=== PATIENT | female | born 1950 | race Caucasian/White ===

== ENCOUNTER → 2016-10-06 | Outpatient (CLI) | payer OTHER ==
[~2016-10-06] MED LIST: ACT/30 PO; CALC500C3 PO; CEPH500C2 PO; CHOL100027 PO; HYDR12.56 PO; INSDGI SC; LEVO1TAB PO; LEVO88TA3 PO; LISI2.5T5 PO; LSN5 PO; METF1000 PO; OXYC7.5T78 PO; SIMV40TA4 PO
--- NOTE | 2016-10-07 07:38 | MAMMOGRAPHY REPORT ---
BILATERAL DIGITAL SCREENING MAMMOGRAM TOMOSYNTHESIS WITH CAD: 10/06/2016 CLINICAL HISTORY: Routine screening. Patient has no complaints. TECHNIQUE: Breast tomosynthesis in addition to standard 2D mammography was performed. Current study was also evaluated with a Computer Aided Detection (CAD) system. COMPARISON: Comparison is made to exams dated: 10/04/2015 mammogram, 01/23/2014 mammogram, 11/29/2012 ammogram [facility], and 02/21/2007. BREAST COMPOSITION: There are scattered areas of fibroglandular density in both breasts. FINDINGS: There are stable intramammary lymph nodes in the upper outer posterior right breast. A st able asymmetry in the superior posterior right breast. No new suspicious mass, architectural distor tion or cluster of microcalcifications is seen. IMPRESSION: ACR BI-RADS CATEGORY 1: NEGATIVE There is no mammographic evidence of malignancy. A 1 year screening mammogram is recommended. The p atient will receive written notification of the results. Approximately 10% of breast cancers are not detected with mammography. A negative mammographic repor t should not delay biopsy if a clinically suggestive mass is present. Berenice Bautista M.D. ay/:10/06/2016 16:20:51 Demolition Hammer Operator: Delicia HOLDEN(Alejandro)(Kyle), [facility] letter sent: Normal 1/2 BI-RADS Code: ACR BI-RADS Category 1: Negative
== END | disposition home or self-care (01) ==
LOC: C.MAMM 09:36
PROVIDERS: ATTEND Internal Medicine
DX: Z12.31 Encounter for screening mammogram for malignant neoplasm of breast (principal)

== ENCOUNTER → 2016-10-10 | Outpatient (CLI) | payer OTHER ==
[2016-10-10 13:37] LABS: ESTIMATED AVERAGE GLUCOSE 160 mg/dl; HA1C FLAG Normal (Normal)
[2016-10-10 13:38] LABS: ALT/SGPT 34 U/L (12-78); BLOOD UREA NITROGEN 17 mg/dl (7-18); CALCIUM 8.6 mg/dl (8.5-10.1); CARBON DIOXIDE 27 mmol/L (21-32); CHLORIDE 100 mmol/L (98-107); CREATININE 0.82 mg/dl (0.60-1.20); GLUCOSE 137 mg/dl (70-99); POTASSIUM 4.5 mmol/L (3.5-5.1); SODIUM 137 mmol/L (136-145)
[2016-10-10 13:49] LABS: ALB/GLOB RATIO 1.1 (0.9-2); ALKALINE PHOSPHATASE 68 U/L (45-117); AST/SGOT 27 U/L (15-37); CHOLESTEROL 121 mg/dl (0-200); CHOLESTEROL/HDL RATIO 2.4; HDL CHOLESTEROL 51 mg/dl; LDL CHOLESTEROL CALCULATED 43 mg/dl; TRIGLYCERIDES 133 mg/dl (0-150); VERY LOW DENSITY LIPOPROT CALC 27 mg/dl
== END ==
LOC: C.LABPVFM 08:26
PROVIDERS: ATTEND Internal Medicine
DX: E11.9 Type 2 diabetes mellitus without complications (principal); E55.9 Vitamin D deficiency, unspecified; E89.0 Postprocedural hypothyroidism

== ENCOUNTER → 2017-04-07 | Day surgery (SDC) | payer OTHER ==
[2017-03-25 09:16] VITALS: Ht 161.3 cm; Wt 62.3 kg
[~2017-04-07] VITALS: Ht 161.3 cm; Wt 62.3 kg
[~2017-04-07] MED LIST changes: +500ML BSS 0.3ML EPI 1:1000PF IRRIG ONE; +ACETAMINOPHEN 325 MG TAB PO PRN; -ACT/30 PO; +AMVISC PLUS 0.8ML SYRINGE INT OCU ONE; +ATROPINE SULFATE 0.1 MG/ML 5ML SYR IV PRN; +BSS FLUSH ONE; -CEPH500C2 PO; +ENDOCOAT 0.85ML SYRINGE INT OCU ONE; +EpHEDrine SULFATE INJ 50 MG/ML AMP IV PRN; +EpINEphrine INJ 1MG/ML AMP 1 MG/ML AMP ONE; -HYDR12.56 PO; +LACTATED RINGER'S 1000ML 500 ML IV SCH; -LEVO1TAB PO; +LIDOCAINE 4% OP SOLN DROP CHARGE ONE; +LIDOCAINE 4% OP SOLN DROP CHARGE OPL SCH; +LIDOCAINE HCL 1% MPF 2 ML VIAL ONE; -LISI2.5T5 PO; +MIDAZOLAM HCL 1 MG/ML 2ML VIAL ONE; +MIX: 4ML BSS 1ML EPI 1:1000 PF TOP ONE; +MOXIFLOXACIN OPH SOLN PER DROP CHARGE ONE; -OXYC7.5T78 PO; +POVIDONE-IODINE OP SOLN 30 ML BTL ONE; +PROPARACAINE 0.5% OP SOLN PER DROP CHARGE OPL SCH; +TOBRAMYCIN/DEXAMETHASONE OPH OINT PER APPLN CHARGE ONE
--- NOTE | 2017-04-07 08:03 | History & Physical Bridge - SC ---
H&P Re-Evaluation Bridge Note: I have examined the patient, reviewed the History & Physical and in the interval since the performance of the History & Physical I have noted the following changes of clinical significance: No changes noted
[2017-04-07] MEDS: PHENYLEPHRINE HCL 2.5% OP SOLN PER DROP CHARGE OPL SCH ×3 (08:13→08:26)
[2017-04-07] MEDS: TROPICAMIDE 1% OP SOLN PER DROP CHARGE OPL SCH ×3 (08:14→08:27)
[2017-04-07] MEDS: MOXIFLOXACIN OPH SOLN PER DROP CHARGE OPL SCH ×3 (08:15→08:29)
[2017-04-07] MEDS: CYCLOPENTOLATE HCL 1% OP SOLN PER DROP CHARGE OPL SCH ×3 (08:15→08:28)
--- NOTE | 2017-04-07 09:16 | [facility] Post Operative Brief Note ---
Immediate Operative Summary Operative Date Apr 07, 2017. Pre-Operative Diagnosis Left Eye Cataract Post-Operative Diagnosis Same Procedure(s) Performed Left Eye Cataract PHacoemuslification With Intraocular Lens Implant Surgeon Dr. Carey Aquatic Director Surgeon(s) none Estimated Blood Loss None Findings left cataract Specimens None Complication(s) None Disposition
--- NOTE | 2017-04-07 09:17 | [facility] Operative Report ---
Operative Report Date of Service Apr 07, 2017. Operative Report Phaco with monofocal IOL DATE OF OPERATION: 04/07/17 PREOPERATIVE DIAGNOSIS: Senile nuclear cataract, left eye POSTOPERATIVE DIAGNOSIS: Senile nuclear cataract, left eye PROCEDURE PERFORMED: Phacoemulsification with intraocular lens implantation, left eye SURGEON: Dr. Mariano Carey ANESTHESIA: Topical with 1% intracameral lidocaine and monitored anesthesia care COMPLICATIONS: None DESCRIPTION OF PROCEDURE: After positively identifying the patient both verbally and by wristband in the preoperative area, the left eye was marked as the operative eye. The patient was then brought back to the operating room by the anesthesia and nursing staff where they were given a drop of Lidocaine and betadine into the operative eye. They were then sterilely prepped and draped in the standard fashion typical for ophthalmic surgery. Steri-strips were placed along the upper eyelids to keep the lashes back, and a lid speculum was placed into the operative eye. At this point, a documented time out was performed with members of the ophthalmology, nursing, and anesthesia staffs all agreeing upon the correct patient, correct location for surgery, correct procedure, and correct type and power of intraocular lens to be implanted. The microscope was then swung into position. First, a paracentesis wound was made using a sideport blade. Then, in sequence, 1% preservative-free lidocaine followed by Endocoat viscoelastic was injected into the anterior chamber. Next , the main incision was made with a keratome blade in triplanar fashion. A sharp cystotome was introduced into the eye and used to create a tear in the anterior capsule, which was directed into a continuous curvilinear capsulorrhexis using Utrata forceps. Hydrodissection was then performed with BSS on a flat-tip cannula. Next, the phacoemulsification handpiece was introduced into the eye and used to remove the nucleus in a [id number] fashion. This was done without complication and then the irrigation-aspiration handpiece was introduced into the eye and used to remove all remaining cortical and epinuclear material. Amvisc was then injected into the anterior chamber as well as into the capsular bag and using the lens injector system, an MX60 18.0 D lens, serial number [id number], and expiration date 09/2019 was injected into the capsular bag and rotated into the correct position. Next, the irrigation- aspiration handpiece was used to remove all remaining Amvisc. BSS was used to hydrate the main wound, and then BSS was injected into the paracentesis site to reach physiologic pressure and then the main wound was checked and found to be watertight. The patient was given drops of Vigamox and Tobradex ointment into the operative eye, and then the surrounding area was cleaned and dried. A clear plastic shield was placed over the eye and the patient was then sat up and taken from the operating room by the anesthesia staff having tolerated the procedure well and suffering no complications. DISPOSITION: The patient was returned to the recovery room in stable condition. I attest to the content of the Intraoperative Record and any orders documented therein. Any exceptions are noted below.
--- NOTE | 2017-04-07 09:18 | Discharge Instructions-SurgCtr ---
Discharge Instructions Date of Service Apr 07, 2017. Visit Reason for Visit: Cataract Left Eye Discharge Discharge Diagnosis / Problem: left cataract Discharge Goals Goal(s): Decrease discomfort, Improve function Activity Recommendations Activity Limitations: as noted below Anesthesia . Post Anesthesia Instructions: If you have had General Anesthesia or IV Sedation: * Do not drive today. * Resume driving when surgeon permits. * Do not make important decisions or sign legal documents today. * Call surgeon for: 1. Temperature elevations greater than 101 degrees F. 2. Uncontrollable pain. 3. Excessive bleeding. 4. Persistent nausea and vomiting. 5. Medication intolerance (nausea, vomiting or rash). * For nausea and vomiting use only clear liquids such as: tea, soda, bouillon until nausea subsides, then gradually increase diet as tolerated. * If you have any concerns or questions, call your surgeon's office. If physician is unavailable and it is an emergency, call 911 or go to the nearest emergency room. . Instructions / Follow-Up Instructions / Follow-Up ACTIVITY RECOMMENDATIONS: * Light activities. * You may walk outside, read, watch television. * You may notice redness on the white part of the eye and some blurry vision - this is normal. MEDICATIONS: Resume previous medications unless instructed otherwise by your surgeon. Start all eye drops at 11:30 am today: * Eye drops (today): Prednisone - one drop in operative eye every 2 hours while awake Ofloxacin - one drop in operative eye every 2 hours while awake Bromfenac - one drop in operative eye daily SPECIAL CARE INSTRUCTIONS: * Tape plastic shield over eye to sleep at night. Call your doctor at with any concerns or problems. FOLLOW UP VISIT: Follow-up with Dr Carey at [facility] as scheduled. Diet Recommendations Home Diet: no limitations Procedures Procedures Performed: Left Eye Cataract PHacoemuslification With Intraocular Lens Implant Pending Studies Studies pending at discharge: no Medical Emergencies . Who to Call and When: Medical Emergencies: If at any time you feel your situation is an emergency, please call 911 immediately. . Non-Emergent Contact Non-Emergency issues call your: Surgeon . . "Provider Documentation" section prepared by Mariano Carey. .
[2017-04-07 09:20] VITALS: TEMP 36.7
--- NOTE | 2017-04-07 09:24 | Anesthesia Progress Nt - [facility] ---
Anesthesia Post Op Note Date & Time Apr 07, 2017 at 09:24 Vital Signs Pain Intensity: 0 Vital Signs Past 12 Hours Date Time Temp Pulse Resp B/P (MAP) Pulse Ox O2 Delivery O2 Flow Rate FiO2 04/07/17 09:20 36.7 68 12 120/76 (91) 100 Room Air 04/07/17 08:25 36.4 82 16 124/73 (90) 97 Room Air Notes Mental Status: alert / awake / arousable, participated in evaluation Pt Amnestic to Procedure: Yes Nausea / Vomiting: adequately controlled Pain: adequately controlled Airway Patency, RR, SpO2: stable & adequate BP & HR: stable & adequate Hydration State: stable & adequate Anesthetic Complications: no major complications apparent
[2017-04-07 09:41] VITALS: BP 107/64; PULSE 74; O2SAT 100
== END | disposition home or self-care (01) ==
LOC: X.SURG 07:42
PROVIDERS: ATTEND Ophthalmology
DX: H25.12 Age-related nuclear cataract, left eye (principal); E11.36 Type 2 diabetes mellitus with diabetic cataract; I10 Essential (primary) hypertension; E78.00 Pure hypercholesterolemia, unspecified; E07.9 Disorder of thyroid, unspecified; Z79.82 Long term (current) use of aspirin; Z79.84 Long term (current) use of oral hypoglycemic drugs; Z79.899 Other long term (current) drug therapy

== ENCOUNTER → 2017-04-21 | Day surgery (SDC) | payer OTHER ==
[2017-04-20 13:39] VITALS: Ht 161.3 cm; Wt 62.3 kg
[~2017-04-21] VITALS: Ht 161.3 cm; Wt 62.3 kg
[~2017-04-21] MED LIST changes: -LIDOCAINE 4% OP SOLN DROP CHARGE OPL SCH; +LIDOCAINE 4% OP SOLN DROP CHARGE OPR SCH; -PROPARACAINE 0.5% OP SOLN PER DROP CHARGE OPL SCH; +PROPARACAINE 0.5% OP SOLN PER DROP CHARGE OPR SCH
[2017-04-21] MEDS: PHENYLEPHRINE HCL 2.5% OP SOLN PER DROP CHARGE OPR SCH ×3 (07:52→08:02)
[2017-04-21] MEDS: TROPICAMIDE 1% OP SOLN PER DROP CHARGE OPR SCH ×3 (07:53→08:03)
[2017-04-21] MEDS: CYCLOPENTOLATE HCL 1% OP SOLN PER DROP CHARGE OPR SCH ×3 (07:54→08:04)
[2017-04-21] MEDS: MOXIFLOXACIN OPH SOLN PER DROP CHARGE OPR SCH ×3 (07:56→08:05)
--- NOTE | 2017-04-21 09:13 | [facility] Post Operative Brief Note ---
Immediate Operative Summary Operative Date Apr 21, 2017. Pre-Operative Diagnosis Right Eye Cataract Post-Operative Diagnosis Same Procedure(s) Performed Right Cataract Phacoemulsification With Intraocular Lens Implant Surgeon Dr Carey Feed Handler Surgeon(s) None Estimated Blood Loss 0ml Findings right cataract Specimens None Complication(s) None Disposition
--- NOTE | 2017-04-21 09:14 | [facility] Operative Report ---
Operative Report Date of Service Apr 21, 2017. Operative Report Phaco with monofocal IOL DATE OF OPERATION: 04/21/17 PREOPERATIVE DIAGNOSIS: Senile nuclear cataract, right eye POSTOPERATIVE DIAGNOSIS: Senile nuclear cataract, right eye PROCEDURE PERFORMED: Phacoemulsification with intraocular lens implantation, right eye SURGEON: Dr. Mariano Carey ANESTHESIA: Topical with 1% intracameral lidocaine and monitored anesthesia care COMPLICATIONS: None DESCRIPTION OF PROCEDURE: After positively identifying the patient both verbally and by wristband in the preoperative area, the right eye was marked as the operative eye. The patient was then brought back to the operating room by the anesthesia and nursing staff where they were given a drop of Lidocaine and betadine into the operative eye. They were then sterilely prepped and draped in the standard fashion typical for ophthalmic surgery. Steri-strips were placed along the upper eyelids to keep the lashes back, and a lid speculum was placed into the operative eye. At this point, a documented time out was performed with members of the ophthalmology, nursing, and anesthesia staffs all agreeing upon the correct patient, correct location for surgery, correct procedure, and correct type and power of intraocular lens to be implanted. The microscope was then swung into position. First, a paracentesis wound was made using a sideport blade. Then, in sequence, 1% preservative-free lidocaine followed by Endocoat viscoelastic was injected into the anterior chamber. Next , the main incision was made with a keratome blade in triplanar fashion. A sharp cystotome was introduced into the eye and used to create a tear in the anterior capsule, which was directed into a continuous curvilinear capsulorrhexis using Utrata forceps. Hydrodissection was then performed with BSS on a flat-tip cannula. Next, the phacoemulsification handpiece was introduced into the eye and used to remove the nucleus in a [id number] fashion. This was done without complication and then the irrigation-aspiration handpiece was introduced into the eye and used to remove all remaining cortical and epinuclear material. Amvisc was then injected into the anterior chamber as well as into the capsular bag and using the lens injector system, an MX60 22.0 D lens, serial number [id number], and expiration date 01/2020 was injected into the capsular bag and rotated into the correct position. Next, the irrigation- aspiration handpiece was used to remove all remaining Amvisc. BSS was used to hydrate the main wound, and then BSS was injected into the paracentesis site to reach physiologic pressure and then the main wound was checked and found to be watertight. The patient was given drops of Vigamox and Tobradex ointment into the operative eye, and then the surrounding area was cleaned and dried. A clear plastic shield was placed over the eye and the patient was then sat up and taken from the operating room by the anesthesia staff having tolerated the procedure well and suffering no complications. DISPOSITION: The patient was returned to the recovery room in stable condition. I attest to the content of the Intraoperative Record and any orders documented therein. Any exceptions are noted below.
[2017-04-21 09:15] VITALS: TEMP 36.4
--- NOTE | 2017-04-21 09:15 | Discharge Instructions-SurgCtr ---
Discharge Instructions Date of Service Apr 21, 2017. Visit Reason for Visit: Right Cataract Discharge Discharge Diagnosis / Problem: right cataract Discharge Goals Goal(s): Decrease discomfort, Improve function Medications Stopped Medications Name(s): Metformin last dose Wednesday evening. Also , only took 16 units of insulin last night instead of 20. Activity Recommendations Activity Limitations: as noted below Anesthesia . Post Anesthesia Instructions: If you have had General Anesthesia or IV Sedation: * Do not drive today. * Resume driving when surgeon permits. * Do not make important decisions or sign legal documents today. * Call surgeon for: 1. Temperature elevations greater than 101 degrees F. 2. Uncontrollable pain. 3. Excessive bleeding. 4. Persistent nausea and vomiting. 5. Medication intolerance (nausea, vomiting or rash). * For nausea and vomiting use only clear liquids such as: tea, soda, bouillon until nausea subsides, then gradually increase diet as tolerated. * If you have any concerns or questions, call your surgeon's office. If physician is unavailable and it is an emergency, call 911 or go to the nearest emergency room. . Instructions / Follow-Up Instructions / Follow-Up ACTIVITY RECOMMENDATIONS: * Light activities. * You may walk outside, read, watch television. * You may notice redness on the white part of the eye and some blurry vision - this is normal. MEDICATIONS: Resume previous medications unless instructed otherwise by your surgeon. Start all eye drops at 11:30 am today: * Eye drops (today): Prednisone - one drop in operative eye every 2 hours while awake Ofloxacin - one drop in operative eye every 2 hours while awake Bromfenac - one drop in operative eye daily SPECIAL CARE INSTRUCTIONS: * Tape plastic shield over eye to sleep at night. Call your doctor at with any concerns or problems. FOLLOW UP VISIT: Follow-up with Dr Carey at [facility] as scheduled. Diet Recommendations Home Diet: no limitations Procedures Procedures Performed: Right Cataract Phacoemulsification With Intraocular Lens Implant Pending Studies Studies pending at discharge: no Medical Emergencies . Who to Call and When: Medical Emergencies: If at any time you feel your situation is an emergency, please call 911 immediately. . Non-Emergent Contact Non-Emergency issues call your: Surgeon . . "Provider Documentation" section prepared by Mariano Carey. .
--- NOTE | 2017-04-21 09:38 | Anesthesia Progress Nt - [facility] ---
Anesthesia Post Op Note Date & Time Apr 21, 2017 at 09:38 Vital Signs Pain Intensity: 0 Vital Signs Past 12 Hours Date Time Temp Pulse Resp B/P (MAP) Pulse Ox O2 Delivery O2 Flow Rate FiO2 04/21/17 09:15 36.4 75 16 113/68 (83) 100 Room Air 04/21/17 07:43 36.3 70 22 137/80 (99) 98 Room Air Notes Mental Status: alert / awake / arousable, participated in evaluation Pt Amnestic to Procedure: Yes Nausea / Vomiting: adequately controlled Pain: adequately controlled Airway Patency, RR, SpO2: stable & adequate BP & HR: stable & adequate Hydration State: stable & adequate Anesthetic Complications: no major complications apparent
[2017-04-21 09:40] VITALS: BP 114/60; PULSE 67; O2SAT 100
== END | disposition home or self-care (01) ==
LOC: X.SURG 07:36
PROVIDERS: ATTEND Ophthalmology
DX: H25.11 Age-related nuclear cataract, right eye (principal); I10 Essential (primary) hypertension; E78.00 Pure hypercholesterolemia, unspecified; E03.9 Hypothyroidism, unspecified; E11.9 Type 2 diabetes mellitus without complications; Z79.82 Long term (current) use of aspirin; Z79.84 Long term (current) use of oral hypoglycemic drugs; Z79.899 Other long term (current) drug therapy

== ENCOUNTER → 2017-05-11 | Outpatient (CLI) | payer OTHER ==
[~2017-05-11] MED LIST changes: -500ML BSS 0.3ML EPI 1:1000PF IRRIG ONE; -ACETAMINOPHEN 325 MG TAB PO PRN; -AMVISC PLUS 0.8ML SYRINGE INT OCU ONE; -ATROPINE SULFATE 0.1 MG/ML 5ML SYR IV PRN; -BSS FLUSH ONE; -ENDOCOAT 0.85ML SYRINGE INT OCU ONE; -EpHEDrine SULFATE INJ 50 MG/ML AMP IV PRN; -EpINEphrine INJ 1MG/ML AMP 1 MG/ML AMP ONE; -LACTATED RINGER'S 1000ML 500 ML IV SCH; -LIDOCAINE 4% OP SOLN DROP CHARGE ONE; -LIDOCAINE 4% OP SOLN DROP CHARGE OPR SCH; -LIDOCAINE HCL 1% MPF 2 ML VIAL ONE; -MIDAZOLAM HCL 1 MG/ML 2ML VIAL ONE; -MIX: 4ML BSS 1ML EPI 1:1000 PF TOP ONE; -MOXIFLOXACIN OPH SOLN PER DROP CHARGE ONE; -POVIDONE-IODINE OP SOLN 30 ML BTL ONE; -PROPARACAINE 0.5% OP SOLN PER DROP CHARGE OPR SCH; -TOBRAMYCIN/DEXAMETHASONE OPH OINT PER APPLN CHARGE ONE
[2017-05-11 13:01] LABS: ESTIMATED AVERAGE GLUCOSE 163 mg/dl; HA1C FLAG Normal (Normal)
[2017-05-11 13:10] LABS: HEPATITIS B AB NEG
[2017-05-11 13:54] LABS: ALT/SGPT 26 U/L (12-78); AST/SGOT 20 U/L (15-37); BLOOD UREA NITROGEN 17 mg/dl (7-18); BUN/CREATININE RATIO 24.6 (10-20); CALCIUM 8.5 mg/dl (8.5-10.1); CARBON DIOXIDE 27 mmol/L (21-32); CHLORIDE 101 mmol/L (98-107); CREATININE 0.69 mg/dl (0.60-1.20); GLUCOSE 69 mg/dl (70-99); POTASSIUM 4.5 mmol/L (3.5-5.1); SODIUM 135 mmol/L (136-145)
[2017-05-11 14:04] LABS: ALB/GLOB RATIO 1.1 (0.9-2); ALKALINE PHOSPHATASE 66 U/L (45-117); THYROID STIMULATING HORMONE 0.767 uIu/ml (0.300-4.500)
== END | disposition home or self-care (01) ==
LOC: C.LABPVFM 09:17
PROVIDERS: ATTEND Internal Medicine
DX: Z12.11 Encounter for screening for malignant neoplasm of colon (principal); E11.9 Type 2 diabetes mellitus without complications; Z11.59 Encounter for screening for other viral diseases; E78.5 Hyperlipidemia, unspecified; E55.9 Vitamin D deficiency, unspecified

== ENCOUNTER → 2017-07-28 | Outpatient (CLI) | payer OTHER ==
[~2017-07-28] MED LIST changes: +LISI-730 PO; -LSN5 PO
--- NOTE | 2017-07-28 10:46 | DIAGNOSTIC IMAGING REPORT ---
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 No residual tissue IMPRESSION: Findings consistent with a prior total thyroidectomy. No residual thyroid tissue is identified. The above report was generated using voice recognition software. It may contain grammatical, syntax or spelling errors. Electronically signed by: Rj Marcial M.D. 07/28/2017 10:44 AM Dictated Date/Time: 07/28/2017 10:43 AM
== END | disposition home or self-care (01) ==
LOC: C.ULTR 10:13
PROVIDERS: ATTEND Internal Medicine Endocrinology, Diabetes & Metabolism
DX: Z85.850 Personal history of malignant neoplasm of thyroid (principal); E89.0 Postprocedural hypothyroidism

== ENCOUNTER → 2017-10-04 | Outpatient (CLI) | payer OTHER ==
[~2017-10-04] MED LIST changes: -LISI-730 PO; +LSN5 PO
[2017-10-04 13:10] LABS: HEMOGLOBIN A1C 7.2 % (4.5-5.6)
[2017-10-04 15:20] LABS: CREATININE RANDOM URINE 68.1 mg/dl
== END | disposition home or self-care (01) ==
LOC: C.LABPVFM 08:57
PROVIDERS: ATTEND Internal Medicine Endocrinology, Diabetes & Metabolism
DX: C73 Malignant neoplasm of thyroid gland (principal); E89.0 Postprocedural hypothyroidism; E55.9 Vitamin D deficiency, unspecified; E10.65 Type 1 diabetes mellitus with hyperglycemia

== ENCOUNTER 2024-06-02 17:41 | Inpatient (IN) ==
[2024-06-02 18:34] LABS: Basophils # (auto) 0.05 K/uL (0.00-0.20); Basophils % (auto) 0.4 %; Eosinophils # (auto) 0.02 K/uL (0.00-0.50); Eosinophils % (auto) 0.2 %; Hematocrit (blood only) 41.4 % (37.0-47.0); Hemoglobin 13.8 g/dl (12.0-16.0); Immature Granulocytes # (auto) 0.05 K/uL (0.01-0.20); Immature Granulocytes % (auto) 0.4 %; Lymphocytes # (auto) 1.26 K/uL (1.20-3.40); Lymphocytes % (auto) 10.3 %; Mean Corpuscular Hemoglobin 30.9 pg (25.0-34.0); Mean Corpuscular Hgb Conc 33.3 g/dL (32.0-36.0); Mean Corpuscular Volume 92.6 fL (80.0-100.0); Mean Platelet Volume 10.1 fL (9.4-12.4); Monocytes # (auto) 0.89 K/uL (0.11-0.59); Monocytes % (auto) 7.3 %; Neutrophils # (auto) 9.94 K/uL (1.40-6.50); Neutrophils % (auto) 81.4 %; Platelet Count 479 K/uL (130-400); RDW Coefficient of Variation 11.9 % (11.5-14.5); RDW Standard Deviation 40.7 fL (36.4-46.3); Red Blood Count 4.47 M/uL (4.20-5.40); White Blood Count 12.21 K/ul (4.8-10.8)
[2024-06-02] MEDS: ACETAMINOPHEN 1,000 MG/100 ML VIAL IV STA (19:10)
[2024-06-02] MEDS: SODIUM CHLORIDE 0.9% 500 ML IV ONE (19:11)
[2024-06-02] MEDS: OPTIRAY 320 100ml IV ONE (19:54)
[2024-06-02] MEDS: SODIUM CHLORIDE 0.9% 1,000 ML IV SCH (21:06)
--- NOTE | 2024-06-02 22:22 | Emergency Department Note ---
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 She had significant hypercalcemia with a calcium of 12.4. There was also concerns for T3 fracture. Patient was found to have a lung mass. Hydration was initiated. Patient was given IV acetaminophen due to her significant pain. She wanted to start with something mild. Patient will require further management and workup in the hospital. She will likely need significant pain management given her level of discomfort. CT imaging of the chest, abdomen and pelvis was performed. Official reads are pending however multiple bony lesions noted as well as lung masses. Concerning for carcinoma with bony metastases. Consultation was made with Dr. Roberto Lucas of the [facility] service. Patient was evaluated in the ER for further management. Care/management discussed with: dice manager Level of care consideration(s): After review of the information above and other included data, I feel the patient requires escalation of care to admission Triage Nursing notes: reviewed and agree them. Vital Signs: reviewed and remarkable for no significant abnormalities Additional History obtained from: Patient's daughter. Chronic Medical/Social Conditions affecting care: Diabetes Prior/ Outside/ External records reviewed: none Differential Diagnosis: Infection, dehydration, metabolic abnormality, hypo/hyperglycemia, electrolyte disturbance, anemia, malignancy, neurologic, as well as other pathologies. Diagnostics, independently interpreted by me: ECG: Twelve-lead ECG reveals a sinus rhythm with PACs at 89 bpm. Left atrial enlargement. LVH present. No ST elevation or depression. Cardiac Monitoring: Cardiac monitoring ordered by me: The patient was placed on continuous cardiac monitoring and observed. It revealed a normal sinus rhythm at 82 beats per minute without ectopy or evidence of dysrhythmia. Medical decision rules: none Imaging studies: CT scan of the chest abdomen pelvis reveals multiple lung lesions as well as bony lesions scattered throughout the spine and pelvis. I refer you to the EMR for further details. HPI: 74 year old Female arrives for evaluation of evaluation of abnormal labs.. Patient states that she had lab testing done and was found to have high calcium and a low sodium. She also had x-ray imaging and there was a mass noted in the left lung as well as a T3 fracture. Patient notes she has been dealing with left-sided sciatica for quite some time. Patient notes baseline pain is a 3. Describes pain in the thoracic as well as left hemipelvis area upwards of 10 with movement. She does feel better with resting still. Daughter does note the patient has lost about 20 pounds in the recent months. Patient states she feels generally weak and has no appetite. Pt denies LOC, headache, fevers, chills, diaphoresis, visual changes, neck pain, chest pain, breathing difficulties, nausea, vomiting, abdominal pain, loss of bowel or bladder, melena, hematochezia, urinary symptoms, numbness, lymphadenopathy, rash, or other complaints. PAST MEDICAL HISTORY: See Below, diabetes PAST SURGICAL HISTORY: See Below, SOCIAL HISTORY: See Below, retired HOME MEDICATIONS: See Below ALLERGIES: See Below VITALS: See Below PHYSICAL EXAMINATION: GENERAL: Awake, alert, uncomfortable-appearing, in no distress HENT: Normocephalic, atraumatic. Oropharynx unremarkable. EYES: Mildly pale conjunctiva. Sclera non-icteric. NECK: Inspection normal. Non-tender. Supple. No nuchal rigidity. FROM. No masses. RESPIRATORY: Clear to auscultation. No wheezes. No rales. Normal respiratory effort. CARDIAC: Normal rate. Normal rhythm. No murmurs. No rubs. Extremities warm and well perfused. Pulses equal. No JVD. GI: Soft, non-distended. No tenderness to palpation. No rebound or guarding. No masses. RECTAL: Deferred. MUSCULOSKELETAL: Atraumatic. Chest examination reveals no tenderness. The back is kyphotic on inspection without obvious abnormality. There is some mild upper thoracic paraspinal muscle tenderness. There is no CVA tenderness to palpation. No joint edema. LOWER EXTREMITIES: Calves are equal size bilaterally and non-tender. Trace edema. No discoloration. NEURO: Normal sensorium. Generally weak but no focal sensory or motor deficits noted. SKIN: No rash or jaundice noted. 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 (Acute) Lung mass (Acute) Closed T3 fracture (Acute) Hypercalcemia (Acute) Sciatica of left side associated with disorder of lumbar spine Gait disturbance Serum calcium elevated Decreased hearing of both ears Postmenopausal state Bilateral leg cramps Health care maintenance Diabetes mellitus type 1, controlled (Chronic) Dyslipidemia (Chronic) Hx of papillary thyroid carcinoma (Acute) Hypertension (Chronic) Hypothyroidism, postablative (Chronic) Osteopenia (Acute) Sensorineural hearing loss (Acute) Vitamin D deficiency (Acute) Medical History Proteinuria Surgical History H/O eye surgery H/O total thyroidectomy Family History Daughter Thyroid cancer Mother Thyroid cancer Diabetes Other Thyroid disorder Denies family history of Ovarian cancer Prostate cancer Myocardial infarction Breast cancer Colorectal cancer Social History Smoking Status: Never smoker Second Hand Exposure: No; Do You Dip or Chew Tobacco: No; Hx Alcohol Use: No Hx Substance Use: No Preferred Language: Swiss Visual Impairment: No Limitations Hearing Ability: Use of Hearing Aid Director Case Required: No marital status: Current Living Situation: Spouse current occupational status: retired current occupation: homemaker Feels Safe at Home: Yes Childhood Exposure to Second-Hand Smoke: No Dental Care, Regularly: Yes Physical Activity Frequency: 3-4 Times per Week Seatbelt Use: always Sunscreen Use: Yes Allergies Allergies Allergy/AdvReac Type Severity Reaction Status Date / Time tetanus immune globulin Allergy Severe TETANUS Verified 06/02/24 09:00 VACCINE-HIVES ARTIFICAL SWEETENERS AdvReac Severe MIGRAINES Uncoded 06/02/24 09:00 Home Meds Home Medications Medication Instructions Recorded Confirmed cyanocobalamin (vitamin B-12) 500 PO .TAKE 1 TABLET DAILY. #90 tabs 01/19/19 06/02/24 mcg tablet lancets (OneTouch UltraSoft #50 ea 12/06/19 06/02/24 Lancets) aspirin 81 mg tablet,delayed 81 mg PO DAILY 01/23/20 06/02/24 release calcium carbonate 2,000 mg PO DAILY 01/23/20 06/02/24 Previous Rx's Medication Instructions Recorded cholecalciferol (vitamin D3) 25 1,000 units PO DAILY #30 caps 02/06/20 mcg (1,000 unit) capsule blood sugar diagnostic (OneTouch #200 ea 06/11/20 Ultra Blue Test Strip) lancets 33 gauge (OneTouch Delica #200 ea 06/11/20 Lancets) Novolog FlexPen U-100 Insulin 100 15 unit (0.15 mL) subcut DAILY #15 02/01/23 unit/mL (3 mL) subcutaneous mL (insulin aspart U-100) BD Ultra-Fine Jany Pen Needle 32 #400 ea 07/08/23 gauge x 5/32" (pen needle, diabetic) levothyroxine 88 mcg tablet 88 mcg PO DAILY #90 tabs 09/20/23 lisinopril 5 mg tablet 5 mg PO DAILY #90 tabs 01/25/24 simvastatin 40 mg tablet 40 mg PO DAILY #90 tabs 01/25/24 insulin glargine 100 unit/mL (3 16 unit (0.16 mL) subcut DAILY 03/02/24 mL) subcutaneous pen (Lantus Diabetes #15 mL Solostar U-100 Insulin) meloxicam 7.5 mg tablet 7.5 mg PO DAILY PRN Low back pain 05/15/24 #30 tabs methocarbamol 500 mg tablet 500 mg PO TID PRN muscle spasm #30 05/31/24 tabs tramadol 50 mg tablet 50 mg PO BID PRN pain #30 tabs 06/02/24 Results & Data (ED) Vital Signs Vital Signs - 24 hr 06/02/24 17:46 06/02/24 18:05 06/02/24 21:30 Temperature 36.8 C Temperature Source Temporal Artery Scan Pulse Rate 104 H 96 H Pulse Rate [Right Finger] 82 Pulse Rhythm [Right Finger] Regular Pulse Strength [Right Finger] Normal Respiratory Rate 18 18 Respiratory Effort / Characteristics Non-Labored Spontaneous Respiratory Depth Normal Respiratory Pattern Regular Blood Pressure 158/90 H Blood Pressure [Right Arm] 159/91 H Blood Pressure Mean 112 Blood Pressure Mean [Right Arm] 113 Blood Pressure Position [Right Arm] Sitting Pulse Oximetry 97 97 Oxygen Delivery Method Room Air Room Air Sepsis Recent Fever Within 48 Hours No Sepsis New/Unexplained Change in Mental Status N/A Sepsis Action Taken by Nursing No Action Required Laboratory Data 06/02/24 Unknown Lab Results 06/02/24 06/02/24 Range/Units 20:04 Unknown WBC 12.21 H (4.8-10.8) K/ul RBC 4.47 (4.20-5.40) M/uL Hgb 13.8 (12.0-16.0) g/dl Hct 41.4 (37.0-47.0) % MCV 92.6 (80.0-100.0) fL MCH 30.9 (25.0-34.0) pg MCHC 33.3 (32.0-36.0) g/dL RDW Std Deviation 40.7 (36.4-46.3) fL RDW Coeff of Francesca 11.9 (11.5-14.5) % Plt Count 479 H (130-400) K/uL MPV 10.1 (9.4-12.4) fL Immature Gran % (Auto) 0.4 % Neut % (Auto) 81.4 % Lymph % (Auto) 10.3 % [place] % (Auto) 7.3 % Eos % (Auto) 0.2 % Baso % (Auto) 0.4 % Neut # (Auto) 9.94 H (1.40-6.50) K/uL Lymph # (Auto) 1.26 (1.20-3.40) K/uL [place] # (Auto) 0.89 H (0.11-0.59) K/uL Eos # (Auto) 0.02 (0.00-0.50) K/uL Baso # (Auto) 0.05 (0.00-0.20) K/uL Immature Gran # (Auto) 0.05 (0.01-0.20) K/uL 25-OH Vitamin D Total 71.7 (30-100) ng/ml PTH Intact < 1.0 L (12.0-88.0) pg/ml Administered Medications Sodium Chloride (Nss) 1,000 mls @ 125 mls/hr IV .Q8H ANALILIA Stop: 06/03/24 18:29 Last Admin: 06/02/24 21:06 Dose: 125 mls/hr Documented By: [facility] Discontinued Medications Sodium Chloride (Nss) 500 mls @ 999 mls/hr IV .Q31M ONE Stop: 06/02/24 18:57 Last Infusion: 06/02/24 19:50 Dose: Infused Documented By: [facility] Admin: 06/02/24 19:11 Dose: 999 mls/hr Documented By: [facility] Acetaminophen (Ofirmev) 1,000 mg in 100 mls @ 400 mls/hr IV NOW STA Stop: 06/02/24 18:43 Last Infusion: 06/02/24 19:50 Dose: Infused Documented By: [facility] Admin: 06/02/24 19:10 Dose: 400 mls/hr Documented By: [facility] Ioversol (Optiray 320 100ml) 91 ml IV ONCE ONE Stop: 06/02/24 19:55 Last Admin: 06/02/24 19:54 Dose: 91 ml Documented By: [facility] Discharge Plan Visit Data Chief Complaint: Abnormal Labs/Diagnostic Testing Stated Complaint: CT SCAN, ABNORMAL LABS ED Provider: Chico Calderón Discharge Problem: Hypercalcemia, Closed T3 fracture, Lung mass, 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 Forms Stand Alone Forms: My [facility] Prescriptions Prescriptions: No Action cholecalciferol (vitamin D3) 25 mcg (1,000 unit) capsule 1,000 units PO DAILY Qty: 30 0RF (DME) OneTouch Ultra Blue Test Strip Strip See Dose Instructions .ROUTE .MEDSUPPLY Qty: 200 8RF Dose Instruction: As directed Rx Instructions: Test blood suger at least 3 times a day (DME) lancets [OneTouch Delica Lancets] 33 gauge misc See Rx Instructions .ROUTE .MEDSUPPLY Qty: 200 8RF Rx Instructions: use to test sugars 3 times a day insulin aspart U-100 [Novolog FlexPen U-100 Insulin] 100 unit/mL (3 mL) insulin pen 15 unit SQ DAILY Qty: 15 5RF Rx Instructions: 4 units breadfast, 4 units lunch, 7 units dinner (DME) pen needle, diabetic [BD Ultra-Fine Jany Pen Needle] 32 gauge x 5/32" needle See Dose Instructions .ROUTE .MEDSUPPLY Qty: 400 3RF Dose Instruction: As directed Rx Instructions: use one 4 x daily levothyroxine 88 mcg tablet 88 mcg PO DAILY Qty: 90 3RF simvastatin 40 mg tablet 40 mg PO DAILY Qty: 90 3RF lisinopril 5 mg tablet 5 mg PO DAILY Qty: 90 3RF insulin glargine [Lantus Solostar U-100 Insulin] 100 unit/mL (3 mL) insulin pen 16 unit SQ DAILY Qty: 15 1RF meloxicam 7.5 mg tablet 7.5 mg PO DAILY PRN (Reason: Low back pain) Qty: 30 0RF Rx Instructions: Always take with food methocarbamol 500 mg tablet 500 mg PO TID PRN (Reason: muscle spasm) Qty: 30 0RF cyanocobalamin (vitamin B-12) 500 mcg tablet PO .TAKE 1 TABLET DAILY. Qty: 90 (DME) lancets [OneTouch UltraSoft Lancets] Misc See Rx Instructions .ROUTE .MEDSUPPLY Qty: 50 Rx Instructions: As directed aspirin 81 mg tablet,delayed release (DR/EC) 81 mg PO DAILY calcium carbonate 400 mg calcium (1,000 mg) tablet,chewable 2,000 mg PO DAILY Hold Instructions: high calcium tramadol 50 mg tablet 50 mg PO BID PRN (Reason: pain) Qty: 30 0RF Referrals Referrals: Idania Carballo MD [Primary Care Provider] -
--- NOTE | 2024-06-02 22:25 | History & Physical Report ---
Date of Service June 02, 2024 Assessment & Plan (1) Hypercalcemia: Plan: Suspected hypercalcemia of malignancy Continue to hold calcium carbonate - reportedly not taken this for months Continue to hydrate with NSS @ 125ml/hr overnight, repeat level in AM; consider bisphosphonate if remains elevated PTH suppressed, PTHrP ordered with AM labs Vitamin D level normal (2) 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: Plan: Consider consulting radiation oncology if CTs concerning for malignancy Acetaminophen 1g PO TID Tramadol 50-100mg q4h PRN for breakthrough pain, morphine if tramadol not effective PT/OT (3) Lung mass: Plan: CT chest/abdomen/pelvis and lumbar spine with IV contrast ordered by ER, pending (4) Diabetes mellitus type 1, controlled: Plan: Hemoglobin A1C 7.6 in March, no need to repeat Continue Lantus 16 units HS Novolog: --Goal BSG Range: Low 110 mg/dL, High 140 mg/dL --Correction Factor: 45 mg/dL/unit --Carbohydrate ratio = 15 g/unit --BSGs ACHS if eating, q6h if npo Due to T1DM will consult pharmacy for ongoing glycemic control (5) Hypothyroidism, postablative: Plan: TSH with AM labs Continue levothyroxine 88 mcg PO daily Plan HTN - continue lisinopril VTE Prophylaxis - Lovenox 40mg SQ HS Diet - T1DM Disposition - admit to med/surg Admission and Anticipated Discharge Date Admission Date: June 02, 2024 History of Present Illness Chief Complaint: Abnormal outpatient XR and labs Primary Care Provider: Idania Carballo MD Daxa Montoya is a 74 year old female who presents to the ER due to abnormal outpatient XR and labs (hypercalcemia). She reports a 2 month history of worsening sciatic pain radiating to her left leg with occasional foot pain when she first gets up. More recently her pain has been upper thoracic on her back radiating between her scapulas, sharp. Also have pain in right hip on ambulation. With regards to hypercalcemia she does note loss of appetite, lethargy, bone pain and muscle weakness. No increased thirst, kidney stones, nausea, vomiting or constipation. Allergies Allergy/AdvReac Type Severity Reaction Status Date / Time tetanus immune globulin Allergy Severe TETANUS Verified 06/02/24 09:00 VACCINE-HIVES aspartame AdvReac Severe MIGRAINE Verified 06/02/24 23:03 W/ ARTIFICIAL SWEETENERS Home Medications Medication Instructions Recorded Confirmed Type cyanocobalamin (vitamin B-12) 500 PO .TAKE 1 TABLET DAILY. #90 tabs 01/19/19 06/02/24 History mcg tablet lancets (EkotropeTouch UltraSoft #50 ea 12/06/19 06/02/24 History Lancets) aspirin 81 mg tablet,delayed 81 mg PO DAILY 01/23/20 06/02/24 History release cholecalciferol (vitamin D3) 25 1,000 units PO DAILY #30 caps 02/06/20 06/02/24 Rx mcg (1,000 unit) capsule blood sugar diagnostic (OneTouch #200 ea 06/11/20 06/02/24 Rx Ultra Blue Test Strip) lancets 33 gauge (OneTouch Delica #200 ea 06/11/20 06/02/24 Rx Lancets) Novolog FlexPen U-100 Insulin 100 15 unit (0.15 mL) subcut DAILY #15 02/01/23 06/02/24 Rx unit/mL (3 mL) subcutaneous mL (insulin aspart U-100) BD Ultra-Fine Jany Pen Needle 32 #400 ea 07/08/23 06/02/24 Rx gauge x 5/32" (pen needle, diabetic) levothyroxine 88 mcg tablet 88 mcg PO DAILY #90 tabs 09/20/23 06/02/24 Rx lisinopril 5 mg tablet 5 mg PO DAILY #90 tabs 01/25/24 06/02/24 Rx simvastatin 40 mg tablet 40 mg PO DAILY #90 tabs 01/25/24 06/02/24 Rx insulin glargine 100 unit/mL (3 16 unit (0.16 mL) subcut DAILY 03/02/24 06/02/24 Rx mL) subcutaneous pen (Lantus Diabetes #15 mL Solostar U-100 Insulin) meloxicam 7.5 mg tablet 7.5 mg PO DAILY PRN Low back pain 05/15/24 06/02/24 Rx #30 tabs methocarbamol 500 mg tablet 500 mg PO TID PRN muscle spasm #30 05/31/24 06/02/24 Rx tabs tramadol 50 mg tablet 50 mg PO BID PRN pain #30 tabs 06/02/24 06/02/24 Rx Past Med/Surg History Problem List (Updated 06/02/24 @ 22:22 by Chcio Calderón MD) 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 (Acute) Lung mass (Acute) Closed T3 fracture (Acute) Hypercalcemia (Acute) Sciatica of left side associated with disorder of lumbar spine Gait disturbance Serum calcium elevated Decreased hearing of both ears Postmenopausal state Bilateral leg cramps Health care maintenance Diabetes mellitus type 1, controlled (Chronic) Dyslipidemia (Chronic) Hx of papillary thyroid carcinoma (Acute) Hypertension (Chronic) Hypothyroidism, postablative (Chronic) Osteopenia (Acute) Sensorineural hearing loss (Acute) Vitamin D deficiency (Acute) Medical History Proteinuria Surgical History H/O eye surgery H/O total thyroidectomy Family History Daughter Thyroid cancer Mother Thyroid cancer Diabetes Other Thyroid disorder Denies family history of Ovarian cancer Prostate cancer Myocardial infarction Breast cancer Colorectal cancer Social History Smoking Status: Never smoker Second Hand Exposure: No; Do You Dip or Chew Tobacco: No; Hx Alcohol Use: No Hx Substance Use: No Preferred Language: Syriac Communication Ability: Effective Visual Impairment: No Limitations Hearing Ability: Use of Hearing Aid [employer] Education Teacher Required: No Beliefs That Will Affect Care: None marital status: Current Living Situation: Spouse Current Living Situation Comment: States handicapped current occupational status: retired current occupation: homemaker Other Information That Helps Us Care for You: No Feels Safe at Home: Yes Safety Concerns: Feels Safe At This Time Childhood Exposure to Second-Hand Smoke: No Dental Care, Regularly: Yes Physical Activity Frequency: 3-4 Times per Week Seatbelt Use: always Sunscreen Use: Yes Assistive Devices: Walker Review of Systems Review of Systems: All systems reviewed & are unremarkable except as noted in HPI & below Physical Exam Constitutional: well developed, + cachectic and + malnourished; no acute distress Eyes: PERRL, conjunctivae normal, anicteric sclerae ENMT: external ear and nose normal, oropharynx normal Respiratory: normal respiratory effort, lungs clear to auscultation Cardiovascular: RRR, no murmur, no edema Gastrointestinal (Abdomen): normal bowel sounds, soft, nontender, no hepatosplenomegaly Musculoskeletal: no cyanosis or clubbing, extremities motor strength 5/5 Skin: no rashes, warm and dry Neurologic: moves all extremities and awake; not confused Psychiatric: A+Ox3, euthymic affect Results & Data Results & Data Vital Signs (Past 12 Hours) Vital Signs Temp Pulse Pulse Resp BP BP Pulse Ox 06/02/24 21:30 82 18 159/91 H 97 06/02/24 18:05 96 H 06/02/24 17:46 36.8 C 104 H 18 158/90 H 97 O2 Del Method 06/02/24 21:30 Room Air 06/02/24 18:05 06/02/24 17:46 Room Air Laboratory Results Abnormal lab results 06/02/24 06/02/24 06/02/24 Range/Units 20:04 22:43 Unknown WBC 12.21 H (4.8-10.8) K/ul Plt Count 479 H (130-400) K/uL Neut # (Auto) 9.94 H (1.40-6.50) K/uL [place] # (Auto) 0.89 H (0.11-0.59) K/uL POC Glucose 166 H (70-99) mg/dl PTH Intact < 1.0 L (12.0-88.0) pg/ml Diagnostic Findings XR thoracic spine 3V routine CLINICAL HISTORY: M54.6 - Pain in thoracic spine COMPARISON STUDY: No previous studies for comparison. FINDINGS: There is a 4 cm mass-like left lower lobe opacity. Alignment of the t horacic spine is anatomic. An upper thoracic spine fracture, possibly T3, is present. There is 70% loss of vertebral body height. There may be underlying bony erosion. No additional thoracic spine fractures are present. Mild multilevel endplate osteophytosis is present. There are surgical clips within the neck. IMPRESSION: 1. 4 cm mass-like left lower lobe opacity. This is worrisome for a lung n eoplasm. CT of the chest is recommended for further evaluation. 2. Upper thoracic spine fracture, possibly T3, as described above. 70% loss of vertebral body height with possible underlying erosion. A pathologic fracture cannot be excluded. This can be assessed on the chest CT. Medications Administered ER Medications Given: Normal saline 500ml bolus Acetaminophen 1000mg IV ECG Rate (beats per minute): 89 Rhythm: normal sinus Findings: no acute ischemic change Comparison ECG Date: no prior available Code Status & VTE Plan Code Status Full VTE Prophylaxis Plan VTE Prophylaxis will be ordered: Yes PG Care Time/CCT Total # of Minutes Spent Total Time Spent with Patient: Total time spent is greater than 50% in coordination of care (as documented) at patient's floor/unit and/or counseling patient: Coding Level of Care Code 50547 INT INP/OBS CARE 3/75MIN Diagnoses Hypercalcemia E83.52 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 C79.51; C80.1 Lung mass R91.8 Diabetes mellitus type 1, controlled E10.9 Hypothyroidism, postablative E89.0
[2024-06-02] MEDS ORDERED: GLUCOSE 10 TAB/TUBE PO PRN (22:39)
[2024-06-02] MEDS ORDERED: traMADol HCL 50 MG TABLET PO PRN (22:39)
[2024-06-02] MEDS ORDERED: DEXTROSE 50% 50 ML SYRINGE IV PRN (22:39)
[2024-06-02] MEDS ORDERED: GLUCAGON FOR INJ 1 MG VIAL SQ PRN (22:39)
[2024-06-02] MEDS ORDERED: GLUCOSE 40% GEL 15 GM TUBE PO PRN (22:39)
[2024-06-02] MEDS ORDERED: PHARMACY GLYCEMIC MGMT CONSULT PRN (22:39)
[2024-06-02] MEDS: LANTUS PER UNIT CHARGE SQ ONE (23:40)
[2024-06-02] MEDS: ENOXAPARIN INJ 40 MG/0.4 ML SYR SQ SCH (23:41)
[2024-06-02] MEDS: INSULIN ASPART PER UNIT CHARGE SC SCH (23:41)
[2024-06-02] MEDS: traMADol HCL 50 MG TABLET PO PRN (23:42)
--- NOTE | 2024-06-03 00:31 | CT Scan Report ---
Exam(s): CT ABDOMEN + PELVIS With Contrast IV Amt: 91ml optiray 320 EXAM: CT Abdomen and Pelvis With Intravenous Contrast CLINICAL HISTORY: Reason for exam: low back pain, left lung mass, ?cancer. TECHNIQUE: Axial computed tomography images of the abdomen and pelvis with intravenous contrast. CTDI is 6.97 mGy and DLP is 326.02 mGy-cm. Automated exposure control was utilized for the study. A dose lowering technique was utilized adhering to the principles of ALARA. CONTRAST: Patient received 91ml optiray 320 of IV contrast COMPARISON: No relevant prior studies available. FINDINGS: ABDOMEN: Liver: A few hepatic lesions largest measuring 1.5 cm within segment 2/3 and 1.5 cm in segment 7. Gallbladder and bile ducts: Cholecystectomy. Pancreas: Unremarkable. Spleen: Calcified granulomas in the spleen. Adrenals: See below. Kidneys and ureters: Areas of decreased enhancement within the left renal cortex potentially representing pyelonephritis. Fat-containing mass between the superior pole of the left kidney in the left adrenal gland measuring 4.4 x 3.4 cm. Stomach and bowel: Large colonic stool burden consistent with constipation. No obstruction. PELVIS: Appendix: No findings to suggest acute appendicitis. Bladder: Unremarkable. Reproductive: Unremarkable as visualized. ABDOMEN and PELVIS: Intraperitoneal space: Unremarkable. No free air. No significant fluid collection. Bones/joints: Extensive osseous metastatic disease within the pelvis. Lesion in the posterior left iliac spine measuring 7.3 x 3 cm and lesion within left iliac bone measuring 3.5 x 2.9 cm with a pathologic fracture. Lesion within S1 measuring 5.7 x 2.6 cm. Pathologic fracture of the S1 vertebral body. Multiple lesions in the spine largest within T12 measuring up to 3 cm. Soft tissues: Unremarkable. Vasculature: Unremarkable. Lymph nodes: Unremarkable. IMPRESSION: 1. Osseous metastatic disease within the spine and pelvis. Pathologic fractures involving the left iliac bone and S1 vertebral body. 2. A few lesions in the liver suspicious for metastatic disease. 3. Areas of decreased enhancement within the left renal cortex potentially representing pyelonephritis. Correlate clinically. 4. Fat-containing mass between the superior pole of the left kidney in the left adrenal gland measuring 4.4 x 3.4 cm. 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 5. Large colonic stool burden consistent with constipation. No obstruction. Electronically signed by: Robert Long MD 06/03/24:31 AM
--- NOTE | 2024-06-03 00:40 | CT Scan Report ---
Exam(s): CT L SPINE With Contrast IV Amt: optiray 320 91ml EXAM: CT Lumbar Spine With Intravenous Contrast CLINICAL HISTORY: Reason for exam: lower back pain, left sciatica, left lung mass. TECHNIQUE: Axial computed tomography images of the lumbar spine with intravenous contrast. CTDI is 6.97 mGy and DLP is 326.02 mGy-cm. Automated exposure control was utilized for the study. A dose lowering technique was utilized adhering to the principles of ALARA. CONTRAST: Patient received optiray 320 91ml of IV contrast COMPARISON: No relevant prior studies available. FINDINGS: Lytic lesions within T11, T12, S1, left sacral ala, left posterior iliac spine. Minimal pathologic height loss of the T12 superior endplate. No posterior cortical buckling. Pathologic fracture of S1 extending into the right sacral ala. Pathologic fracture of the left posterior iliac wing. Multilevel degenerative disc disease most pronounced at L2-3 and L3-4. No significant spinal canal stenosis. Scattered multilevel bilateral mild to moderate foraminal stenosis. IMPRESSION: Multiple lytic metastatic lesions as described with pathologic fractures of the T12 superior endplate, S1 superior endplate, right sacral ala, and left posterior iliac wing. No spinal canal stenosis. Electronically signed by: Robert Long MD 06/03/24 00:39 AM
--- NOTE | 2024-06-03 00:57 | CT Scan Report ---
Exam(s): CT CHEST With Contrast IV Amt: 91ml optiray 320 EXAM: CT Chest With Intravenous Contrast CLINICAL HISTORY: Reason for exam: left lung mass, T3 fx, ? cancer. TECHNIQUE: Axial computed tomography images of the chest with intravenous contrast. CTDI is 7.8 mGy and DLP is 232.49 mGy-cm. Automated exposure control was utilized for the study. A dose lowering technique was utilized adhering to the principles of ALARA. CONTRAST: Patient received 91ml optiray 320 of IV contrast COMPARISON: No relevant prior studies available. FINDINGS: Lungs: Mass in the medial right lower lobe measuring 4.2 x 8.0 x 4.4 cm. Mass in the left lower lobe measuring 3.7 x 3.1 x 4.6 cm. A few additional scattered pulmonary nodules. One shows cavitation measuring 1. 1 cm within the right middle lobe. The medial right lower lobe mass encases and obstructs bronchi resulting in complete collapse of the right lower lobe. Pleural space: No pleural effusion or pneumothorax. Heart: RV to LV ratio is less than 1. No heart strain. Bones/joints: Pathologic burst fracture T3. Severe spinal canal stenosis. Severe bilateral foraminal stenosis at T2-3 and T3-4. Additional lytic lesions within T10 and T11. Partially imaged T12 lytic lesion described on the CT abdomen pelvis. Soft tissues: Unremarkable. Vasculature: Tumor thrombus within the right lower lobe. No bland thrombus identified. Lymph nodes: Unremarkable. IMPRESSION: 1. Mass in the medial right lower lobe measuring 4.2 x 8.0 x 4.4 cm. Right lower lobe collapse and tumor thrombus in the right lower lobe from this mass. No bland thrombus or heart strain. 2. Mass in the left lower lobe measuring 3.7 x 3.1 x 4.6 cm. 3. A few additional scattered pulmonary nodules. One shows cavitation measuring 1.1 cm within the right middle lobe. 4. Pathologic burst fracture T3. Severe spinal canal stenosis. Severe bilateral foraminal stenosis at T2-3 and T3-4. Electronically signed by: Robert Long MD 06/03/24 00:56 AM
[2024-06-03] MEDS: ACETAMINOPHEN 500 MG TAB PO SCH (01:58)
[2024-06-03] MEDS: MoRPHine SULFATE 2 MG/ML CARP IV PRN (01:59)
[2024-06-03] MEDS: LEVOTHYROXINE SODIUM 88 MCG TABLET PO SCH (05:52)
[2024-06-03 06:16] LABS: Basophils # (auto) 0.03 K/uL (0.00-0.20); Basophils % (auto) 0.4 %; Eosinophils # (auto) 0.07 K/uL (0.00-0.50); Eosinophils % (auto) 0.8 %; Hematocrit (blood only) 34.4 % (37.0-47.0); Hemoglobin 11.2 g/dl (12.0-16.0); Immature Granulocytes # (auto) 0.03 K/uL (0.01-0.20); Immature Granulocytes % (auto) 0.4 %; Lymphocytes # (auto) 1.53 K/uL (1.20-3.40); Lymphocytes % (auto) 18.5 %; Mean Corpuscular Hemoglobin 30.8 pg (25.0-34.0); Mean Corpuscular Hgb Conc 32.6 g/dL (32.0-36.0); Mean Corpuscular Volume 94.5 fL (80.0-100.0); Monocytes % (auto) 9.7 %; Neutrophils # (auto) 5.81 K/uL (1.40-6.50); Neutrophils % (auto) 70.2 %; Platelet Count 346 K/uL (130-400); RDW Coefficient of Variation 11.9 % (11.5-14.5); RDW Standard Deviation 41.3 fL (36.4-46.3); Red Blood Count 3.64 M/uL (4.20-5.40); White Blood Count 8.27 K/ul (4.8-10.8)
[2024-06-03 06:38] LABS: Albumin Globulin Ratio 1.5 (0.9-2); Albumin Level 3.5 gm/dl (3.4-5.0); BUN Creatinine Ratio 24.1 (10-20); Bilirubin,Total 0.4 mg/dl (0.2-1.0); Calcium 11.1 mg/dl (8.6-10.3); Creatinine Clr Calc Pharmacy 68.6 ml/min; Globulin 2.4 gm/dl (2.5-4.0); Total Protein 5.9 gm/dl (6.0-8.3)
[2024-06-03] MEDS: INSULIN ASPART PER UNIT CHARGE SC SCH (07:56)
[2024-06-03] MEDS ORDERED: INFLUENZA VACC TS2024-25(65y+)/PF (IIV3) 0.5mL Syr IM ONE (08:00)
[2024-06-03] MEDS ORDERED: ONDANSETRON 4 MG OD TAB PO PRN (08:38)
--- NOTE | 2024-06-03 09:23 | Pharmacy Report ---
Pharmacy Glycemic Short Note 2 - Date of Service June 03, 2024 - Glycemic Short BSG Results (Last 24 hours): 06/02/24 06/03/24 06/03/24 22:43 05:46 07:29 Glucose 105 H POC Glucose 166 H 84 OUTPATIENT ANTIDIABETIC REGIMEN: * Lantus 16 units SQ HS * NovoLog 4 units with breakfast and lunch, 7 units with dinner (patient rarely using prior to admission due to decreased PO intake) * A1c 7.6% 03/2024 ASSESSMENT: * 74 yo F, presented because of abnormal labs, significant hypercalcemia with a calcium of 12.4, also concerns for T3 fracture. Patient was found to have a lung mass, CT imaging, multiple bony lesions noted as well as lung masses. Concerning for carcinoma with bony metastases. * Type 1 diabetic on 31 units of insulin per day, 8 units of basal given last night, euglycemic this morning, will continue this dose at this time while inpatient and NovoLog CF/CR. PLAN FOR INPATIENT GLYCEMIC CONTROL: * Basal insulin * Lantus 8 units SQ HS * Bolus insulin * NovoLog per scale ACHS or Q6hrs while NPO * Goal Range: Low 120 mg/dL - High 150 mg/dL for type 1 DM while inpatient * Correction Factor: 45 mg/dL/unit * Nutritional / Prandial insulin per carb ratio of 1 unit per 15 grams CHO consumed
[2024-06-03] MEDS: ONDANSETRON ORAL SOLN 0.8 MG/1 ML PO PRN (10:25)
[2024-06-03] MEDS: lisinopril 5 MG TAB PO SCH (10:25)
[2024-06-03] MEDS: ASPIRIN 81 MG ECTAB PO SCH (10:25)
--- NOTE | 2024-06-03 15:36 | Hospitalist Progress Note ---
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 Mass in the medial right lower lobe measuring 4.2 x 8.0 x 4.4 cm. Right lower lobe collapse and tumor thrombus in the right lower lobe from this mass. No bland thrombus or heart strain. 2. Mass in the left lower lobe measuring 3.7 x 3.1 x 4.6 cm. 3. A few additional scattered pulmonary nodules. One shows cavitation measuring 1.1 cm within the right middle lobe. 4. Pathologic burst fracture T3. Severe spinal canal stenosis. Severe bilateral foraminal stenosis at T2-3 and T3-4. - PTHrp pending, patient without respiratory symptoms - consulted oncology for further recs - Consulted pulmonology (4) Diabetes mellitus type 1, controlled: Plan: Hemoglobin A1C 7.6 in March, no need to repeat Continue Lantus 16 units HS Novolog: --Goal BSG Range: Low 110 mg/dL, High 140 mg/dL --Correction Factor: 45 mg/dL/unit --Carbohydrate ratio = 15 g/unit --BSGs ACHS if eating, q6h if npo Due to T1DM will consult pharmacy for ongoing glycemic control (5) Hypothyroidism, postablative: Plan: TSH with AM labs Continue levothyroxine 88 mcg PO daily (6) Metastatic malignant neoplasm of unknown primary site: Plan: CT AP: 1. Osseous metastatic disease within the spine and pelvis. Pathologic fractures involving the left iliac bone and S1 vertebral body. 2. A few lesions in the liver suspicious for metastatic disease. 3. Areas of decreased enhancement within the left renal cortex potentially representing pyelonephritis. Correlate clinically. 4. Fat-containing mass between the superior pole of the left kidney in the left adrenal gland measuring 4.4 x 3.4 cm. 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 5. Large colonic stool burden consistent with constipation. No obstruction. - Will need IR guided biopsy of liver lesions outpatient (7) Hyponatremia: Plan: - Most recent level 130 - Possibly dilutional from fluids - Can supplement if levels remain low Plan HTN - continue lisinopril VTE Prophylaxis - Lovenox 40mg SQ HS Diet - T1DM Disposition - admit to med/surg Admission and Anticipated Discharge Date Admission Date: June 02, 2024 Supervising Physician Co-Signing Physician Notes Attending attestation Pt seen and examined in concert with Dr. Becerra. In agreement with the documented findings as noted in the resident documentation with any exceptions or additions as noted here. 2 months of ongoing right paraspinal/scapular pain which improves with position and splinting, worsens with direct pressure, though not significantly. Lower back pain has been stable and is well controlled on current medication. On examination, S1/S2 nl RRR no MCG. CTAB. Abd NT/ND BS+ve Metastatic neoplasia of unknown etiology, h/o thyroid cancer remotely s/p excision - patient & family aware of lab studies, current point of contact Yanni (daughter) for relay of information to family. Oncology consult to establish care Hypercalcemia of malignancy - repeat labs calcium, ionized calcium in PM for trend with hydration in the setting of asymptomatic patient. PTHrP pending, vit D WNL Bone lesion with compression fx, subacute - pain well controlled on present regimen, consider further intervention based on response today. Else see resident documentation as noted. Total attending physician time spent with this patient's care including coordination of care and family meetin minutes. Subjective Today patient was seen resting comfortably at bedside. She complains of significant back pain, R. shoulder pain, R. leg and ankle pain. The most severe pain is located in the upper back and shoulder. Patient denies fevers, chills, chest pain, palpitations, tightness, vomiting, abdominal pain, SOB, cough or wheeze. A conversation was had with the patient and family about her imaging results and possibilities about further care. Likely after the patient is medically stable and has been seen by oncology she can f/u for further work-up regarding the masses found on imaging for potential biopsy, labs, and imaging. Patient is amenable to this, and understands that further work-up is needed before a definitive plan for treatment of her neoplasm can be completed. Physical Exam Physical Exam: General: patient resting comfortably, NAD, non-toxic in appearance, answers questions appropriately. Skin: warm, dry, intact HEENT: NC/AT, anicteric sclera, conjunctiva without injection, moist mucus membranes. Heart: +S1/S2, regular, no m/r/g Lungs: equal air entry bilaterally, no rales/rhonchi/wheezes Abd: +BS, soft, NT/ND Ext: warm, no clubbing/cyanosis or edema, Zahra's neg. Neuro: nonfocal, speech intact, no facial droop, moving all extremities. Results & Data Results & Data Vital Signs (Past 12 Hours) Vital Signs Temp Pulse Resp BP Pulse Ox O2 Del Method 06/03/24 14:43 36.5 C 77 16 136/68 96 Room Air 06/03/24 07:56 36.4 C L 74 18 134/88 97 Room Air 06/03/24 07:40 Room Air
[2024-06-03 18:58] LABS: Albumin Globulin Ratio 1.3 (0.9-2); Albumin Level 3.5 gm/dl (3.4-5.0); BUN Creatinine Ratio 24.5 (10-20); Bilirubin,Total 0.3 mg/dl (0.2-1.0); Calcium 10.3 mg/dl (8.6-10.3); Creatinine Clr Calc Pharmacy 75.1 ml/min; Globulin 2.6 gm/dl (2.5-4.0); Potassium 4.2 mmol/L (3.5-5.1); Total Protein 6.1 gm/dl (6.0-8.3)
--- NOTE | 2024-06-03 19:19 | Electrocardiogram Report ---
Test Reason : Blood Pressure : */* mmHG Vent. Rate : 89 BPM Atrial Rate : 89 BPM P-R Int : 168 ms QRS Dur : 74 ms QT Int : 328 ms P-R-T Axes : 50 -29 68 degrees QTcB Int : 399 ms Sinus rhythm with Premature atrial complexes Possible Left atrial enlargement Left ventricular hypertrophy ( R in aVL , [place] product ) Cannot rule out Septal infarct , age undetermined Abnormal ECG No previous ECGs available Confirmed by Hillary Herorn (Courtney) on 06/03/2024 7:18:47 PM Referred By: Confirmed By: Hillary Herron
[2024-06-03] MEDS: LANTUS PER UNIT CHARGE SQ SCH (20:38)
[2024-06-04] MEDS: CARBOHYDRATES FOR HYPOGLYCEMIA PO PRN (01:28)
[2024-06-04 05:28] LABS: Hematocrit (blood only) 32.5 % (37.0-47.0); Hemoglobin 10.6 g/dl (12.0-16.0); Mean Corpuscular Hemoglobin 30.9 pg (25.0-34.0); Mean Corpuscular Hgb Conc 32.6 g/dL (32.0-36.0); Mean Corpuscular Volume 94.8 fL (80.0-100.0); Mean Platelet Volume 9.8 fL (9.4-12.4); Platelet Count 318 K/uL (130-400); RDW Coefficient of Variation 11.9 % (11.5-14.5); RDW Standard Deviation 41.4 fL (36.4-46.3); Red Blood Count 3.43 M/uL (4.20-5.40); White Blood Count 8.98 K/ul (4.8-10.8)
[2024-06-04 05:47] LABS: Albumin Globulin Ratio 1.4 (0.9-2); Albumin Level 3.3 gm/dl (3.4-5.0); BUN Creatinine Ratio 22.9 (10-20); Bilirubin,Total 0.2 mg/dl (0.2-1.0); Calcium 10.7 mg/dl (8.6-10.3); Creatinine Clr Calc Pharmacy 82.9 ml/min; Globulin 2.3 gm/dl (2.5-4.0); Potassium 4.8 mmol/L (3.5-5.1); Total Protein 5.6 gm/dl (6.0-8.3)
--- NOTE | 2024-06-04 08:11 | Hospitalist Progress Note ---
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 Mass in the medial right lower lobe measuring 4.2 x 8.0 x 4.4 cm. Right lower lobe collapse and tumor thrombus in the right lower lobe from this mass. No bland thrombus or heart strain. 2. Mass in the left lower lobe measuring 3.7 x 3.1 x 4.6 cm. 3. A few additional scattered pulmonary nodules. One shows cavitation measuring 1.1 cm within the right middle lobe. 4. Pathologic burst fracture T3. Severe spinal canal stenosis. Severe bilateral foraminal stenosis at T2-3 and T3-4. - PTHrp pending, patient without respiratory symptoms - consulted oncology for further recs (4) Diabetes mellitus type 1, controlled: Plan: Hemoglobin A1C 7.6 in March, no need to repeat Continue Lantus 16 units HS Novolog: --Goal BSG Range: Low 110 mg/dL, High 140 mg/dL --Correction Factor: 45 mg/dL/unit --Carbohydrate ratio = 15 g/unit --BSGs ACHS if eating, q6h if npo Due to T1DM will consult pharmacy for ongoing glycemic control (5) Hypothyroidism, postablative: Plan: TSH with AM labs Continue levothyroxine 88 mcg PO daily (6) Metastatic malignant neoplasm of unknown primary site: Plan: CT AP: 1. Osseous metastatic disease within the spine and pelvis. Pathologic fractures involving the left iliac bone and S1 vertebral body. 2. A few lesions in the liver suspicious for metastatic disease. 3. Areas of decreased enhancement within the left renal cortex potentially representing pyelonephritis. Correlate clinically. 4. Fat-containing mass between the superior pole of the left kidney in the left adrenal gland measuring 4.4 x 3.4 cm. 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 5. Large colonic stool burden consistent with constipation. No obstruction. (7) Hyponatremia: Plan: - Most recent level 130 - Possibly dilutional from fluids - Can supplement if levels remain low Plan HTN - continue lisinopril VTE Prophylaxis - Lovenox 40mg SQ HS Diet - T1DM Disposition - admit to med/surg Admission and Anticipated Discharge Date Admission Date: June 02, 2024 Supervising Physician Co-Signing Physician Notes Attending attestation Pt seen and examined in concert with Dr. Becerra. In agreement with the documented findings as noted in the resident documentation with any exceptions or additions as noted here. Waxing and waning upper back pain with local radiation which responds well to pain medication but with PRN needs required. Mild somnolence related to medications. Hypoglycemic episodes overnight, reports similar episodes recently at home because of decreased appetite to the point of intermittently discontinuing insulin therapy. Reviewed yesterdays information with patient and daughter Usha re: neoplasia, likely cancer, resulting in erosion of bone and blood vessels of unknown etiology in the setting of previous thyroid cancer requiring management of electrolytes and further evaluation. Patient agreeable to further evaluation after consideration of information (grandchildren twins coming in November with a 14 month old grandson as an older brother that she sits for) and Usha is aware and also agreeable, will be in today at 12p or so. On examination, S1/S2 nl RRR no MCG. CTAB. Abd NT/ND BS+ve Metastatic neoplasia of unknown etiology, h/o thyroid cancer remotely s/p excision - patient & family aware of lab studies, current point of contact Yanni (daughter) for relay of information to family. Oncology consult to establish care Concern for tumor thrombus of the RLL - pulmonology consult - pulmonology with diminished concern, will monitor for changes and continue prophylactic enoxaparin, discuss w/ pulmonology and likely escalate to heparin drip v. DOAC. Hypercalcemia of malignancy - following completion of IV fluid, re-escalation of calcium level. repeat labs calcium, ionized calcium in PM. Continue to trend daily. PTHrP pending, vit D WNL. Start solumedrol today pending further oncologic recommendations Bone lesion with compression fx, subacute - adjust tramadol PRN to oxycodone 5mg q6 scheduled for now and consider adjustment. Else see resident documentation as noted. Total attending physician time spent with this patient's care including coordination of care and family meetin minutes. Subjective Patient seen and examined at bedside. No acute distress, notable symptoms overnight She denied any issues with her breathing No chest pain No headache, no blurry vision She was asking if she is going to have biopsy done today. Physical Exam Physical Exam: General: patient resting comfortably, NAD, non-toxic in appearance, answers questions appropriately. Skin: warm, dry, intact HEENT: NC/AT, anicteric sclera, conjunctiva without injection, moist mucus membranes. Heart: +S1/S2, regular, no m/r/g Lungs: equal air entry bilaterally, no rales/rhonchi/wheezes Abd: +BS, soft, NT/ND Ext: warm, no clubbing/cyanosis or edema, Zahra's neg. Neuro: nonfocal, speech intact, no facial droop, moving all extremities. Results & Data Results & Data Vital Signs (Past 12 Hours) Vital Signs Temp Pulse Resp BP Pulse Ox O2 Del Method 06/04/24 07:20 Room Air 06/04/24 07:12 36.4 C L 82 16 144/81 H 94 Room Air
[2024-06-04] MEDS: SODIUM CHLORIDE 0.9% 1,000 ML IV SCH ×2 (08:35→11:36)
[2024-06-04] MEDS: oxyCODONE HCL IR 5 MG TAB (IMMEDIATE RELEASE) PO SCH (09:12)
--- NOTE | 2024-06-04 09:28 | Pharmacy Report ---
Pharmacy Glycemic Short Note 2 - Date of Service June 04, 2024 - Glycemic Short BSG Results (Last 24 hours): 06/03/24 06/03/24 06/03/24 11:43 17:05 18:20 Glucose 228 H POC Glucose 159 H 149 H 06/03/24 06/03/24 06/04/24 20:02 20:33 01:01 EST Glucose POC Glucose 234 H 246 H 49 L* 06/04/24 06/04/24 06/04/24 01:24 EST 01:40 EST 01:45 EST Glucose POC Glucose 58 L* 92 132 H 06/04/24 06/04/24 06/04/24 05:08 07:29 07:29 Glucose 67 L POC Glucose 65 L* 64 L* 06/04/24 07:54 Glucose POC Glucose 117 H OUTPATIENT ANTIDIABETIC REGIMEN: * Lantus 16 units SQ HS * NovoLog 4 units with breakfast and lunch, 7 units with dinner (patient rarely using prior to admission due to decreased PO intake) * A1c 7.6% 03/2024 ASSESSMENT: 06/04 * Blood sugars pretty well controlled yesterday with 8 units of Lantus (half of home dose) 06/02 evening, and no NovoLog needed as PO intake was minimal, blood sugar did rise to 246mg/dl last night, pt received 3 units correctional insulin and 8 units of Lantus again, resulting in hypoglycemia this morning, asymptomatic. * Will further reduce basal by 25%, and change goal range, and loosen NovoLog parameters to prevent hypoglycemia. * Today patient started on ATC oxycodone, and IV Solu-Medrol, which complicates glycemic control. Will continue with the adjustments above and consider titrating back up if patient becomes hyperglycemic. 06/03 * 74 yo F, presented because of abnormal labs, significant hypercalcemia with a calcium of 12.4, also concerns for T3 fracture. Patient was found to have a lung mass, CT imaging, multiple bony lesions noted as well as lung masses. Concerning for carcinoma with bony metastases. * Type 1 diabetic on 31 units of insulin per day, 8 units of basal given last night, euglycemic this morning, will continue this dose at this time while inpatient and NovoLog CF/CR. PLAN FOR INPATIENT GLYCEMIC CONTROL: * Basal insulin * Lantus 6 units SQ HS * Bolus insulin * NovoLog per scale ACHS or Q6hrs while NPO * Goal Range: Low 120 mg/dL - High 180 mg/dL * Correction Factor: 50 mg/dL/unit * Nutritional / Prandial insulin per carb ratio of 1 unit per 20 grams CHO consumed
--- NOTE | 2024-06-04 09:49 | Pulmonary Consultation ---
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 Recommendations: 1. Patient needs tissue diagnosis. Reviewed the CT of the chest. Would recommend proceeding with a CT of the abdomen pelvis and if there are liver lesions identified, would recommend proceeding with IR guided biopsy of the liver which would provide diagnostic as well as staging information. If there are no lesions identified, consideration for bronchoscopy might be appropriate at that time if another site for biopsy is not available. 2. There is no "tumor thrombus" identified on the CT scan. This usually implie s invasion of the tumor into blood vessels. I do not see this finding. The airways are compressed likely extrinsically. There is no indication for anticoagulation from a pulmonary standpoint other than routine DVT prophylaxis. 3. Hypercalcemia: Patient remains hypercalcemic. Will start normal saline at 125 cc an hour and give Lasix. In addition we will start the patient on calcitonin and give a dose of pamidronate. Recommend correlation with medical oncology 4. Spine fracture: Questionably unstable. Recommend radiation oncology consultation for pain management. Given the canal stenosis, would recommend orthospine evaluation to see if this is an unstable pathologic spine fracture and requires stabilization. Defer to them as to whether or not MRI is indicated Thanks for the opportunity persist pending the care of this patient. Will follow-up with you with results of imaging. Feel free to contact us with questions or concerns History of Present Illness Attending Physician: Alo Ramirez MD History of Present Illness Asked by hospitalist to assist in evaluation management as patient with an abnormal CT scan. History is obtained from discussion with the patient as well as review electronic medical record. Patient is a 74-year-old female lifelong non-smoker who gets mammograms and colon cancer screening regularly who was referred to the emergency room due to finding of hypercalcemia in the outpatient setting. She was seen by her primary care provider 2 days ago with significant flank pain as well as back hip ankle and shoulder pain. She has not had any arthralgias. She had a chest x-ray performed demonstrating an abnormality and CT scan was performed. She was given tramadol. Her labs were abnormal showing hypercalcemia and she was sent to the emergency room. Findings showed multiple pulmonary masses in the lower lobes and labs confirmed anemia as well as hyponatremia and hypercalcemia. PTH was suppressed to undetectable. Pulmonary was consulted for additional management. The patient denies any prior history of malignancy or lung cancer. No family history of lung cancer that she is aware of. She is having significant pain. Allergies Allergy/AdvReac Type Severity Reaction Status Date / Time tetanus immune globulin Allergy Severe TETANUS Verified 06/02/24 09:00 VACCINE-HIVES aspartame AdvReac Severe MIGRAINE Verified 06/02/24 23:03 W/ [employer] Home Medications Medication Instructions Recorded Confirmed Type cyanocobalamin (vitamin B-12) 500 PO .TAKE 1 TABLET DAILY. #90 tabs 01/19/19 06/02/24 History mcg tablet lancets (OneTouch UltraSoft #50 ea 12/06/19 06/02/24 History Lancets) aspirin 81 mg tablet,delayed 81 mg PO DAILY 01/23/20 06/02/24 History release cholecalciferol (vitamin D3) 25 1,000 units PO DAILY #30 caps 02/06/20 06/02/24 Rx mcg (1,000 unit) capsule blood sugar diagnostic (OneTouch #200 ea 06/11/20 06/02/24 Rx Ultra Blue Test Strip) lancets 33 gauge (OneTouch Delica #200 ea 06/11/20 06/02/24 Rx Lancets) Novolog FlexPen U-100 Insulin 100 15 unit (0.15 mL) subcut DAILY #15 02/01/23 06/02/24 Rx unit/mL (3 mL) subcutaneous mL (insulin aspart U-100) BD Ultra-Fine Jany Pen Needle 32 #400 ea 07/08/23 06/02/24 Rx gauge x 5/32" (pen needle, diabetic) levothyroxine 88 mcg tablet 88 mcg PO DAILY #90 tabs 09/20/23 06/02/24 Rx lisinopril 5 mg tablet 5 mg PO DAILY #90 tabs 01/25/24 06/02/24 Rx simvastatin 40 mg tablet 40 mg PO DAILY #90 tabs 01/25/24 06/02/24 Rx insulin glargine 100 unit/mL (3 16 unit (0.16 mL) subcut DAILY 08/01/24 11/01/24 Rx mL) subcutaneous pen (Lantus Diabetes #15 mL Solostar U-100 Insulin) meloxicam 7.5 mg tablet 7.5 mg PO DAILY PRN Low back pain 05/15/24 06/02/24 Rx #30 tabs methocarbamol 500 mg tablet 500 mg PO TID PRN muscle spasm #30 05/31/24 06/02/24 Rx tabs tramadol 50 mg tablet 50 mg PO BID PRN pain #30 tabs 06/02/24 06/02/24 Rx Patient History Medical History Proteinuria Surgical History H/O eye surgery H/O total thyroidectomy Family History Daughter Thyroid cancer Mother Thyroid cancer Diabetes Other Thyroid disorder Denies family history of Ovarian cancer Prostate cancer Myocardial infarction Breast cancer Colorectal cancer Social History Smoking Status: Never smoker Second Hand Exposure: No; Do You Dip or Chew Tobacco: No; Hx Alcohol Use: No Hx Substance Use: No Preferred Language: Chinese Communication Ability: Effective Visual Impairment: No Limitations Hearing Ability: Use of Hearing Aid Edge Burnisher Uppers Required: No Beliefs That Will Affect Care: None marital status: Current Living Situation: Spouse Current Living Situation Comment: States handicapped current occupational status: retired current occupation: homemaker Other Information That Helps Us Care for You: No Feels Safe at Home: Yes Safety Concerns: Feels Safe At This Time Childhood Exposure to Second-Hand Smoke: No Dental Care, Regularly: Yes Physical Activity Frequency: 3-4 Times per Week Seatbelt Use: always Sunscreen Use: Yes Assistive Devices: Walker Review of Systems Review of Systems: Please refer to admission H&P Physical Exam Constitutional: well developed, + cachectic and + malnourished; no acute distress Eyes: PERRL, conjunctivae normal, anicteric sclerae ENMT: external ear and nose normal, oropharynx normal Respiratory: normal respiratory effort, lungs clear to auscultation Cardiovascular: RRR, no murmur, no edema Gastrointestinal (Abdomen): normal bowel sounds, soft, nontender, no hepatosplenomegaly Musculoskeletal: no cyanosis or clubbing, extremities motor strength 5/5 Skin: no rashes, warm and dry Neurologic: moves all extremities and awake; not confused Psychiatric: A+Ox3, euthymic affect Results & Data Results & Data Vital Signs (Past 12 Hours) Vital Signs Temp Pulse Resp BP Pulse Ox O2 Del Method 06/04/24 07:20 Room Air 06/04/24 07:12 36.4 C L 82 16 144/81 H 94 Room Air Diagnostic Findings CT the chest was independently reviewed. There were bilateral lower lobe masses. There is no tumor thrombus. The airways appear extrinsically compresse d. There does appear to be a questionable hepatic lesion on the lowest cut of the CT of the chest suggestive of potential hepatic disease. There is a burst fracture at T3 with bilateral foraminal stenosis at T2-3 and T3-4. Critical Care Results & Data Vital Signs (Past 12 Hours) Vital Signs Temp Pulse Resp BP Pulse Ox O2 Del Method 06/04/24 07:20 Room Air 06/04/24 07:12 36.4 C L 82 16 144/81 H 94 Room Air Lab & Micro Results (Past 24 Hours) RBC 3.43 M/uL (4.20-5.40) L 06/04/24 WBC 8.98 K/ul (4.8-10.8) 06/04/24 Hgb 10.6 g/dl (12.0-16.0) L 06/04/24 Hct 32.5 % (37.0-47.0) L 06/04/24 MCV 94.8 fL (80.0-100.0) 06/04/24 MCH 30.9 pg (25.0-34.0) 06/04/24 MCHC 32.6 g/dL (32.0-36.0) 06/04/24 RDW Standard Deviation 41.4 fL (36.4-46.3) 06/04/24 RDW Coefficient of Variation 11.9 % (11.5-14.5) 06/04/24 Plt Count 318 K/uL (130-400) 06/04/24 MPV 9.8 fL (9.4-12.4) 06/04/24 Na 130 mmol/L (136-145) L 11/03/24 K 4.8 mmol/L (3.5-5.1) 06/04/24 Cl 99 mmol/L (98-107) 06/04/24 CO2 30 mmol/L (21-32) 06/04/24 Anion Gap 1 (3-11) L 06/04/24 BUN 11 mg/dl (6-23) 06/04/24 Creatinine 0.48 mg/dl (0.6-1.2) L 06/04/24 BUN/Creatinine Ratio 22.9 (10-20) H 06/04/24 Glu 67 mg/dl (70-99(Fasting)) L 06/04/24 Ca 10.7 mg/dl (8.6-10.3) H 06/04/24 Total Bilirubin 0.2 mg/dl (0.2-1.0) 06/04/24 AST 15 U/L (13-39) 06/04/24 ALT 13 U/L (7-52) 06/04/24 Alkaline Phosphatase 138 U/L (34-104) H 06/04/24 TP 5.6 gm/dl (6.0-8.3) L 06/04/24 Albumin 3.3 gm/dl (3.4-5.0) L 06/04/24 Globulin 2.3 gm/dl (2.5-4.0) L 06/04/24 Albumin/Globulin Ratio 1.4 (0.9-2) 06/04/24 Calcium Level 10.7 mg/dl (8.6-10.3) H 06/04/24 05:08 Ionized Calcium 1.65 mmol/L (1.12-1.32) H* 06/04/24 05:08 I & O Totals 24 Hours 06/03/24 06/04/24 06/05/24 07:59 06:59 06:59 Intake Total Balance Cumulative 06/02/24 17:41 thru 06/04/24 05:58 Intake Total 4027.5 Balance 4027.5 RT Ventilator Mngmt (Last Documented) Ventilator Ordered Settings Respiratory Rate 16 06/04/24 07:12 Ventilator - PT Measurements Respiratory Rate 16 PG Care Time/CCT Total # of Minutes Spent Total Time Spent with Patient: Total time spent is greater than 50% in coordination of care (as documented) at patient's floor/unit and/or counseling patient: Coding Level of Care Code 31144 INT INP/OBS CARE Diagnoses 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 C79.51; C80.1 Lung mass R91.8 Liver lesion K76.9 Compression fracture of body of thoracic vertebra S22.000A
[2024-06-04] MEDS: methylPREDNISolone 60 MG in SYRINGE 0 ML IV SCH (10:58)
[2024-06-04] MEDS: FUROSEMIDE INJ 20 MG/2 ML VIAL IV ONE (10:59)
[2024-06-04] MEDS: CALCITONIN SALMON NA 200 IU/AC 3.7 ML BTL SCH (11:00)
[2024-06-04] MEDS: PAMIDRONATE DISODIUM 60 MG in SODIUM CHLORIDE 0.9% 1,000 ML IV SCH (11:03)
--- NOTE | 2024-06-04 12:40 | Oncology Consultation ---
Date of Consultation June 04, 2024 Assessment & Plan (1) Hypercalcemia of malignancy: or hypercalcemia of malignancy continue the patient on current regimen of IV fluids, also on calcitonin and pamidronate. Calcium is trending in the right direction. Continue monitoring calcium levels as well as toxicity associated with hypercalcemia. (2) Bone lesion: Obviously needs a tissue diagnosis, can either undergo bone biopsy or if spine surgery has been consulted for vertebral fracture that they can help us obtaining a tissue diagnosis with the plan any intervention (3) Vertebral fracture, pathological: . Would recommend evaluation with spine surgery given the severe spinal canal stenosis and pathological fracture of the vertebrae as the patient may be a candidate for vertebroplasty/kyphoplasty under intervention may be helpful in obtaining tissue diagnosis Plan thank you for this interesting oncological consult, will await tissue diagnosis for further recommendations especially regarding palliative systemic therapy. Medical oncology will continue to follow the patient make appropriate recommendations. History of Present Illness Reason for Consultation: ? Metastatic malignancy Attending Physician: Alo Ramirez MD History of Present Illness the patient is a very pleasant 74-year-old woman who presented to the [facility] because of hypercalcemia. She had been having worsening sciatic pain radiating to her left leg with occasional foot pain. She presented to [facility] emergency department where she had a CT of the abdomen pelvis which revealed osseous metastatic disease within the spine and pelvis, pathological fractures involving left iliac bone and S1 vertebral body. There were a few lesions in the liver suspicious for metastatic disease. Areas of decreased enhancement within the left renal cortex potentially representing pyelonephritis. a CT scan of the chest performed on 06/03/2024 revealed mass in the medial right lower lobe, mass in the left lower lobe, additional scattered pulmonary nodules, 1 showing cavitation measuring 1.1 cm. There was pathological burst fracture at T3, severe spinal canal stenosis. Medical oncology has been consulted to assist in management of this patient with presumed metastatic disease with osseous metastasis. She continues to be hypercalcemic with a calcium level of 10.7 mg/dL, albumin of 3.3. Allergies Allergy/AdvReac Type Severity Reaction Status Date / Time tetanus immune globulin Allergy Severe TETANUS Verified 06/02/24 09:00 VACCINE-HIVES aspartame AdvReac Severe MIGRAINE Verified 06/02/24 23:03 W/ [employer] Home Medications Medication Instructions Recorded Confirmed Type cyanocobalamin (vitamin B-12) 500 PO .TAKE 1 TABLET DAILY. #90 tabs 01/19/19 06/02/24 History mcg tablet lancets (OneTouch UltraSoft #50 ea 12/06/19 06/02/24 History Lancets) aspirin 81 mg tablet,delayed 81 mg PO DAILY 01/23/20 06/02/24 History release cholecalciferol (vitamin D3) 25 1,000 units PO DAILY #30 caps 02/06/20 06/02/24 Rx mcg (1,000 unit) capsule blood sugar diagnostic (OneTouch #200 ea 06/11/20 06/02/24 Rx Ultra Blue Test Strip) lancets 33 gauge (OneTouch Delica #200 ea 06/11/20 06/02/24 Rx Lancets) Novolog FlexPen U-100 Insulin 100 15 unit (0.15 mL) subcut DAILY #15 02/01/23 06/02/24 Rx unit/mL (3 mL) subcutaneous mL (insulin aspart U-100) BD Ultra-Fine Jany Pen Needle 32 #400 ea 07/08/23 06/02/24 Rx gauge x 5/32" (pen needle, diabetic) levothyroxine 88 mcg tablet 88 mcg PO DAILY #90 tabs 09/20/23 06/02/24 Rx lisinopril 5 mg tablet 5 mg PO DAILY #90 tabs 01/25/24 06/02/24 Rx simvastatin 40 mg tablet 40 mg PO DAILY #90 tabs 01/25/24 06/02/24 Rx insulin glargine 100 unit/mL (3 16 unit (0.16 mL) subcut DAILY 03/02/24 06/02/24 Rx mL) subcutaneous pen (Lantus Diabetes #15 mL Solostar U-100 Insulin) meloxicam 7.5 mg tablet 7.5 mg PO DAILY PRN Low back pain 05/15/24 06/02/24 Rx #30 tabs methocarbamol 500 mg tablet 500 mg PO TID PRN muscle spasm #30 05/31/24 06/02/24 Rx tabs tramadol 50 mg tablet 50 mg PO BID PRN pain #30 tabs 06/02/24 06/02/24 Rx Patient History Medical History Proteinuria Surgical History H/O eye surgery H/O total thyroidectomy Family History Daughter Thyroid cancer Mother Thyroid cancer Diabetes Other Thyroid disorder Denies family history of Ovarian cancer Prostate cancer Myocardial infarction Breast cancer Colorectal cancer Social History Smoking Status: Never smoker Second Hand Exposure: No; Do You Dip or Chew Tobacco: No; Hx Alcohol Use: No Hx Substance Use: No Preferred Language: Lithuanian Communication Ability: Effective Visual Impairment: No Limitations Hearing Ability: Use of Hearing Aid Mucker Operator Required: No Beliefs That Will Affect Care: None marital status: Current Living Situation: Spouse Current Living Situation Comment: States handicapped current occupational status: retired current occupation: homemaker Other Information That Helps Us Care for You: No Feels Safe at Home: Yes Safety Concerns: Feels Safe At This Time Childhood Exposure to Second-Hand Smoke: No Dental Care, Regularly: Yes Physical Activity Frequency: 3-4 Times per Week Seatbelt Use: always Sunscreen Use: Yes Assistive Devices: Walker Review of Systems Review of Systems: Fatigue, shortness of breath, chest pain, back pain Constitutional: as per Subjective / HPI Eyes: as per Subjective / HPI Ear, Nose, Mouth, Throat: as per Subjective / HPI Respiratory: as per Subjective / HPI Cardiovascular: as per Subjective / HPI Gastrointestinal: as per Subjective / HPI Genitourinary: as per Subjective / HPI Musculoskeletal: as per Subjective / HPI Integumentary: as per Subjective / HPI Neurologic: as per Subjective / HPI Psychiatric: as per Subjective / HPI Endocrine: as per Subjective / HPI Physical Exam Constitutional: WD/WN, vitals as above Eyes: PERRL, conjunctivae normal, anicteric sclerae ENMT: external ear and nose normal, oropharynx normal Neck: trachea midline, no thyromegaly Respiratory: normal respiratory effort, lungs clear to auscultation Cardiovascular: RRR, no murmur, no edema Gastrointestinal (Abdomen): normal bowel sounds, soft, nontender, no hepatosplenomegaly Musculoskeletal: no cyanosis or clubbing, extremities motor strength 5/5 Skin: no rashes, warm and dry Neurologic: patellar DTR's 2+ bilat, sensation intact Psychiatric: A+Ox3, euthymic affect Genitourinary: no vaginal lesions, no adnexal mass Lymphatic: no cervical or axillary lymphadenopathy Results & Data Vital Signs (Past 12 Hours) Vital Signs Temp Pulse Resp BP Pulse Ox O2 Del Method 06/04/24 07:20 Room Air 06/04/24 07:12 36.4 C L 82 16 144/81 H 94 Room Air
[2024-06-04] MEDS ORDERED: methylPREDNISolone 1000 MG/16 ML IV SCH (14:00)
[2024-06-04] MEDS: LANTUS PER UNIT CHARGE SQ SCH (21:21)
[2024-06-05 06:27] LABS: Hematocrit (blood only) 32.2 % (37.0-47.0); Hemoglobin 10.8 g/dl (12.0-16.0); Mean Corpuscular Hemoglobin 31.1 pg (25.0-34.0); Mean Corpuscular Hgb Conc 33.5 g/dL (32.0-36.0); Mean Corpuscular Volume 92.8 fL (80.0-100.0); Mean Platelet Volume 10.5 fL (9.4-12.4); Platelet Count 314 K/uL (130-400); RDW Coefficient of Variation 11.9 % (11.5-14.5); RDW Standard Deviation 39.9 fL (36.4-46.3); Red Blood Count 3.47 M/uL (4.20-5.40)
[2024-06-05 06:45] LABS: Albumin Globulin Ratio 1.5 (0.9-2); Albumin Level 3.2 gm/dl (3.4-5.0); BUN Creatinine Ratio 23.6 (10-20); Bilirubin,Total 0.3 mg/dl (0.2-1.0); Calcium 9.3 mg/dl (8.6-10.3); Creatinine Clr Calc Pharmacy 72.3 ml/min; Globulin 2.2 gm/dl (2.5-4.0); Potassium 4.4 mmol/L (3.5-5.1); Total Protein 5.4 gm/dl (6.0-8.3)
--- NOTE | 2024-06-05 07:37 | Pulmonology Progress Note ---
Date of Service June 05, 2024 Assessment & Plan (1) 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: (2) Lung mass: (3) Liver lesion: (4) Compression fracture of body of thoracic vertebra: Plan Impression: 74-year-old female non-smoker admitted with hypercalcemia multiple bone lesions lung masses and potential liver lesion. CT chest 06/02/2024 personally reviewed: Bilateral apical pleural scarring Postnasal appreciated bilaterally especially in the upper lobes Right lower lobe pulmonary mass 4.2 cm x 8 cm x 0.4 cm, left lower lobe mass 3.7 cm x 3.1 cm x 4.6 cm Stage cavitary lesion in the right middle lobe approximately 1.1 cm Minimal station 7 lymphadenopathy Lifetime non-smoker --Pulmonary masses with a cavitary lesion in the right middle lobe With probable metastatic spread to the spine Probability of cancer is high Patient is planned to have biopsy of the iliac spine by IR. -- Hypercalcemia Could be paraneoplastic given PTH is less than 1 Treatment as per primary team -- Strong family history of thyroid cancer in mother as well as 2 daughters Plan: For IR guided biopsy tomorrow, I discussed the case with IR Follow-up MRI of the spine. Please note the above document was generated using voice recognition software. It may contain grammatical, syntax or spelling errors.Any formal questions or concerns about the content, text or information contained within the body of this dictation should be directly addressed to the provider for clarification. Admission and Anticipated Discharge Date Admission Date: June 02, 2024 Subjective Patient seen and examined at bedside. No acute distress, notable symptoms overnight She denied any issues with her breathing No chest pain No headache, no blurry vision She was asking if she is going to have biopsy done today. Review of Systems 2 Review of Systems: All systems reviewed & are unremarkable except as noted in Subjective Physical Exam 2 Physical Exam: Constitutional: No acute distress HEENT: EOMI, PERRLA, hard to hear Respiratory system: Decreased air entry bilaterally, no wheeze, no rhonchi, no crackles CVS: S1-S2 positive, no murmurs or gallops Abdomen: Soft, nontender, nondistended, positive bowel sounds x4 Extremities: +2 pulses bilaterally radialis/ dorsalis pedis, no cyanosis, no edema Neuro: Awake alert oriented x3 Psych: Normal mood and affect G/U: No Casas Skin: no rashes, warm and dry Lymphatic: no cervical or axillary lymphadenopathy Results & Data Results & Data Vital Signs (Past 12 Hours) Vital Signs Temp Pulse Resp BP Pulse Ox O2 Del Method 06/05/24 07:06 36.7 C 103 H 18 161/79 H 97 Room Air 06/04/24 21:31 36.7 C 79 17 144/76 H 93 Room Air Laboratory Results 06/05/24 05:26 06/05/24 05:26 PG Care Time/CCT Total # of Minutes Spent Total Time Spent with Patient: Total time spent is greater than 50% in coordination of care (as documented) at patient's floor/unit and/or counseling patient: Coding Level of Care Code 41304 SUB INP/OBS CARE 2/35MIN Diagnoses 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 C79.51; C80.1 Lung mass R91.8 Liver lesion K76.9 Compression fracture of body of thoracic vertebra S22.000A
--- NOTE | 2024-06-05 08:04 | CT Scan Report ---
EXAM: CT thoracic spine wo con CLINICAL HISTORY: fracture back pain TECHNIQUE: Multiple axial images of CT thoracic spine without contrast was submitted in bone and soft tissue window. One of the following dose reduction techniques were utilized for this exam: Automated exposure control, adjustment of the mA and/or kV according to patient size, and use of iterative reconstruction. CTDI:14mGy, DLP: 501.65mGy*cm. COMPARISON: CR 06/02/2024. FINDINGS: T3 vertebral body compression fracture with osteolytic mass lesion involving its posterior part and extending to both pedicles. with mild retropulsion revealed compressing the ventral theca with marked bilateral foraminal compromise. T12 vertebral body demonstrates an osteolytic mass lesion involving most of the body and right pedicular extension was noted. Focal lytic lesion in T10 and T11 vertebral bodies. Diffuse osteopenia of the examined bones. Mild spondylosis of the thoracic spine with marginal osteophytosis. T2-3 disc space narrowing noted with mild posterior disc bulge noted. T7-8 small posterior disc/osteophyte protrusion compresses the ventral theca with preserved both exit neural foramina. Normal appearance of the paraspinal soft tissues. No abnormal masses, fluid collections, or signs of inflammation. Consolidation in the right lower lobe in the medial location measuring approximately 4.8 x 3.7 cm. This may represent a neoplastic etiology. Mild bilateral pleural effusion. IMPRESSION: 1. T3 shows evidence of pathologic compression fracture with underlying osteolytic mass lesion causing retro-population compressing theca and causing bilateral foraminal stenosis , suggestive of metastatic deposit , needs further MRI with contrast assessment. 2. Focal lytic lesion in T10 and T11 vertebral bodies. Another T12 osteolytic vertebral body lesion. Likely metastatic in origin. 3. Mild spondylosis of the thoracic spine is seen. 4. Consolidation in the right lower lobe in the medial location measuring approximately 4.8 x 3.7 cm. This may represent neoplastic etiology. Clinical correlation and further evaluation is recommended. 5. Mild bilateral pleural effusion. Electronically signed by Damir Vences 06-05-2024 08:03 AM
[2024-06-05 08:05] LABS: Prothrombin Time 10.8 Seconds (9.0-12.0)
--- NOTE | 2024-06-05 11:01 | Orthopedic Consultation ---
Date of Consultation June 05, 2024 Assessment & Plan (1) Vertebral fracture, pathological: Plan at this time I am awaiting thoracic and lumbar MRIs to be complete. Due to the amount of bone loss noted at T3 I do not feel she would be an adequate candidate for a kyphoplasty stabilization. An instrumented fusion at this level would be a consideration but technically challenging. Further recommendations pending her MRI scans. I would recommend consultation with radiation oncology for their input as well. This point I would limit her only with weight lifting. Asked that she not lift more than 5 pounds. History of Present Illness Reason for Consultation: Upper thoracic back pain with a history of bilateral sciatica and back pain Attending Physician: Timothy Polanco, History of Present Illness This is a 74-year-old female admitted to the hospital with hypercalcemia. She describes a history of intermittent sciatica over the past couple months. She states that during her hospital stay this has temporarily resolved. She also notes significant upper thoracic back pain worse with activity. It does not awaken her from sleep. She denies any numbness or tingling the upper extremities or strength deficits. At this time her lower extremities are asymptomatic as well. She denies any specific trauma fall or event that may have created her pain. Allergies Allergy/AdvReac Type Severity Reaction Status Date / Time tetanus immune globulin Allergy Severe TETANUS Verified 06/02/24 09:00 VACCINE-HIVES aspartame AdvReac Severe MIGRAINE Verified 06/02/24 23:03 W/ [employer] Home Medications Medication Instructions Recorded Confirmed Type cyanocobalamin (vitamin B-12) 500 PO .TAKE 1 TABLET DAILY. #90 tabs 01/19/19 06/02/24 History mcg tablet lancets (SupplyFrameTouch UltraSoft #50 ea 12/06/19 06/02/24 History Lancets) aspirin 81 mg tablet,delayed 81 mg PO DAILY 01/23/20 06/02/24 History release cholecalciferol (vitamin D3) 25 1,000 units PO DAILY #30 caps 02/06/20 06/02/24 Rx mcg (1,000 unit) capsule blood sugar diagnostic (SupplyFrameTouch #200 ea 06/11/20 06/02/24 Rx Ultra Blue Test Strip) lancets 33 gauge (OneTouch Delica #200 ea 06/11/20 06/02/24 Rx Lancets) Novolog FlexPen U-100 Insulin 100 15 unit (0.15 mL) subcut DAILY #15 02/01/23 06/02/24 Rx unit/mL (3 mL) subcutaneous mL (insulin aspart U-100) BD Ultra-Fine Jany Pen Needle 32 #400 ea 07/08/23 06/02/24 Rx gauge x 5/32" (pen needle, diabetic) levothyroxine 88 mcg tablet 88 mcg PO DAILY #90 tabs 09/20/23 06/02/24 Rx lisinopril 5 mg tablet 5 mg PO DAILY #90 tabs 01/25/24 06/02/24 Rx simvastatin 40 mg tablet 40 mg PO DAILY #90 tabs 01/25/24 06/02/24 Rx insulin glargine 100 unit/mL (3 16 unit (0.16 mL) subcut DAILY 03/02/24 06/02/24 Rx mL) subcutaneous pen (Lantus Diabetes #15 mL Solostar U-100 Insulin) meloxicam 7.5 mg tablet 7.5 mg PO DAILY PRN Low back pain 05/15/24 06/02/24 Rx #30 tabs methocarbamol 500 mg tablet 500 mg PO TID PRN muscle spasm #30 05/31/24 06/02/24 Rx tabs tramadol 50 mg tablet 50 mg PO BID PRN pain #30 tabs 06/02/24 06/02/24 Rx Patient History Medical History Proteinuria Surgical History H/O eye surgery H/O total thyroidectomy Family History Daughter Thyroid cancer Mother Thyroid cancer Diabetes Other Thyroid disorder Denies family history of Ovarian cancer Prostate cancer Myocardial infarction Breast cancer Colorectal cancer Social History Smoking Status: Never smoker Second Hand Exposure: No; Do You Dip or Chew Tobacco: No; Hx Alcohol Use: No Hx Substance Use: No Preferred Language: Bahraini Communication Ability: Effective Visual Impairment: No Limitations Hearing Ability: Use of Hearing Aid Hogshead Filler Required: No Beliefs That Will Affect Care: None marital status: Current Living Situation: Spouse Current Living Situation Comment: States handicapped current occupational status: retired current occupation: homemaker Other Information That Helps Us Care for You: No Feels Safe at Home: Yes Safety Concerns: Feels Safe At This Time Childhood Exposure to Second-Hand Smoke: No Dental Care, Regularly: Yes Physical Activity Frequency: 3-4 Times per Week Seatbelt Use: always Sunscreen Use: Yes Assistive Devices: Walker Physical Exam Physical Exam: On exam she sits up in bed without difficulty. She does have pain to percussion but palpation over the upper thoracic region. No abnormal skin markings. She has excellent strength testing upper lower extremities both sensory and motor. Results & Data Vital Signs (Past 12 Hours) Vital Signs Temp Pulse Resp BP Pulse Ox O2 Del Method 06/05/24 07:06 36.7 C 103 H 18 161/79 H 97 Room Air
--- NOTE | 2024-06-05 11:11 | Pharmacy Report ---
Pharmacy Glycemic Short Note 2 - Date of Service June 05, 2024 - Glycemic Short BSG Results (Last 24 hours): 06/04/24 06/04/24 06/04/24 11:44 16:27 20:17 Glucose POC Glucose 145 H 290 H 265 H 06/05/24 06/05/24 05:26 07:27 Glucose 249 H POC Glucose 255 H OUTPATIENT ANTIDIABETIC REGIMEN: * Lantus 16 units SQ HS * NovoLog 4 units with breakfast and lunch, 7 units with dinner (patient rarely using prior to admission due to decreased PO intake) * A1c 7.6% 03/2024 ASSESSMENT: 06/05 * Methylprednisolone 60 mg IV q8h scheduled started yesterday and continuing today, which was associated with a significant bump in BSG's despite minimal PO intake (5-20g/meal) * AM fasting elevated. However, possibly due to insufficient correctional insulin at HS yesterday. Hesitant to increase significantly 2nd T1DM and also severe hypoglycemia noted 06/04 AM with a dose only 2 units higher than current. Will leave Lantus as-is for now and trend * Post-prandial BSG's elevated - likely 2nd steroids. Will tighten correction factor and carb ratio, but not too aggressively 2nd T1DM and also recent severe hypoglycemia. Will add one overnight check. 06/04 * Blood sugars pretty well controlled yesterday with 8 units of Lantus (half of home dose) 06/02 evening, and no NovoLog needed as PO intake was minimal, blood sugar did rise to 246mg/dl last night, pt received 3 units correctional insulin and 8 units of Lantus again, resulting in hypoglycemia this morning, asymptomatic. * Will further reduce basal by 25%, and change goal range, and loosen NovoLog parameters to prevent hypoglycemia. * Today patient started on ATC oxycodone, and IV Solu-Medrol, which complicates glycemic control. Will continue with the adjustments above and consider titrating back up if patient becomes hyperglycemic. 06/03 * 74 yo F, presented because of abnormal labs, significant hypercalcemia with a calcium of 12.4, also concerns for T3 fracture. Patient was found to have a lung mass, CT imaging, multiple bony lesions noted as well as lung masses. Concerning for carcinoma with bony metastases. * Type 1 diabetic on 31 units of insulin per day, 8 units of basal given last night, euglycemic this morning, will continue this dose at this time while inpatient and NovoLog CF/CR. PLAN FOR INPATIENT GLYCEMIC CONTROL: * Basal insulin * Lantus 6 units SQ HS * Bolus insulin * NovoLog per scale ACHS or Q6hrs while NPO. One overnight check tonight * Goal Range: Low 120 mg/dL - High 180 mg/dL * Correction Factor: 40 mg/dL/unit * Nutritional / Prandial insulin per carb ratio of 1 unit per 16 grams CHO consumed
[2024-06-05] MEDS: fentaNYL citrate PF 100 MCG/2 ML VIAL ONE (13:33)
--- NOTE | 2024-06-05 13:34 | Magnetic Resonance Report ---
MRI OF THE LUMBAR SPINE WITH AND WITHOUT CONTRAST CLINICAL HISTORY: r/o mets COMPARISON STUDY: Lumbar spine CT June 02, 2024. TECHNIQUE: Utilizing a 1.5 Lizbeth magnet and dedicated coil, multiplanar, multiecho imaging of the [facility] spine was performed before and after uneventful IV administration of Gadavist. FINDINGS: For purposes of numbering on this exam, the L5-S1 disc space is assigned to axial image 29 of 33. Foc i of marrow replacement within the lower thoracic, lumbar spine, sacrum and left iliac bone are prese nt. T12 pathologic fracture with mild loss of height of the superior endplate is noted. There is also pathologic fracture of S1 with moderate loss of height of the superior endplate. Mild extension of t umor into the anterior epidural space at the S1 level is present. This results in mild to moderate ce ntral canal stenosis. A pathologic fracture of the medial left iliac bone is partially imaged. There are also pathologic fractures of the bilateral sacral ala. The conus terminates at the mid L1 level. Moderate multilevel degenerative disc disease and facet arthrosis is present. There is no severe cent ral canal stenosis within the lumbar spine. L1-2: The central canal and neural foramen are patent. L2-3: There is disc space narrowing with disc bulge, facet arthrosis and ligamentous hypertrophy. The findings result in mild narrowing of the central canal and lateral recesses. The neural foramen are patent. L3-4: There is disc space narrowing with facet arthrosis and ligamentous hypertrophy. Findings result in mild narrowing of the central canal, lateral recesses and the neural foramen. L4-5: There is moderate facet arthrosis with ligamentous hypertrophy. There is disc bulge. There is m ild to moderate central canal and bilateral neural foraminal stenosis. L5-S1: Facet arthrosis is present. Extension of tumor into the intradural space is present. Findings result in mild to moderate central canal stenosis. There is moderate bilateral neural foraminal steno sis at this level. Moderate narrowing of the bilateral S1-S2 neural foramen. IMPRESSION: 1. Multifocal marrow replacement consistent with metastatic disease. Pathologic fractures of T12, S1/ bilateral sacral ala and the medial left iliac bone. 2. Mild epidural extension of tumor at the S1 level which results in mild to moderate central canal s tenosis. No severe stenosis within the lower thoracic, lumbar or sacral canals. Moderate narrowing of the bilateral S2-S3 neural foramen. 3. Moderate multilevel degenerative changes within the lumbar spine. ACT 112: Negative or not required by law. Electronically signed by: Julio Smith M.D. 06/05/2024 1:32 PM
[2024-06-05] MEDS: INSULIN ASPART PER UNIT CHARGE SC ONE (13:35)
--- NOTE | 2024-06-05 14:07 | Magnetic Resonance Report ---
MR thoracic spine wo/w con HISTORY: 74 years-old Female mets acute mid back pain in a patient with reported metastatic disease. COMPARISON: MRI lumbar spine of same day, CT thoracic spine of same day, CT chest, abdomen and pelvis 06/02/2024. TECHNIQUE: Multiplanar multisequence MRI of the thoracic spine was obtained with and without IV contr ast. FINDINGS: Mildly motion degraded exam. Expansile lesion at S1, better seen on the MRI lumbar spine study of cecil e day. Heterogeneous signal abnormality within the visualized cervical spine. Large left iliac lesion . 4 cm mass within the left lower lobe. Mass-like area of consolidation within the right lung on imag e 12 series 25 measures 4.4 cm. Small pleural effusions with bibasilar atelectasis. Liver lesions bet ter seen on comparison CT abdomen and pelvis. Scattered osteolytic skeletal lesions redemonstrated most notably at T3 and T12. The T12 lesion demon strates avid enhancement and extends into the right pedicle. Mild superior endplate compression at T1 2. Minimal marrow edema. No retropulsion. Scattered vertebral body hemangiomata also noted measuring up to 12 mm at T11. Pathologic fracture at T3 redemonstrated which is likely subacute with moderate marrow edema which ex tends into the pedicles and transverse processes. There is circumferential enhancement surrounding th e T3 vertebral body with extension of tumor. Retropulsion and anterior epidural extension of tumor me asures up to approximately 5 mm in AP dimension posteriorly. Severe central canal stenosis with AP di mension of the central canal measuring 2.5 mm. Additionally, there is severe bilateral T2-T3 and T3-T 4 neural foraminal narrowing at this level secondary to the epidural extension of tumor. Mildly incre ased T2/STIR signal within the thoracic spinal cord at this level. Mild multilevel intervertebral disc space narrowing and spondylotic spurring with small posterior yuan ular disc bulging and moderate facet arthrosis. No additional significant central canal stenosis. Mil d multilevel neural foraminal narrowing. IMPRESSION: 1. Scattered osteolytic skeletal metastasis redemonstrated involving the thoracolumbar spine. The lar gest lesions within the bony thorax are again noted at T3 and T12. 2. Small pleural effusions with bibasilar pulmonary lesions. These are better seen on the chest CT fr om 06/02/2024. 3. Likely subacute T3 pathologic fracture. Associated epidural extension of disease at this level cau ses severe central canal stenosis with severe bilateral foraminal narrowing at T2-T3 and T3-T4 and mi ld edema of the thoracic spinal cord. 4. Mild superior endplate T12 pathologic fracture, likely subacute. 5. Please refer to the same day MRI lumbar spine for additional findings. ACT 112: Negative or not required by law. The above report was generated using voice recognition software. It may contain grammatical, syntax o r spelling errors. Dictated: 06/05/2024 1:25 PM Transcribed: 06/05/2024 1:54 PM Clem [id number] [email or web address] [id number] Electronically signed by: Sagar Ball M.D. 06/05/2024 2:06 PM
--- NOTE | 2024-06-05 17:12 | Hospitalist Progress Note ---
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 Mass in LLL. Burst fracture in T3 - Will likely proceed with IR guided liver biopsy as patient is medically stable (4) Diabetes mellitus type 1, controlled: Plan: Hemoglobin A1C 7.6 in March, no need to repeat Continue Lantus 16 units HS Novolog: --Goal BSG Range: Low 110 mg/dL, High 140 mg/dL --Correction Factor: 45 mg/dL/unit --Carbohydrate ratio = 15 g/unit --BSGs ACHS if eating, q6h if npo Due to T1DM will consult pharmacy for ongoing glycemic control (5) Hypothyroidism, postablative: Plan: TSH with AM labs Continue levothyroxine 88 mcg PO daily (6) Metastatic malignant neoplasm of unknown primary site: Plan: - CT AP: metastatic disease within spine and pelvis, with metastatic liver lesions, and fat containing masses in kidneys - Plans to proceed with IR guided liver biopsy (7) Hyponatremia: Plan: - Most recent level 130 - Possibly dilutional from fluids - Can supplement if levels remain low Plan HTN - continue lisinopril VTE Prophylaxis - Lovenox 40mg SQ HS Diet - T1DM Disposition - admit to med/surg Admission and Anticipated Discharge Date Admission Date: June 02, 2024 Supervising Physician Co-Signing Physician Notes I personally examined the patient and verified all leigh points of history and exam, discussed case, and agree with decision making with Dr Becerra attempted to see several times - asleep and appearing comfortable each time. allowed to rest. multiple managed services consultant input noted and appreciated vitals noted nad heent nc at mmm breathing unlabored no accessory muscles good effort skin without pallor metastatic cancer - primary to be determined, US bx tomorrow. Cspine fx ortho appreciated radiation oncology input pending. medical oncology assistance appreciated, as well as pulm. conitnue supportive care and multidisciplinary approach. otherwise as above, DVT proph - lovenox Subjective Patient seen and examined at bedside. No acute distress, chest pain, palpitations, SOB, cough, wheeze, abdominal pain, nausea, vomiting. Patient much improved and in much less pain compared to yesterday. No headache, dizziness, blurry vision. Physical Exam Physical Exam: General: patient resting comfortably, NAD, non-toxic in appearance, answers questions appropriately. Skin: warm, dry, intact HEENT: NC/AT, anicteric sclera, conjunctiva without injection, moist mucus membranes. Heart: +S1/S2, regular, no m/r/g Lungs: equal air entry bilaterally, no rales/rhonchi/wheezes Abd: +BS, soft, NT/ND Ext: warm, no clubbing/cyanosis or edema, Zahra's neg. Neuro: nonfocal, speech intact, no facial droop, moving all extremities. Results & Data Results & Data Vital Signs (Past 12 Hours) Vital Signs Temp Pulse Resp BP Pulse Ox O2 Del Method 06/05/24 07:10 Room Air 06/05/24 07:06 36.7 C 103 H 18 161/79 H 97 Room Air
--- NOTE | 2024-06-05 19:22 | Billing Data ---
Date of Service June 05, 2024 Coding Level of Care Code 15770 SUB INP/OBS CARE
[2024-06-06 06:35] LABS: Hematocrit (blood only) 32.4 % (37.0-47.0); Hemoglobin 11.1 g/dl (12.0-16.0); Mean Corpuscular Hemoglobin 31.1 pg (25.0-34.0); Mean Corpuscular Hgb Conc 34.3 g/dL (32.0-36.0); Mean Corpuscular Volume 90.8 fL (80.0-100.0); Mean Platelet Volume 10.1 fL (9.4-12.4); Platelet Count 407 K/uL (130-400); RDW Coefficient of Variation 12.1 % (11.5-14.5); RDW Standard Deviation 40.5 fL (36.4-46.3); Red Blood Count 3.57 M/uL (4.20-5.40)
--- NOTE | 2024-06-06 06:45 | Hospitalist Progress Note ---
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 Mass in LLL. Burst fracture in T3 - Will proceed with IR guided liver biopsy as patient is medically stable - Potential bronchoscopy if this is negative (4) Diabetes mellitus type 1, controlled: Plan: Hemoglobin A1C 7.6 in March, no need to repeat Continue Lantus 16 units HS Novolog: --Goal BSG Range: Low 110 mg/dL, High 140 mg/dL --Correction Factor: 45 mg/dL/unit --Carbohydrate ratio = 15 g/unit --BSGs ACHS if eating, q6h if npo Due to T1DM will consult pharmacy for ongoing glycemic control (5) Hypothyroidism, postablative: Plan: TSH with AM labs Continue levothyroxine 88 mcg PO daily (6) Metastatic malignant neoplasm of unknown primary site: Plan: - CT AP: metastatic disease within spine and pelvis, with metastatic liver lesions, and fat containing masses in kidneys - Ortho spine on board for potential kyphoplasty and biopsy of T12 if necessary. - Will have further information after IR guided liver biopsy (7) Hyponatremia: Plan: - Most recent level 130 - Possibly dilutional from fluids - Can supplement if levels remain low Plan HTN - continue lisinopril VTE Prophylaxis - Lovenox 40mg SQ HS Diet - T1DM Disposition - admit to med/surg Admission and Anticipated Discharge Date Admission Date: June 02, 2024 Supervising Physician Co-Signing Physician Notes I personally examined the patient and verified all leigh points of history and exam, discussed case, and agree with decision making with Dr Becerra feeling ok pain under control. family present - updated to the best of my ability and to their satisfaction. d/w ortho and radiation oncology input greatly appreciated vitals noted nad heent nc at mmm breathing unlabored no accessory muscles good effort skin no rashes no pallor or icterus metastatic cancer - primary to be determined, biopsy done today (results pending). spine - hopefully XRT first then surgical stabilization after d/w XRT and ortho/spine. continue steroids, ongoing monitoring. ongoing supportive care. severe protein/calorie malnutrition likely due to cancer - bracelet form coverer consulted/input appreciated otherwise as above, DVT proph - lovenox Subjective Patient seen at bedside this am resting comfortably. Aches and pains have improved with consistent pain at T3 vertebral fracture site and left sided lower back pain. Patient seen ambulating this morning and is in no acute distress. Today patient denies fever, chill, headache, nausea, vomiting, or abdominal pain. Physical Exam Physical Exam: General: patient resting comfortably, NAD, non-toxic in appearance, answers questions appropriately. Skin: warm, dry, intact HEENT: NC/AT, anicteric sclera, conjunctiva without injection, moist mucus membranes. Heart: +S1/S2, regular, no m/r/g Lungs: equal air entry bilaterally, no rales/rhonchi/wheezes Abd: +BS, soft, NT/ND Ext: warm, no clubbing/cyanosis or edema, Zahra's neg. Neuro: nonfocal, speech intact, no facial droop, moving all extremities. Results & Data Results & Data Vital Signs (Past 12 Hours) Vital Signs Temp Pulse Resp BP Pulse Ox O2 Del Method 06/05/24 21:31 Room Air 06/05/24 20:17 37.0 C 90 16 143/74 H 96 Room Air Resident Activity Tracking Resident Involvement: Resident Care Provided Care Provided: Adult Hospital Medicine
[2024-06-06 06:58] LABS: Albumin Globulin Ratio 1.6 (0.9-2); Albumin Level 3.7 gm/dl (3.4-5.0); BUN Creatinine Ratio 34.8 (10-20); Bilirubin,Total 0.3 mg/dl (0.2-1.0); Calcium 8.9 mg/dl (8.6-10.3); Creatinine Clr Calc Pharmacy 60.3 ml/min; Globulin 2.3 gm/dl (2.5-4.0); Magnesium 1.5 mg/dl (1.7-2.4); Potassium 4.3 mmol/L (3.5-5.1)
--- NOTE | 2024-06-06 09:13 | Pulmonology Progress Note ---
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 CT chest 06/02/2024 personally reviewed: Bilateral apical pleural scarring Postnasal appreciated bilaterally especially in the upper lobes Right lower lobe pulmonary mass 4.2 cm x 8 cm x 0.4 cm, left lower lobe mass 3.7 cm x 3.1 cm x 4.6 cm Stage cavitary lesion in the right middle lobe approximately 1.1 cm Minimal station 7 lymphadenopathy Lifetime non-smoker --Pulmonary masses with a cavitary lesion in the right middle lobe With probable metastatic spread to the spine Probability of cancer is high Patient is planned to have biopsy of the iliac spine by IR. -- Hypercalcemia Could be paraneoplastic given PTH is less than 1 Treatment as per primary team -- Strong family history of thyroid cancer in mother as well as 2 daughters Thank you for allowing us participate in the care of this pleasant patient. Pulmonary medicines can sign off at this time. Please feel free to reach out for any further questions or concerns. Admission and Anticipated Discharge Date Admission Date: June 02, 2024 Supervising Physician Co-Signing Physician Notes I saw and evaluated the patient with César Beck PA-C, and agree with findings and plan as documented in the note. Patient seen and examined at bedside. No acute distress, notable symptoms overnight Denied any significant back pain. No shortness of breath, no chest pain No fever or chills Constitutional: No acute distress HEENT: EOMI, PERRLA, hard to hear Respiratory system: Decreased air entry bilaterally, no wheeze, no rhonchi, no crackles CVS: S1-S2 positive, no murmurs or gallops Abdomen: Soft, nontender, nondistended, positive bowel sounds x4 Extremities: +2 pulses bilaterally radialis/ dorsalis pedis, no cyanosis, no edema Neuro: Awake alert oriented x3 Psych: Normal mood and affect G/U: No Casas Plan: For IR guided biopsy today I discussed the case with IR Hopefully they will be able to get the diagnosis with the biopsy. If they are not able to then we can consider navigational bronc No further recommendation from pulmonary perspective, will sign off Please call directly with any questions Please note the above document was generated using voice recognition software. It may contain grammatical, syntax or spelling errors.Any formal questions or concerns about the content, text or information contained within the body of this dictation should be directly addressed to the provider for clarification. Subjective Patient seen and evaluated at bedside. She reports some discomfort from her shoulders, but offers no complaints with her breathing. No chest pain or palpitations. No hemoptysis. Review of Systems Review of Systems: Please refer to admission H&P Physical Exam Physical Exam: VITAL SIGNS Vital signs and nursing notes were reviewed. GENERAL 74-year-old female appearing his stated age who is in no acute distress. Communicates well with provider and answers questions appropriately. SKIN Without rashes or lesions. NOSE Midline and without cyanosis. MOUTH/OROPHARYNX Without perioral cyanosis. NECK Neck with FROM. LUNGS Chest wall evaluation demonstrates normal chest wall A:P diameter. Auscultation reveals clear breath sounds. CARDIAC RRR with S1/S2. No murmur, rubs, or gallops appreciated. EXTREMITIES Nail clubbing not present. No peripheral cyanosis. No pretibial edema present. +3/5 radial palpated throughout. PSYCH A&Ox3 and cooperates fully with examiner. Pt is very pleasant and interacts well with examiner. 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
--- NOTE | 2024-06-06 09:26 | Orthopedic Progress Note ---
Date of Service June 06, 2024 Assessment & Plan (1) Vertebral fracture, pathological: Plan: I had discussion today with the patient regarding the treatment plan. At this point we will await results of biopsy and impressions from radiation oncology. We may consider radiation to the T3 level versus decompression fusion pending results of biopsy. Will continue with steroids at this time. Admission and Anticipated Discharge Date Admission Date: June 02, 2024 Subjective Thoracic back pain is present but controlled. She has been up and ambulating this morning. Denies any numbness or tingling to the legs. Physical Exam Physical Exam: Patient is ambulating about the room. She continues to have tenderness to palpation of her thoracic spine. Results & Data Vital Signs (Past 12 Hours) Vital Signs Temp Pulse Pulse Resp BP BP Pulse Ox 06/06/24 07:27 36.7 C 90 90 12 137/69 137/69 98 06/05/24 21:31 O2 Del Method 06/06/24 07:27 Room Air 06/05/24 21:31 Room Air
[2024-06-06] MEDS: MAGNESIUM SULFATE / D5W 1 GM/100 ML BAG IV SCH ×2 (09:40→17:51)
[2024-06-06] MEDS: methylPREDNISolone 60 MG in SYRINGE 0 ML IV SCH (09:59)
--- NOTE | 2024-06-06 10:57 | Radiation OncologyConsultation ---
Date of Consultation June 06, 2024 Assessment & Plan (1) Metastatic malignant neoplasm of unknown primary site: Plan ATTENDING ADDENDUM Assessment: Ms. Montoya is a 74-year-old female who is a non-smoker who recently presented to the hospital and was admitted due to a presentation of widespread metastatic cancer involving the lungs, multiple bones, liver and other sites of unknown primary. The patient has no previous history of a cancer diagnosis. The patient does have evidence of metastatic disease involving the T3 vertebral body with posterior epidural extension abutting the spinal cord. The patient initially presented with bilateral paresthesias which have since resolved since she has been placed on Decadron. The patient has been evaluated by Dr. Robledo from orthopedic surgery who discussed options including surgery versus radiation therapy. We are now seeing the patient to discuss the role of radiation therapy. Recommendation: Palliative radiation therapy to the thoracic spine is a potential option of treatment if the patient is felt to have no concern for spinal instability. Plan: 1. CT-guided biopsy of liver to be completed today. Will follow-up with results. 2. Confirm final plan with orthopedic surgery to determine role of radiation therapy. 3. Pain management as per primary medical team. 4. Medical oncology consultation. 5. PET/CT scan in the outpatient setting. 6. MRI of brain should be completed in the inpatient or outpatient setting. 6. Patient and family encouraged to call us with any further questions or concerns. Rationale/Explanation of Treatment: I explained the indications, alternatives, benefits, risks and side effects of external beam radiation therapy. I then discussed radiation therapy side effects for treatment which include, but are not limited to, skin erythema, dry/moist desquamation of the skin, hyperpigmentation, telangiectasias, damage to the heart and development of cardiovascular disease, damage to the lungs including radiation pneumonitis, pulmonary fibrosis, decrease in pulmonary function, cough, fistula formation, tracheal stenosis, esophageal stenosis, esophageal perforation, dysphagia, nausea, vomiting, ulcers in stomach/bowel, gastritis, gastric perforation, bowel perforation, bowel obstruction, weight loss, dehydration, decreased appetite, liver damage including hepatitis and liver failure, damage to the kidneys including decreased renal function and renal failure, spinal cord damage including myelopathy, fatigue and secondary malignancy. History of Present Illness Reason for Consultation: Destructive bone lesions with associated pain Requesting Physician: Timothy Polanco DO Attending Physician: Timothy R Sherri, DO History of Present Illness 06/02/2024. Emergency room evaluation with multiple radiologic studies. 06/02/2024. X-ray of ribs and chest. 1. 4 cm mass-like left lower lobe opacity. This is worrisome for a lung neoplasm. A CT of the chest is recommended for further evaluation. This finding will be called/faxed to the ordering provider at time of dictation. 2. 1.2 cm right midlung nodule which can be assessed on follow-up CT. 3. No pneumothorax. No acute right-sided rib fractures identified. 06/02/2024. CT of the thoracic spine. 1. 4 cm mass-like left lower lobe opacity. This is worrisome for a lung neoplasm. CT of the chest is recommended for further evaluation. 2. Upper thoracic spine fracture, possibly T3, as described above. 70% loss of vertebral body height with possible underlying erosion. A pathologic fracture cannot be excluded. This can be assessed on the chest CT. Addendum 1. T3 shows evidence of pathologic compression fracture with underlying osteolytic mass lesion causing retro-population compressing theca and causing bilateral foraminal stenosis , suggestive of metastatic deposit , needs further MRI with contrast assessment. 2. Focal lytic lesion in T10 and T11 vertebral bodies. Another T12 osteolytic vertebral body lesion. Likely metastatic in origin. 3. Mild spondylosis of the thoracic spine is seen. 4. Consolidation in the right lower lobe in the medial location measuring approximately 4.8 x 3.7 cm. This may represent neoplastic etiology. Clinical correlation and further evaluation is recommended. 5. Mild bilateral pleural effusion. 06/02/2024. CT of the abdomen and pelvis. 1. Osseous metastatic disease within the spine and pelvis. Pathologic fractures involving the left iliac bone and S1 vertebral body. 2. A few lesions in the liver suspicious for metastatic disease. 3. Areas of decreased enhancement within the left renal cortex potentially representing pyelonephritis. Correlate clinically. 4. Fat-containing mass between the superior pole of the left kidney in the left adrenal gland measuring 4.4 x 3.4 cm. 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 5. Large colonic stool burden consistent with constipation. No obstruction. 06/02/2024. CT of the chest. 1. Mass in the medial right lower lobe measuring 4.2 x 8.0 x 4.4 cm. Right lower lobe collapse and tumor thrombus in the right lower lobe from this mass. No bland thrombus or heart strain. 2. Mass in the left lower lobe measuring 3.7 x 3.1 x 4.6 cm. 3. A few additional scattered pulmonary nodules. One shows cavitation measuring 1.1 cm within the right middle lobe. 4. Pathologic burst fracture T3. Severe spinal canal stenosis. Severe bilateral foraminal stenosis at T2-3 and T3-4. 06/02/2024. CT of the lumbar spine. Multiple lytic metastatic lesions as described with pathologic fractures of the T12 superior endplate, S1 superior endplate, right sacral ala, and left posterior iliac wing. No spinal canal stenosis. 06/04/2024. Medical oncology consultation (Dr. Lindsey).Multiple lytic bony lesions; pathological fracture at T2. Diff diagnosis: metastatic cancer, ? Multiple myeloma Consider spine surgery eval, for possible kypho/vertebroplasty given severe spinal canal stenosis. Consider MRI spine of Thoraco lumbar spine. If candidate for kypho/vertebro plasty then tissue may be obtained during procedure. 06/05/2024. MRI of the lumbar spine. 1. Multifocal marrow replacement consistent with metastatic disease. Pathologic fractures of T12, S1/bilateral sacral ala and the medial left iliac bone. 2. Mild epidural extension of tumor at the S1 level which results in mild to moderate central canal stenosis. No severe stenosis within the lower thoracic, lumbar or sacral canals. Moderate narrowing of the bilateral S2-S3 neural foramen. 3. Moderate multilevel degenerative changes within the lumbar spine. 06/05/2024. Thoracic spine MRI. 1. Scattered osteolytic skeletal metastasis redemonstrated involving the thoracolumbar spine. The largest lesions within the bony thorax are again noted at T3 and T12. 2. Small pleural effusions with bibasilar pulmonary lesions. These are better seen on the chest CT from 06/02/2024. 3. Likely subacute T3 pathologic fracture. Associated epidural extension of disease at this level causes severe central canal stenosis with severe bilateral foraminal narrowing at T2-T3 and T3-T4 and mild edema of the thoracic spinal cord. 4. Mild superior endplate T12 pathologic fracture, likely subacute. 06/05/2024. Pulmonary consultation (Dr. Jerome). Carcinoma of unknown primary/lung mass/liver lesion/compression fracture of body of thoracic v ertebrae. Plan for IR guided biopsy. 06/05/2024. Orthopedic consultation (Dr. Robledo). Is felt that she is not an adequate candidate for kyphoplasty stabilization. Due to the amount of bone loss noted at T3. Consider instrumented fusion but technically challenging. Will review MRIs. 06/05/2024. Orthopedic follow-up. Plan to await results of the biopsy and input of radiation oncology. Consider radiation to the T3 level versus decompression fusion pending results of biopsy. 06/06/2024. Radiation oncology consultation (Dr. Spike Franks). Patient began having pain of the left posterior leg 2 months ago. This radiated down her leg. This seemed to improve she then developed pain 1 month ago of the lower neck region. She would have pain at a level of 10 out of 10. She noticed the pain radiated around towards the upper chest bilaterally. She started taking ibuprofen. She took 800 mg every 6 hours. This would offer some mild relief. She has noticed weakness in the upper thigh area with paresthesias. She has had a very poor appetite and has lost approximately 20 pounds. She associated her loss of appetite due to the amount of pain she was having. Due to increasing back pain she presented to the emergency room. Since receiving steroid therapy the paresthesias of the upper upper thigh area has resolved. She is now giving a pain level of 4 out of 10 with current pain regimen. Allergies Allergy/AdvReac Type Severity Reaction Status Date / Time tetanus immune globulin Allergy Severe TETANUS Verified 06/02/24 09:00 VACCINE-HIVES aspartame AdvReac Severe MIGRAINE Verified 06/02/24 23:03 W/ [employer] Home Medications Medication Instructions Recorded Confirmed Type cyanocobalamin (vitamin B-12) 500 PO .TAKE 1 TABLET DAILY. #90 tabs 01/19/19 06/02/24 History mcg tablet lancets (Cactus UltraSoft #50 ea 12/06/19 06/02/24 History Lancets) aspirin 81 mg tablet,delayed 81 mg PO DAILY 01/23/20 06/02/24 History release cholecalciferol (vitamin D3) 25 1,000 units PO DAILY #30 caps 02/06/20 06/02/24 Rx mcg (1,000 unit) capsule blood sugar diagnostic (Cactus #200 ea 06/11/20 06/02/24 Rx Ultra Blue Test Strip) lancets 33 gauge (OneTouch Delica #200 ea 06/11/20 06/02/24 Rx Lancets) Novolog FlexPen U-100 Insulin 100 15 unit (0.15 mL) subcut DAILY #15 02/01/23 06/02/24 Rx unit/mL (3 mL) subcutaneous mL (insulin aspart U-100) BD Ultra-Fine Jany Pen Needle 32 #400 ea 07/08/23 06/02/24 Rx gauge x 5/32" (pen needle, diabetic) levothyroxine 88 mcg tablet 88 mcg PO DAILY #90 tabs 09/20/23 06/02/24 Rx lisinopril 5 mg tablet 5 mg PO DAILY #90 tabs 01/25/24 06/02/24 Rx simvastatin 40 mg tablet 40 mg PO DAILY #90 tabs 01/25/24 06/02/24 Rx insulin glargine 100 unit/mL (3 16 unit (0.16 mL) subcut DAILY 03/02/24 06/02/24 Rx mL) subcutaneous pen (Lantus Diabetes #15 mL Solostar U-100 Insulin) meloxicam 7.5 mg tablet 7.5 mg PO DAILY PRN Low back pain 05/15/24 06/02/24 Rx #30 tabs methocarbamol 500 mg tablet 500 mg PO TID PRN muscle spasm #30 05/31/24 06/02/24 Rx tabs tramadol 50 mg tablet 50 mg PO BID PRN pain #30 tabs 06/02/24 06/02/24 Rx Patient History Medical History Proteinuria Surgical History H/O eye surgery H/O total thyroidectomy Family History Daughter Thyroid cancer Mother Thyroid cancer Diabetes Other Thyroid disorder Denies family history of Ovarian cancer Prostate cancer Myocardial infarction Breast cancer Colorectal cancer Social History Smoking Status: Never smoker Second Hand Exposure: No; Do You Dip or Chew Tobacco: No; Hx Alcohol Use: No Hx Substance Use: No Preferred Language: Malawian Communication Ability: Effective Visual Impairment: No Limitations Hearing Ability: Use of Hearing Aid Radio Station Operator Required: No Beliefs That Will Affect Care: None marital status: Current Living Situation: Spouse Current Living Situation Comment: States handicapped current occupational status: retired current occupation: homemaker Feels Safe at Home: Yes Childhood Exposure to Second-Hand Smoke: No Dental Care, Regularly: Yes Physical Activity Frequency: 3-4 Times per Week Seatbelt Use: always Sunscreen Use: Yes Assistive Devices: Cane and Walker Radiation History Diagnosis: 06/2024. Metastatic cancer. Unknown primary. Treatment: None so far. Review of Systems Review of Systems: 13 point review of systems is completed. This is negative other than what is mentioned in the history of present illness. Physical Exam Constitutional: WD/WN, vitals as above + thin Eyes: PERRL, conjunctivae normal, anicteric sclerae ENMT: Ears: no hearing impairment Neck: trachea midline, no thyromegaly Respiratory: normal respiratory effort, lungs clear to auscultation Auscultation: + diminished lung sounds Cardiovascular: RRR, no murmur, no edema Gastrointestinal (Abdomen): normal bowel sounds, soft, nontender, no hepatosplenomegaly Skin: no rashes, warm and dry Neurologic: Equal strength and coordination of upper and lower extremities. Psychiatric: A+Ox3, euthymic affect Results (Rad Onc) Imaging Studies: were reviewed and pertinent findings noted in HPI Time Spent Midlevel I spent [20] minutes in preparation for this follow up evaluation including reviewing all the clinical records, reviewing laboratory studies, pathology reports and imaging results. I spent [20] minutes with direct face to face interaction with the patient and/or family including performing a physical exam and answering all questions. I spent [15] minutes documenting this patient's visit. Attending I spent 10 minutes in preparation for this consultation including reviewing all the clinical records, reviewing laboratory studies, pathology reports and imaging results. I spent 10 minutes with direct face to face interaction with the patient and/or family including performing a physical exam and answering all questions. I spent 10 minutes documenting this patient's visit. PG Care Time/CCT Total # of Minutes Spent Total Time Spent with Patient: Total time spent is greater than 50% in coordination of care (as documented) at patient's floor/unit and/or counseling patient: [place] [address] IN/OBS CONSULT LVL 5,80M Patient Type New History Expanded Problem Focused Exam Expanded Problem Focused Medical Decision Making Moderate Complexity Diagnoses Metastatic malignant neoplasm of unknown primary site C79.9; C80.1
--- NOTE | 2024-06-06 12:40 | Pharmacy Report ---
Pharmacy Glycemic Short Note 2 - Date of Service June 06, 2024 - Glycemic Short BSG Results (Last 24 hours): 06/05/24 06/05/24 06/05/24 13:10 16:21 20:35 Glucose POC Glucose 287 H 270 H 204 H 06/06/24 06/06/24 06/06/24 01:39 06:14 07:37 Glucose 160 H POC Glucose 154 H 161 H 06/06/24 11:26 Glucose POC Glucose 270 H OUTPATIENT ANTIDIABETIC REGIMEN: * Lantus 16 units SQ HS * NovoLog 4 units with breakfast and lunch, 7 units with dinner (patient rarely using prior to admission due to decreased PO intake) * A1c 7.6% 03/2024 ASSESSMENT: 06/06 * Daxa received 26 units of insulin yesterday (Lantus 6 units + Novolog 20 units) * Persistent steroid induced hyperglycemia noted. Novolog parameters were tightened this morning. Methylprednisolone 60 mg IV decreased from q8h to daily. Lunch BSG 270 mg/dL. Will keep tighter parameters for lunch/dinner but loosen starting at HS. * Fasting BSG greatly improved compared to yesterday (255 -> 161 mg/dL). Hesitant to increase further with steroid dose decreasing and severe hypoglycemia on 06/04. 06/05 * Methylprednisolone 60 mg IV q8h scheduled started yesterday and continuing today, which was associated with a significant bump in BSG's despite minimal PO intake (5-20g/meal) * AM fasting elevated. However, possibly due to insufficient correctional insulin at HS yesterday. Hesitant to increase significantly 2nd T1DM and also severe hypoglycemia noted 06/04 AM with a dose only 2 units higher than current. Will leave Lantus as-is for now and trend * Post-prandial BSG's elevated - likely 2nd steroids. Will tighten correction factor and carb ratio, but not too aggressively 2nd T1DM and also recent severe hypoglycemia. Will add one overnight check. 06/04 * Blood sugars pretty well controlled yesterday with 8 units of Lantus (half of home dose) 06/02 evening, and no NovoLog needed as PO intake was minimal, blood sugar did rise to 246mg/dl last night, pt received 3 units correctional insulin and 8 units of Lantus again, resulting in hypoglycemia this morning, asymptomatic. * Will further reduce basal by 25%, and change goal range, and loosen NovoLog parameters to prevent hypoglycemia. * Today patient started on ATC oxycodone, and IV Solu-Medrol, which complicates glycemic control. Will continue with the adjustments above and consider titrating back up if patient becomes hyperglycemic. 06/03 * 74 yo F, presented because of abnormal labs, significant hypercalcemia with a calcium of 12.4, also concerns for T3 fracture. Patient was found to have a lung mass, CT imaging, multiple bony lesions noted as well as lung masses. Concerning for carcinoma with bony metastases. * Type 1 diabetic on 31 units of insulin per day, 8 units of basal given last night, euglycemic this morning, will continue this dose at this time while inpatient and NovoLog CF/CR. PLAN FOR INPATIENT GLYCEMIC CONTROL: * Basal insulin * Lantus 6 units SQ HS * Bolus insulin * NovoLog per scale ACHS or Q6hrs while NPO. One overnight check tonight * Goal Range: Low 120 mg/dL - High 180 mg/dL * Correction Factor: 35 mg/dL/unit * Nutritional / Prandial insulin per carb ratio of 1 unit per 12 grams CHO consumed 06/06 @ 2100: Resume correction factor of 40 mg/dL/unit and carb ratio of 1 unit for every 14 grams CHO consumed
[2024-06-06] MEDS: fentaNYL citrate PF 100 MCG/2 ML VIAL ONE (14:52)
--- NOTE | 2024-06-06 15:27 | CT Scan Report ---
CT-guided left iliac bone lesion core biopsy INDICATION: Unknown primary with multiple osseous, lung, liver lesions PROCEDURE: Procedure and risks were explained. Informed consent was obtained. A final timeout was com pleted. The patient was placed in a right decubitus position on the CT exam table. The left gluteal r egion was prepped and draped in sterile fashion. 1% lidocaine was utilized for skin anesthesia. Utilizing CT guidance, a 17-gauge coaxial needle was advanced into the left iliac bone lesion. An 18- gauge core biopsy needle was advanced, and 4 core were obtained and given to the lab. The needle was removed and Band-Aid applied. The patient tolerated the procedure well. Vital signs will be monitored on the floor. IMPRESSION: Left iliac bone lesion or biopsy as above. Performed, dictated, and signed by Be Stockton PA-C; to be co-signed by Dr. Julio Smith. Electronically signed by: Julio Smith M.D. 06/06/2024 3:39 PM
--- NOTE | 2024-06-06 17:42 | Billing Data ---
Date of Service June 06, 2024 Coding Level of Care Code 06044 SUB INP/OBS CARE
[2024-06-06] MEDS: INSULIN ASPART PER UNIT CHARGE SC SCH (20:25)
[2024-06-07] MEDS: METHOCARBAMOL 500 MG TABLET PO PRN (06:42)
[2024-06-07 06:44] LABS: Hematocrit (blood only) 33.2 % (37.0-47.0); Hemoglobin 10.9 g/dl (12.0-16.0); Mean Corpuscular Hgb Conc 32.8 g/dL (32.0-36.0); Mean Corpuscular Volume 94.3 fL (80.0-100.0); Mean Platelet Volume 9.9 fL (9.4-12.4); Platelet Count 405 K/uL (130-400); RDW Coefficient of Variation 12.6 % (11.5-14.5); RDW Standard Deviation 43.7 fL (36.4-46.3); Red Blood Count 3.52 M/uL (4.20-5.40); White Blood Count 15.08 K/ul (4.8-10.8)
[2024-06-07 06:57] LABS: BUN Creatinine Ratio 33.3 (10-20); Creatinine Clr Calc Pharmacy 60.3 ml/min; Magnesium 2.2 mg/dl (1.7-2.4); Potassium 4.1 mmol/L (3.5-5.1)
--- NOTE | 2024-06-07 07:50 | Hospitalist Progress Note ---
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 Mass in LLL. Burst fracture in T3 - Will proceed with IR guided liver biopsy as patient is medically stable - Potential bronchoscopy if this is negative (4) Diabetes mellitus type 1, controlled: Plan: Hemoglobin A1C 7.6 in March, no need to repeat Continue Lantus 16 units HS Novolog: --Goal BSG Range: Low 110 mg/dL, High 140 mg/dL --Correction Factor: 45 mg/dL/unit --Carbohydrate ratio = 15 g/unit --BSGs ACHS if eating, q6h if npo Due to T1DM will consult pharmacy for ongoing glycemic control (5) Hypothyroidism, postablative: Plan: TSH with AM labs Continue levothyroxine 88 mcg PO daily (6) Metastatic malignant neoplasm of unknown primary site: Plan: - CT AP: metastatic disease within spine and pelvis, with metastatic liver lesions, and fat containing masses in kidneys - Ortho spine on board for potential kyphoplasty and biopsy of T12 if necessary. - Will have further information after IR guided liver biopsy (7) Hyponatremia: Plan: - Most recent level 130 - Possibly dilutional from fluids - Can supplement if levels remain low Plan HTN - continue lisinopril VTE Prophylaxis - Lovenox 40mg SQ HS Diet - T1DM Disposition - admit to med/surg Admission and Anticipated Discharge Date Admission Date: June 02, 2024 Supervising Physician Co-Signing Physician Notes I personally examined the patient and verified all leigh points of history and exam, discussed case, and agree with decision making with Dr Becerra updated on MRI brain. path still pending. extensive discussion on nutrition vitals noted nad heent nc at mmm breathing unlabored no accessory muscles good effort skin no rashes no pallor or icterus metastatic cancer - primary to be determined, biopsy done 06/06 (results pending). spine - hopefully XRT first then surgical stabilization after d/w XRT and ortho/spine. continue steroids, ongoing monitoring. ongoing supportive care. severe protein/calorie malnutrition likely due to cancer - geographic information system surveyor consulted/input appreciated, extensive discussions on nutrition/goals/ways to reach goals with pt and family today otherwise as above, DVT proph - lovenox Subjective Patient seen at bedside this am resting comfortably. Aches and pains have improved with consistent pain at T3 vertebral fracture site and left sided lower back pain. Patient seen ambulating this morning and is in no acute distress. Today patient denies fever, chill, headache, nausea, vomiting, or abdominal pain. Physical Exam Physical Exam: General: patient resting comfortably, NAD, non-toxic in appearance, answers questions appropriately. Skin: warm, dry, intact HEENT: NC/AT, anicteric sclera, conjunctiva without injection, moist mucus membranes. Heart: +S1/S2, regular, no m/r/g Lungs: equal air entry bilaterally, no rales/rhonchi/wheezes Abd: +BS, soft, NT/ND Ext: warm, no clubbing/cyanosis or edema, Zahra's neg. Neuro: nonfocal, speech intact, no facial droop, moving all extremities. Results & Data Results & Data Vital Signs (Past 12 Hours) Vital Signs Temp Pulse Resp BP Pulse Ox O2 Del Method 06/07/24 07:30 36.3 C L 93 H 18 138/78 96 Room Air 06/06/24 20:18 36.8 C 88 16 132/73 95 Room Air 06/06/24 20:04 Room Air
[2024-06-07] MEDS: GADOBUTROL 65ML VIAL IV ONE (12:05)
--- NOTE | 2024-06-07 13:28 | Magnetic Resonance Report ---
MRI OF THE BRAIN WITHOUT AND WITH IV CONTRAST CLINICAL HISTORY: Metastatic disease. COMPARISON STUDY: No previous studies for comparison. TECHNIQUE: Utilizing a 1.5 Lizbeth magnet and dedicated coil, multiplanar, multiecho imaging of the br ain was performed pre and postcontrast administration. IV administration of 5 mL of Gadavist contras t was uneventful. Thin cut T1 post contrast imaging was performed. FINDINGS: There are no foci of restricted diffusion to suggest acute infarct. No acute intracranial h emorrhage, midline shift or mass effect is present. There is a 1.1 cm posterior right frontal enhanci ng focus on axial thin cut T1 postcontrast image 85 of 116. This demonstrates peripheral enhancement and there is mild associated vasogenic edema. A 0.6 cm enhancing focus within the right cerebellar he misphere on image 32 is also present. There is a dural based 1.1 cm lesion overlying the posterior le ft frontal lobe on image 100. Ventricular system is unremarkable. Basal cisterns are patent. There ar e nodular axial collections. White matter T2 hyperintense foci suggest small vessel disease. No bryce rial lesions are identified. IMPRESSION: 1. 1.1 cm rim-enhancing posterior right frontal lobe lesion with mild associated vasogenic edema and a 0.6 cm enhancing focus within the right cerebellar hemisphere. Given the clinical history, these ar e consistent with metastases. 2. 1.1 cm dural based enhancing lesion overlying the posterior left frontal lobe. This favors a menin gioma however a dural metastasis could appear similar. 3. No evidence for acute infarct. ACT 112: Negative or not required by law. Electronically signed by: Julio Smith M.D. 06/07/2024 1:27 PM
--- NOTE | 2024-06-07 18:16 | Billing Data ---
Date of Service June 07, 2024 Coding Level of Care Code 52130 SUB INP/OBS CARE
[2024-06-07] MEDS: MELOXICAM 7.5 MG TAB PO PRN (21:15)
[2024-06-07] MEDS: LANTUS PER UNIT CHARGE SQ SCH (21:16)
[2024-06-08 07:39] LABS: Hematocrit (blood only) 33.8 % (37.0-47.0); Hemoglobin 11.4 g/dl (12.0-16.0); Mean Corpuscular Hemoglobin 31.1 pg (25.0-34.0); Mean Corpuscular Hgb Conc 33.7 g/dL (32.0-36.0); Mean Corpuscular Volume 92.3 fL (80.0-100.0); Mean Platelet Volume 9.9 fL (9.4-12.4); Platelet Count 360 K/uL (130-400); RDW Coefficient of Variation 12.4 % (11.5-14.5); RDW Standard Deviation 42.7 fL (36.4-46.3); Red Blood Count 3.66 M/uL (4.20-5.40)
[2024-06-08 07:47] LABS: Creatinine Clr Calc Pharmacy 64.2 ml/min
[2024-06-08] MEDS: POLYETHYLENE (MIRALAX) 17 GM PACK PO SCH (08:26)
--- NOTE | 2024-06-08 08:28 | Orthopedic Progress Note ---
Date of Service June 08, 2024 Assessment & Plan (1) Vertebral fracture, pathological: Plan: At this time we are awaiting pathology results. Make final recommendations pending the diagnosis. Admission and Anticipated Discharge Date Admission Date: June 02, 2024 Subjective Patient is comfortable today. Denies any numbness or tingling in the upper or lower extremities. Physical Exam Physical Exam: On exam she has good strength testing. She appears comfortable. Results & Data Vital Signs (Past 12 Hours) Vital Signs Temp Pulse Resp BP Pulse Ox O2 Del Method 06/08/24 07:46 36.7 C 87 18 155/84 H 98 Room Air
--- NOTE | 2024-06-08 09:08 | Hospitalist Progress Note ---
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 (2) Hypercalcemia: Plan: - Suspected hypercalcemia of malignancy - Continue to hold calcium carbonate - reportedly not taken this for months - PTH suppressed, PTHrP still pending - Vitamin D level normal - Calcium and ionized calcium levels wnl (3) Lung mass: Plan: - CT chest: Mass in medial RLL, no thrombus appreciated. Mass in LLL. Burst fracture in T3 - Will proceed with IR guided liver biopsy as patient is medically stable - Potential bronchoscopy if this is negative (4) Diabetes mellitus type 1, controlled: Plan: Hemoglobin A1C 7.6 in March, no need to repeat Continue Lantus 16 units HS Novolog: --Goal BSG Range: Low 110 mg/dL, High 140 mg/dL --Correction Factor: 45 mg/dL/unit --Carbohydrate ratio = 15 g/unit --BSGs ACHS if eating, q6h if npo Pharmacy monitoring glycemic control (5) Hypothyroidism, postablative: Plan: TSH with AM labs Continue levothyroxine 88 mcg PO daily (6) Metastatic malignant neoplasm of unknown primary site: Plan: - CT AP: metastatic disease within spine and pelvis, with metastatic liver lesions, and fat containing masses in kidneys - Ortho spine on board for potential kyphoplasty and biopsy of T12 if necessary. - Will have further information after IR guided liver biopsy (7) Hyponatremia: Plan: - Most recent level 135 Plan HTN - continue lisinopril VTE Prophylaxis - Lovenox 40mg SQ HS Diet - T1DM Disposition - admit to med/surg Admission and Anticipated Discharge Date Admission Date: June 02, 2024 Supervising Physician Co-Signing Physician Notes I personally examined the patient and verified all leigh points of history and exam, discussed case, and agree with decision making with Dr Becerra no new complaints, awaiting path at the time i see her. vitals noted nad heent nc at mmm breathing unlabored no accessory muscles good effort skin no rashes no pallor or icterus metastatic cancer - primary to be determined, biopsy done 06/06 (results pending when i saw her - later returned as poorly differentiated carcinoma unknown primary - will d/w XRT and heme/onc and then discuss further with pt). spine - XRT to start soon. continue steroids, ongoing monitoring. ongoing supportive care. severe protein/calorie malnutrition likely due to cancer - community relations coordinator consulted/input appreciated, extensive discussions on nutrition/goals/ways to reach goals with pt and family today otherwise as above, DVT proph - lovenox Subjective Patient walking around her room when seen this morning. Patient in no acute distress and aside from the acute tenderness around her T3 fracture is not complaining of any other pain. Patient reports that she spoke to the community relations coordinator and has been making efforts to increase and improve her food intake. No acute events overnight. Physical Exam Physical Exam: General: patient resting comfortably, NAD, non-toxic in appearance, answers questions appropriately. Skin: warm, dry, intact HEENT: NC/AT, anicteric sclera, conjunctiva without injection, moist mucus membranes. Heart: +S1/S2, regular, no m/r/g Lungs: equal air entry bilaterally, no rales/rhonchi/wheezes Abd: +BS, soft, NT/ND Ext: warm, no clubbing/cyanosis or edema, Zahra's neg. Neuro: nonfocal, speech intact, no facial droop, moving all extremities. Results & Data Results & Data Vital Signs (Past 12 Hours) Vital Signs Temp Pulse Resp BP Pulse Ox O2 Del Method 06/08/24 07:46 36.7 C 87 18 155/84 H 98 Room Air Resident Activity Tracking Resident Involvement: Resident Care Provided Care Provided: Adult Hospital Medicine
--- NOTE | 2024-06-08 13:50 | Pharmacy Report ---
Pharmacy Glycemic Short Note 2 - Date of Service June 08, 2024 - Glycemic Short BSG Results (Last 24 hours): 06/07/24 06/07/24 06/07/24 16:50 20:10 20:11 POC Glucose 259 H 403 H* 334 H* 06/08/24 06/08/24 07:42 11:34 POC Glucose 168 H 255 H OUTPATIENT ANTIDIABETIC REGIMEN: * Lantus 16 units SQ HS * NovoLog 4 units with breakfast and lunch, 7 units with dinner (patient rarely using prior to admission due to decreased PO intake) * HbA1c 7.6% 03/2024 ASSESSMENT: 06/08 * Pt rec'd 16 units of insulin yesterday (5 units basal, 11 units bolus). * Novolog parameters tightened today based on BSG trend yesterday. * Lantus dose was reduced yesterday for fasting BSG below goal, but will resume higher dose this evening based on BSGs. * Pt continues to receive SoluMedrol 60mg IV daily. * Pharmacy will continue to follow and adjust regimen as indicated. 06/06 * Daxa received 26 units of insulin yesterday (Lantus 6 units + Novolog 20 units) * Persistent steroid induced hyperglycemia noted. Novolog parameters were tightened this morning. Methylprednisolone 60 mg IV decreased from q8h to daily. Lunch BSG 270 mg/dL. Will keep tighter parameters for lunch/dinner but loosen starting at HS. * Fasting BSG greatly improved compared to yesterday (255 -> 161 mg/dL). Hesitant to increase further with steroid dose decreasing and severe hypoglycemia on 06/04. 06/05 * Methylprednisolone 60 mg IV q8h scheduled started yesterday and continuing today, which was associated with a significant bump in BSG's despite minimal PO intake (5-20g/meal) * AM fasting elevated. However, possibly due to insufficient correctional insulin at HS yesterday. Hesitant to increase significantly 2nd T1DM and also severe hypoglycemia noted 06/04 AM with a dose only 2 units higher than current. Will leave Lantus as-is for now and trend * Post-prandial BSG's elevated - likely 2nd steroids. Will tighten correction factor and carb ratio, but not too aggressively 2nd T1DM and also recent severe hypoglycemia. Will add one overnight check. 06/04 * Blood sugars pretty well controlled yesterday with 8 units of Lantus (half of home dose) 06/02 evening, and no NovoLog needed as PO intake was minimal, blood sugar did rise to 246mg/dl last night, pt received 3 units correctional insulin and 8 units of Lantus again, resulting in hypoglycemia this morning, asymptomatic. * Will further reduce basal by 25%, and change goal range, and loosen NovoLog parameters to prevent hypoglycemia. * Today patient started on ATC oxycodone, and IV Solu-Medrol, which complicates glycemic control. Will continue with the adjustments above and consider titrating back up if patient becomes hyperglycemic. 06/03 * 74 yo F, presented because of abnormal labs, significant hypercalcemia with a calcium of 12.4, also concerns for T3 fracture. Patient was found to have a lung mass, CT imaging, multiple bony lesions noted as well as lung masses. Concerning for carcinoma with bony metastases. * Type 1 diabetic on 31 units of insulin per day, 8 units of basal given last night, euglycemic this morning, will continue this dose at this time while inpatient and NovoLog CF/CR. PLAN FOR INPATIENT GLYCEMIC CONTROL: * Basal insulin * Lantus 6 units SQ HS * Bolus insulin * NovoLog per scale ACHS or Q6hrs while NPO. One overnight check tonight * Goal Range: Low 120 mg/dL - High 180 mg/dL * Correction Factor: 40 mg/dL/unit * Nutritional / Prandial insulin per carb ratio of 1 unit per 12 grams CHO consumed
--- NOTE | 2024-06-08 13:58 | Communication Note ---
Date of Service: June 08, 2024 Radiation Oncology Clinical Update Note Patient is diagnosed with metastatic carcinoma of unknown primary. Case has been discussed with Dr. Robledo from orthopedic surgery. At this point there is no plan for surgical intervention. Plan is to initiate palliative radiation therapy to the thoracic spine as well as the pelvis. Treatment will start in the inpatient setting and continue in the outpatient setting as well. Continue pain management as per primary medical team. We will document when needed. Contact us with any further questions or concerns.
[2024-06-08] MEDS: POLYETHYLENE (MIRALAX) 17 GM PACK PO PRN (15:02)
--- NOTE | 2024-06-08 17:11 | Billing Data ---
Date of Service June 08, 2024 Coding Level of Care Code 20085 SUB INP/OBS CARE
[2024-06-08] MEDS: LANTUS PER UNIT CHARGE SQ SCH (21:12)
[2024-06-09 06:58] LABS: Hematocrit (blood only) 37.1 % (37.0-47.0); Hemoglobin 12.1 g/dl (12.0-16.0); Mean Corpuscular Hemoglobin 30.9 pg (25.0-34.0); Mean Corpuscular Hgb Conc 32.6 g/dL (32.0-36.0); Mean Corpuscular Volume 94.6 fL (80.0-100.0); Mean Platelet Volume 10.1 fL (9.4-12.4); Platelet Count 428 K/uL (130-400); RDW Coefficient of Variation 12.6 % (11.5-14.5); RDW Standard Deviation 43.6 fL (36.4-46.3); Red Blood Count 3.92 M/uL (4.20-5.40); White Blood Count 14.77 K/ul (4.8-10.8)
[2024-06-09 07:26] LABS: BUN Creatinine Ratio 36.5 (10-20); Calcium 7.5 mg/dl (8.6-10.3); Creatinine Clr Calc Pharmacy 63.2 ml/min; Potassium 4.1 mmol/L (3.5-5.1)
--- NOTE | 2024-06-09 15:13 | Hematology/Oncology Prog Note ---
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 I will arrange for a PET CT scan, Mediport placement, next generation gene sequencing on the cancer specimen. Our office will be in touch with the patient to initiate therapy. Plan Outpatient follow-up and initiation of cancer directed therapy Admission and Anticipated Discharge Date Admission Date: June 02, 2024 Subjective She has started palliative radiation to the spine. continues to have pain, she is very hard of hearing, family was present in the room during my visit Review of Systems Review of Systems: Continues to have back pain Constitutional: as per Subjective / HPI Eyes: as per Subjective / HPI Ear, Nose, Mouth, Throat: as per Subjective / HPI Respiratory: as per Subjective / HPI Cardiovascular: as per Subjective / HPI Gastrointestinal: as per Subjective / HPI Genitourinary: as per Subjective / HPI Musculoskeletal: as per Subjective / HPI Integumentary: as per Subjective / HPI Neurologic: as per Subjective / HPI Psychiatric: as per Subjective / HPI Physical Exam Constitutional: WD/WN, vitals as above Eyes: PERRL, conjunctivae normal, anicteric sclerae ENMT: external ear and nose normal, oropharynx normal Neck: trachea midline, no thyromegaly Respiratory: normal respiratory effort, lungs clear to auscultation Cardiovascular: RRR, no murmur, no edema Gastrointestinal (Abdomen): normal bowel sounds, soft, nontender, no hepatosplenomegaly Musculoskeletal: no cyanosis or clubbing, extremities motor strength 5/5 Skin: no rashes, warm and dry Neurologic: patellar DTR's 2+ bilat, sensation intact Results & Data Vital Signs (Past 12 Hours) Vital Signs Temp Pulse Resp BP Pulse Ox O2 Del Method 06/09/24 08:05 Room Air 06/09/24 07:40 36.8 C 67 18 106/70 98 Room Air
--- NOTE | 2024-06-09 15:17 | Hospitalist Progress Note ---
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 (2) Hypercalcemia: Plan: - Suspected hypercalcemia of malignancy - Continue to hold calcium carbonate - reportedly not taken this for months - PTH suppressed, PTHrP still pending - Vitamin D level normal - Calcium and ionized calcium levels wnl (3) Lung mass: Plan: - CT chest: Mass in medial RLL, no thrombus appreciated. Mass in LLL. Burst fracture in T3 - Will proceed with IR guided liver biopsy as patient is medically stable - Potential bronchoscopy if this is negative (4) Diabetes mellitus type 1, controlled: Plan: Hemoglobin A1C 7.6 in March, no need to repeat Continue Lantus 16 units HS Novolog: --Goal BSG Range: Low 110 mg/dL, High 140 mg/dL --Correction Factor: 45 mg/dL/unit --Carbohydrate ratio = 15 g/unit --BSGs ACHS if eating, q6h if npo Pharmacy monitoring glycemic control (5) Hypothyroidism, postablative: Plan: TSH with AM labs Continue levothyroxine 88 mcg PO daily (6) Metastatic malignant neoplasm of unknown primary site: Plan: - CT AP: metastatic disease within spine and pelvis, with metastatic liver lesions, and fat containing masses in kidneys - Ortho spine on board for potential kyphoplasty and biopsy of T12 if necessary. - Will have further information after IR guided liver biopsy (7) Hyponatremia: Plan: - Most recent level 135 Plan HTN - continue lisinopril VTE Prophylaxis - Lovenox 40mg SQ HS Diet - T1DM Disposition - admit to med/surg Admission and Anticipated Discharge Date Admission Date: June 02, 2024 Supervising Physician Co-Signing Physician Notes I personally examined the patient and verified all leigh points of history and exam, discussed case, and agree with decision making with Dr Becerra no new complaints, discussed with oncology. discussed discharge planning with pt vitals noted nad heent nc at mmm breathing unlabored no accessory muscles good effort skin no rashes no pallor or icterus metastatic cancer - primary to be determined, biopsy done 06/06 - poorly differentiated carcinoma unknown primary - for outpt management. spine - XRT, steroids (wean as outpt). ongoing supportive care. severe protein/calorie malnutrition likely due to cancer - commissioner of conciliation consulted/input appreciated, extensive discussions on nutrition/goals/ways to reach goals with pt and family otherwise as above, DVT proph - lovenox Subjective Patient walking around her room when seen this morning. Patient in no acute distress and aside from the acute tenderness around her T3 fracture is not complaining of any other pain. Patient reports that she spoke to the commissioner of conciliation and has been making efforts to increase and improve her food intake. No acute events overnight. Physical Exam Physical Exam: General: patient resting comfortably, NAD, non-toxic in appearance, answers questions appropriately. Skin: warm, dry, intact HEENT: NC/AT, anicteric sclera, conjunctiva without injection, moist mucus membranes. Heart: +S1/S2, regular, no m/r/g Lungs: equal air entry bilaterally, no rales/rhonchi/wheezes Abd: +BS, soft, NT/ND Ext: warm, no clubbing/cyanosis or edema, Zahra's neg. Neuro: nonfocal, speech intact, no facial droop, moving all extremities. Results & Data Results & Data Vital Signs (Past 12 Hours) Vital Signs Temp Pulse Resp BP Pulse Ox O2 Del Method 06/09/24 08:05 Room Air 06/09/24 07:40 36.8 C 67 18 106/70 98 Room Air Resident Activity Tracking Resident Involvement: Resident Care Provided Care Provided: Adult Hospital Medicine
--- NOTE | 2024-06-09 18:33 | Billing Data ---
Date of Service June 09, 2024 Coding Level of Care Code 68926 SUB INP/OBS CARE
[2024-06-10] MEDS: MoRPHine SULFATE 4 MG/ML 1 ML CARP\\VIAL IV PRN (06:20)
[2024-06-10 06:51] LABS: Hematocrit (blood only) 34.1 % (37.0-47.0); Hemoglobin 11.5 g/dl (12.0-16.0); Mean Corpuscular Hemoglobin 30.8 pg (25.0-34.0); Mean Corpuscular Hgb Conc 33.7 g/dL (32.0-36.0); Mean Corpuscular Volume 91.4 fL (80.0-100.0); Mean Platelet Volume 10.2 fL (9.4-12.4); Platelet Count 353 K/uL (130-400); RDW Coefficient of Variation 12.7 % (11.5-14.5); RDW Standard Deviation 41.6 fL (36.4-46.3); Red Blood Count 3.73 M/uL (4.20-5.40); White Blood Count 13.37 K/ul (4.8-10.8)
[2024-06-10 07:13] VITALS: BP 136/81; PULSE 75; RESP 18; TEMP 97.9; O2SAT 98
[2024-06-10 07:17] LABS: BUN Creatinine Ratio 37.9 (10-20); Calcium 7.2 mg/dl (8.6-10.3); Creatinine Clr Calc Pharmacy 68.6 ml/min; Potassium 4.4 mmol/L (3.5-5.1)
--- NOTE | 2024-06-10 17:44 | Billing Data ---
Date of Service June 10, 2024 Coding Level of Care Code 26843 INP/OBS DISCH >30 MIN
--- NOTE | 2024-06-10 17:44 | Discharge Summary ---
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 -spine mets - eval'd by XRT and ortho/spine - steroids for now, XRT (hopefully can wean steroids over time), no surgical stabilization needed at this time -outpt f/u w heme/onc next week, PET scan, discuss treatment options further, considerations on repeat Bx (2) Hypercalcemia: -related to malignancy. resolved w medical Rx. steroids likely helping as well. follow periodic BMP (3) Diabetes mellitus type 1, controlled: A1c 7.6 in march discussed med management/"moving target" of insulin with PO intake, changing steroid dosing, etc -see discharge instructions; right now reasonable goal range of 100-200 given circumstances (4) Hyponatremia: - Most recent level 135 Plan HTN - continue lisinopril VTE Prophylaxis - Lovenox 40mg SQ HS Diet - T1DM Disposition - admit to med/surg Notes For Next Care Provider Medication Changes From Visit oxycodone prn pain, ondansetron prn nausea, dexamethasone 8mg daily wean as possible depending on progress of Tspine cord compression/improvement with XRT Admission HPI Per Admitting Provider Daxa Montoya is a 74 year old female who presents to the ER due to abnormal outpatient XR and labs (hypercalcemia). She reports a 2 month history of worsening sciatic pain radiating to her left leg with occasional foot pain when she first gets up. More recently her pain has been upper thoracic on her back radiating between her scapulas, sharp. Also have pain in right hip on ambulation. With regards to hypercalcemia she does note loss of appetite, lethargy, bone pain and muscle weakness. No increased thirst, kidney stones, nausea, vomiting or constipation. Updated Medication List Medication Instructions Recorded Confirmed Type cyanocobalamin (vitamin B-12) 500 PO .TAKE 1 TABLET DAILY. #90 tabs 01/19/19 06/02/24 History mcg tablet lancets (OneTouch UltraSoft #50 ea 12/06/19 06/02/24 History Lancets) aspirin 81 mg tablet,delayed 81 mg PO DAILY 01/23/20 06/02/24 History release cholecalciferol (vitamin D3) 25 1,000 units PO DAILY #30 caps 02/06/20 06/02/24 Rx mcg (1,000 unit) capsule blood sugar diagnostic (OneTouch #200 ea 06/11/20 06/02/24 Rx Ultra Blue Test Strip) lancets 33 gauge (OneTouch Delica #200 ea 06/11/20 06/02/24 Rx Lancets) Novolog FlexPen U-100 Insulin 100 15 unit (0.15 mL) subcut DAILY #15 02/01/23 06/02/24 Rx unit/mL (3 mL) subcutaneous mL (insulin aspart U-100) BD Ultra-Fine Jany Pen Needle 32 #400 ea 07/08/23 06/02/24 Rx gauge x 5/32" (pen needle, diabetic) levothyroxine 88 mcg tablet 88 mcg PO DAILY #90 tabs 09/20/23 06/02/24 Rx lisinopril 5 mg tablet 5 mg PO DAILY #90 tabs 01/25/24 06/02/24 Rx simvastatin 40 mg tablet 40 mg PO DAILY #90 tabs 01/25/24 06/02/24 Rx insulin glargine 100 unit/mL (3 16 unit (0.16 mL) subcut DAILY 03/02/24 06/02/24 Rx mL) subcutaneous pen (Lantus Diabetes #15 mL Solostar U-100 Insulin) meloxicam 7.5 mg tablet 7.5 mg PO DAILY PRN Low back pain 05/15/24 06/02/24 Rx #30 tabs methocarbamol 500 mg tablet 500 mg PO TID PRN muscle spasm #30 05/31/24 06/02/24 Rx tabs dexamethasone 4 mg tablet 8 mg (2 x 4 mg) PO DAILY #60 tabs 06/09/24 Rx ondansetron 4 mg disintegrating 4 mg PO Q6H PRN nausea and 06/09/24 Rx tablet vomiting #30 tabs oxycodone 5 mg tablet 5 mg PO Q6H PRN pain #45 tabs 06/09/24 Rx Hospital Stay Data Consultations 06/02/24 19:37 ED Decision to Admit Stat 06/03/24 01:36 Consult Oncology Routine 06/04/24 07:55 Consult Pulmonology Routine 06/04/24 14:17 Consult Orthopedic Spine Surgery Routine 06/05/24 17:21 Consult Radiation Oncology Routine Diagnostic Imagining Performed 06/02/24 18:28 CT Abd and Pelvis [CT abd pelvis IV con only] Stat CT chest diagnostic w con Stat 06/02/24 18:30 CT lumbar spine w con Stat 06/05/24 06:06 CT thoracic spine wo con Urgent MR lumbar spine wo/w con Urgent MR thoracic spine wo/w con Urgent 06/06/24 09:15 IR biopsy bone superficial CT Routine 06/07/24 08:15 CT guide rad therapy chest Routine 06/07/24 08:23 MRI Brain [MR brain wo/w con] Routine Pending Results Patient Have Any Pending Studies at Discharge: No Discharge Instructions Given to Patient (Per Discharging Provider) cancer -the radiation oncology team (Dr Franks) will continue your radiation treatments and follow you closely - as the mass causing some spinal cord compression shrinks, they'll be able to guide you on slowly weaning down on the steroids -the medical oncology team (Dr Lindsey) will be in contact with you in order to get things started with chemotherapy (and hopefully immunotherapy if the follow up tumor markers suggest it would be beneficial) nutrition -as we discussed, when i see patients on a cancer journey decline and pass, about half the time it is due to the cancer, but about half the time it is due to malnutrition - i don't mean to sound so dark, but i need to make sure it's totally clear to you that getting in enough nutrition is not at all optional -your body requires about 1500 calories a day to fuel itself - this means if you come up short, even a little, you'll be getting weaker/wasting away/more susceptible to infections/less able to tolerate cancer treatments -track your calorie intake (either with pen and paper or, as we discussed, by downloading a weight loss radha like Lose It, My Fitness Pal, or Calorie Dwight and just "running it backwards") (the radha will want you to come in UNDER goal, you'll want to overshoot - also when you're setting up the radha, if it doesn't set your calorie goal at about 1500 per day, play around with your input for height and weight until it says a goal of about 1500) -as we discussed, while there is literature that people on a cancer journey do better with a plant based diet, it's even more important to get to the 1500 calories no matter how you get there. (saying the same thing differently, perfect would be 1500+ calories of nothing but fish and broccoli, but really good is 1500 calories even if it's all Boost and ice cream; 1000 calories of fish and broccoli is nowhere near good enough!) -Boost/Ensure/etc aren't "nutritional magic" they're just easy ways to get in a lot of calories - the regular ones have 220-250 calories in 8oz of fluid, the "plus" have about 350, and the extra high calorie have about 550 calories in 8oz of fluid - so where they come in handy is that it doesn't take as much effort to get in a lot of calories -similarly, while i'd want you to weigh and measure it to make sure you don't mis-estimate, a generous scoop of ice cream has about 100 calories in it -as the day goes on, if you're seeing that you're coming up short towards your "don't go to sleep until you hit 1500" calorie goal, that's where you shift over to things like Boost and ice cream to "get you across the finish line" i'm a big advocate of seeing your PCP about once a month on this journey as well. our oncologists are great, great at what they do, and pay attention really closely to how their patients are doing - but they're also really busy being focused in on treating the cancer. your PCP will be able to keep tabs on how things are going with the cancer, but more importantly they'll be able to be more laser focused on how YOU are doing (ie things like nutrition, nausea, pain, depression, etc) - so while it adds more to what will be a busy treatment schedule, i find it is well worth it for most people to add a frequent PCP appointment to the mix. diabetes -steroids are notorious for increasing your sugar, but actually while here in the hospital you've been on less total insulin than you were on at home -keep a close eye on things - a reasonable range given "all the moving parts" (steroids, cancer treatments, change in diet//need to keep in enough calories) would be sugars between about 100-200. -expect your insulin dosing to be a bit of a moving target based on how well you're eating/what you're able to eat, as well as the dosing of the steroids as we're able to wean it over time -for now use 10 units of lantus daily (down from the 16 you are listed as using at home); and take about 3-4 units of novolog at each meal. ideally checking your sugars about 4 times a day should help guide you and dr norris on how things are going (and obviously the context of sugar readings will be leigh to interpreting things - ie not just the sugar number, but what you ate/when, how much insulin you took/when, how you're feeling) please note that this change in insulin dosing is not reflected in your computer med list attached with this paperwork - this is because it's so likely your insulin doses will be changing fairly frequently that there's not really any sense in making the list look like a new, permanent change once you're starting chemo, Dr Lindsey will be checking labs pretty often, but next week have your PCP check basic labs (BMP) to ensure your calcium numbers are staying in check Total Time Total Time Spent Total Time Spent (In Minutes): >30
== END 2024-06-10 11:10 | disposition home or self-care (01) | DRG 542 ==
LOC: ED 17:41 → SUATTDRO 20:51 → 3W 20:51

== ENCOUNTER 2024-07-19 11:05 | Inpatient (IN) ==
[2024-07-19 11:47] LABS: Basophils # (auto) 0.06 K/uL (0.00-0.20); Basophils % (auto) 0.3 %; Eosinophils # (auto) 0.07 K/uL (0.00-0.50); Eosinophils % (auto) 0.4 %; Hematocrit (blood only) 37.3 % (37.0-47.0); Hemoglobin 12.6 g/dl (12.0-16.0); Immature Granulocytes # (auto) 0.32 K/uL (0.01-0.20); Immature Granulocytes % (auto) 1.8 %; Lymphocytes # (auto) 1.31 K/uL (1.20-3.40); Lymphocytes % (auto) 7.4 %; Mean Corpuscular Hemoglobin 31.7 pg (25.0-34.0); Mean Corpuscular Hgb Conc 33.8 g/dL (32.0-36.0); Mean Platelet Volume 8.7 fL (9.4-12.4); Monocytes # (auto) 1.31 K/uL (0.11-0.59); Monocytes % (auto) 7.4 %; Neutrophils # (auto) 14.75 K/uL (1.40-6.50); Neutrophils % (auto) 82.7 %; Platelet Count 674 K/uL (130-400); RDW Coefficient of Variation 13.2 % (11.5-14.5); RDW Standard Deviation 45.9 fL (36.4-46.3); Red Blood Count 3.97 M/uL (4.20-5.40); White Blood Count 17.82 K/ul (4.8-10.8)
[2024-07-19] MEDS: SODIUM CHLORIDE 0.9% 1,000 ML IV ONE ×2 (12:08→12:48)
[2024-07-19 12:12] LABS: Alanine Aminotransferase 33 U/L (7-52); Albumin Globulin Ratio 1.1 (0.9-2); Albumin Level 3.9 gm/dl (3.4-5.0); Alkaline Phosphatase 139 U/L (34-104); Anion Gap 7 (3-11); Aspartate Aminotransferase 21 U/L (13-39); BUN Creatinine Ratio 37.9 (10-20); Bilirubin,Total 0.5 mg/dl (0.2-1.0); Blood Urea Nitrogen 22 mg/dl (6-23); Calcium 13.1 mg/dl (8.6-10.3); Carbon Dioxide 29 mmol/L (21-32); Chloride 85 mmol/L (98-107); Globulin 3.6 gm/dl (2.5-4.0); Glucose 244 mg/dl (70-99(Fasting)); Sodium 121 mmol/L (136-145); Total Protein 7.5 gm/dl (6.0-8.3)
[2024-07-19 12:31] LABS: Magnesium 1.8 mg/dl (1.7-2.4)
--- NOTE | 2024-07-19 12:47 | XRay Report ---
XR chest 1V portable CLINICAL HISTORY: weakness COMPARISON STUDY: Chest CT June 02, 2024. FINDINGS: A left lower lobe mass is again noted. A right lower lobe mass is obscured on this exam. Ad ditional smaller pulmonary nodules are present. A moderate right pleural effusion has developed. Ther e is no pneumothorax. Interstitial thickening is present. Hazy right lower lung opacity is noted. Car diomediastinal silhouette is stable. There are surgical clips within the neck. IMPRESSION: 1. Interval development of a moderate right pleural effusion. 2. Interstitial thickening suggestive of mild pulmonary edema. 3. 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 ACT 112: Negative or not required by law. Electronically signed by: Julio Smith M.D. 07/19/2024 12:45 PM
--- NOTE | 2024-07-19 12:52 | Emergency Department Note ---
Impression & Plan Acute hyponatremia, Metastatic cancer, Hypercalcemia, Weakness ED Provider Note NAME: KAREN MCRAE AGE: 74 SEX: F : 1950 ARRIVES VIA: Walk-In INFORMANT: Patient ED PROVIDER(S): Timothy Franco DO CHIEF COMPLAINT: Weakness HPI: Patient is a 74-year-old female who presents to the ER with daughter at bedside for vomiting and weakness. They note the patient has metastatic lung cancer and has not started chemotherapy. Patient notes that she just does not want to eat and she does not feel like eating. She denies any headache or change in vision. Admits to diffuse weakness. No focal belly pain. No dysuria, urgency, or frequency. She was sent in for abnormal blood work including elevated calcium and a low sodium. ADDITIONAL HISTORY OBTAINED: Per HPI Chronic Medical/Social Conditions Affecting Care: Per HPI PAST MEDICAL HISTORY:See Below PAST SURGICAL HISTORY:See Below FAMILY HISTORY:See Below SOCIAL HISTORY:See Below HOME MEDICATIONS:See Below ALLERGIES:See Below VITALS:See Below PHYSICAL EXAMINATION: GENERAL: Sitting up in bed, alert, ill-appearing, disheveled EYE EXAM: normal conjunctiva. OROPHARYNX: no exudate, no erythema, lips, buccal mucosa, and tongue normal and mucous membranes are moist NECK: supple, no nuchal rigidity, no adenopathy, non-tender LUNGS: Clear to auscultation. Normal chest wall mechanics HEART: no murmurs, S1 normal and S2 normal ABDOMEN: abdomen soft, non-tender, normo-active bowel sounds, no masses, no rebound or guarding. UPPER EXTREMITIES: upper extremities are grossly normal. LOWER EXTREMITIES: No pitting edema. NEURO EXAM: Normal sensorium, cranial nerves II-XII grossly intact, normal speech, no gross weakness of arms, no gross weakness of legs. MEDICAL DECISION MAKING: Patient is a 74-year-old female who presents to the ER for stage IV metastatic lung cancer. IV was established and blood work was obtained. Patient shows a leukocytosis of 17,000. No significant anemia. BMP with a hyponatremia at 121 and a calcium elevated at 13. Glucose mildly elevated at 244. LFTs bilirubin is unremarkable. Mag at 1.8. Patient was given 2 L of IV fluids as I do favor he hyponatremia secondary to dehydration and the hypercalcemia will also be helped with this. Patient was updated at bedside. Chest x-ray showed a likely mass which has been present previously. CT abdomen pelvis showed no acute pathology. Patient daughter were updated bedside for further evaluation management treatment. Consults/Care Managements Discussions: Per MDM Triage Nursing notes reviewed. Limited review of prior medical records performed Vital Signs: reviewed and remarkable for no significant abnormalities Differential diagnosis: Differential diagnoses includes but is not limited to gastritis, peptic ulcer disease, GERD, gallbladder disease, pancreatitis, small bowel obstruction, appendicitis, diverticulitis, hernia, urinary tract infection, torsion, perforation, trauma, infectious. ER treatment provided: See below Diagnostics interpreted by me include EKG and cardiac monitoring as listed below: -Cardiac Monitoring: An order was placed for continuous cardiac monitoring. The monitor shows a rate of 99 with sinus rhythm. -ECG: none -Laboratory studies:Interpreted by me as stated above in MDM and shown below. 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) Metastatic lung cancer (metastasis from lung to other site) EKG, abnormal Neoplasm of uncertain behavior of other specified sites Hyponatremia Vertebral fracture, pathological (~06/02/24) Pathologic burst fracture T3,Pathologic fracture of S1 extending into the right sacral ala, Pathologic fracture of the left posterior iliac wing and Multiple lytic metastatic lesions as described with pathologic fractures of the T12 superior endplate Bone lesion Hypercalcemia of malignancy Compression fracture of body of thoracic vertebra (~06/02/24) Pathologic burst fracture T3 and of the T12 superior endplate Liver lesion Metastatic malignant neoplasm of unknown primary site 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 (Acute) Lung mass (Acute) Closed T3 fracture (Acute ~06/02/24) Pathologic burst fracture T3 Sciatica of left side associated with disorder of lumbar spine Gait disturbance Decreased hearing of both ears Postmenopausal state Bilateral leg cramps Health care maintenance Diabetes mellitus type 1, controlled (Chronic) Dyslipidemia (Chronic) Hx of papillary thyroid carcinoma (Acute) Hypertension (Chronic) Hypothyroidism, postablative (Chronic) Osteopenia (Acute) Sensorineural hearing loss (Acute) Vitamin D deficiency (Acute) Medical History (Updated 07/19/24 @ 14:08 by Timothy Franco DO) Hypercalcemia Serum calcium elevated Proteinuria Surgical History H/O eye surgery H/O total thyroidectomy Family History (Updated 06/28/24 @ 14:26 by Shawanda Amos RN) Daughter Thyroid cancer Cancer Mother Thyroid cancer Diabetes Sister Cancer Diabetes Other Thyroid disorder Denies family history of Ovarian cancer Prostate cancer Myocardial infarction Breast cancer Colorectal cancer Social History (Updated 06/28/24 @ 14:27 by Shawanda Amos RN) Smoking Status: Never smoker Second Hand Exposure: No; Do You Dip or Chew Tobacco: No; Hx Alcohol Use: No Hx Substance Use: No Preferred Language: Citizen Of [place] Communication Ability: Effective Visual Impairment: No Limitations Hearing Ability: Use of Hearing Aid Pre K Teacher Required: No Beliefs That Will Affect Care: None marital status: Current Living Situation: Spouse Current Living Situation Comment: States handicapped current occupational status: retired current occupation: homemaker How many Children do You have: 2 Feels Safe at Home: Yes Childhood Exposure to Second-Hand Smoke: No Diet: diabetic during the past year weight has: decreased > 10 lbs Dental Care, Regularly: Yes Physical Activity Frequency: 3-4 Times per Week Seatbelt Use: always Sunscreen Use: Yes Assistive Devices: Cane and Walker Allergies Allergies Allergy/AdvReac Type Severity Reaction Status Date / Time tetanus immune globulin Allergy Severe TETANUS Verified 07/05/24 09:08 VACCINE-HIVES aspartame AdvReac Severe MIGRAINE Verified 07/05/24 09:08 W/ [employer] Home Meds Home Medications Medication Instructions Recorded Confirmed cyanocobalamin (vitamin B-12) 500 500 mcg PO DAILY #90 tabs 01/19/19 07/19/24 mcg tablet lancets (OneTouch UltraSoft #50 ea 12/06/19 06/22/24 Lancets) aspirin 81 mg tablet,delayed 81 mg PO DAILY 01/23/20 07/19/24 release acetaminophen 500 mg oral powder 1,000 mg PO Q6H PRN Pain 07/05/24 07/19/24 packet (Tylenol Extra Strength) dexamethasone 4 mg tablet 4 mg PO UD 07/19/24 07/19/24 folic acid 1 mg tablet 1 mg PO UD 07/19/24 07/19/24 insulin glargine 100 unit/mL (3 22 unit subcut QAM Diabetes 07/19/24 07/19/24 mL) subcutaneous pen (Lantus Solostar U-100 Insulin) lorazepam 0.5 mg tablet 0.5 mg buccal UD 07/19/24 07/19/24 ondansetron 4 mg disintegrating 8 mg PO TID nausea and vomiting 07/19/24 07/19/24 tablet Previous Rx's Medication Instructions Recorded cholecalciferol (vitamin D3) 25 1,000 units PO DAILY #30 caps 02/06/20 mcg (1,000 unit) capsule blood sugar diagnostic ([employer]Touch #200 ea 06/11/20 Ultra Blue Test Strip) lancets 33 gauge (OneTouch Delica #200 ea 06/11/20 Lancets) Novolog FlexPen U-100 Insulin 100 15 unit (0.15 mL) subcut DAILY #15 02/01/23 unit/mL (3 mL) subcutaneous mL (insulin aspart U-100) levothyroxine 88 mcg tablet 88 mcg PO DAILY #90 tabs 09/20/23 lisinopril 5 mg tablet 5 mg PO DAILY #90 tabs 01/25/24 simvastatin 40 mg tablet 40 mg PO DAILY #90 tabs 01/25/24 BD Ultra-Fine Jany Pen Needle 32 #400 ea 07/11/24 gauge x 5/32" (pen needle, diabetic) Results & Data (ED) Vital Signs Vital Signs - 24 hr 07/19/24 11:10 07/19/24 12:03 07/19/24 12:12 Temperature 36.8 C Temperature Source Skin Pulse Rate 117 H 99 H Pulse Rate [Apical] Respiratory Rate 20 Respiratory Effort / Characteristics Non-Labored Respiratory Depth Normal Blood Pressure 101/60 Blood Pressure [Right Arm] Blood Pressure Mean 73 Blood Pressure Mean [Right Arm] Pulse Oximetry 98 Oxygen Delivery Method Sepsis Recent Fever Within 48 Hours No Sepsis New/Unexplained Change in Mental Status No Sepsis Action Taken by Nursing No Action Required 07/19/24 14:00 Temperature Temperature Source Pulse Rate Pulse Rate [Apical] 98 H Respiratory Rate 20 Respiratory Effort / Characteristics Respiratory Depth Normal Blood Pressure Blood Pressure [Right Arm] 131/74 Blood Pressure Mean Blood Pressure Mean [Right Arm] 93 Pulse Oximetry 97 Oxygen Delivery Method Room Air Sepsis Recent Fever Within 48 Hours Sepsis New/Unexplained Change in Mental Status Sepsis Action Taken by Nursing Laboratory Data 07/19/24 11:21 07/19/24 11:21 Lab Results 07/19/24 07/19/24 Range/Units 11:21 12:30 WBC 17.82 H (4.8-10.8) K/ul RBC 3.97 L (4.20-5.40) M/uL Hgb 12.6 (12.0-16.0) g/dl Hct 37.3 (37.0-47.0) % MCV 94.0 (80.0-100.0) fL MCH 31.7 (25.0-34.0) pg MCHC 33.8 (32.0-36.0) g/dL RDW Std Deviation 45.9 (36.4-46.3) fL RDW Coeff of Francesca 13.2 (11.5-14.5) % Plt Count 674 H (130-400) K/uL MPV 8.7 L (9.4-12.4) fL Immature Gran % (Auto) 1.8 % Neut % (Auto) 82.7 % Lymph % (Auto) 7.4 % [place] % (Auto) 7.4 % Eos % (Auto) 0.4 % Baso % (Auto) 0.3 % Neut # (Auto) 14.75 H (1.40-6.50) K/uL Lymph # (Auto) 1.31 (1.20-3.40) K/uL [place] # (Auto) 1.31 H (0.11-0.59) K/uL Eos # (Auto) 0.07 (0.00-0.50) K/uL Baso # (Auto) 0.06 (0.00-0.20) K/uL Immature Gran # (Auto) 0.32 H (0.01-0.20) K/uL PT Cancelled 10.3 INR Cancelled 0.9 APTT Cancelled 22 PTT Ratio Cancelled 0.8 Sodium 121 L (136-145) mmol/L Potassium 5.0 (3.5-5.1) mmol/L Chloride 85 L (98-107) mmol/L Carbon Dioxide 29 (21-32) mmol/L Anion Gap 7 (3-11) BUN 22 (6-23) mg/dl Creatinine 0.58 L (0.6-1.2) mg/dl Est Cr Clr Drug Dosing Not Reportable eGFR 95.49 BUN/Creatinine Ratio 37.9 H (10-20) Glucose 244 H (70-99(Fasting)) mg/dl Calcium 13.1 H* (8.6-10.3) mg/dl Magnesium 1.8 (1.7-2.4) mg/dl Total Bilirubin 0.5 (0.2-1.0) mg/dl AST 21 (13-39) U/L ALT 33 (7-52) U/L Alkaline Phosphatase 139 H (34-104) U/L Total Protein 7.5 (6.0-8.3) gm/dl Albumin 3.9 (3.4-5.0) gm/dl Globulin 3.6 (2.5-4.0) gm/dl Albumin/Globulin Ratio 1.1 (0.9-2) Administered Medications Discontinued Medications Sodium Chloride (Nss) 1,000 mls @ 999 mls/hr IV .Q1H1M ONE Stop: 07/19/24 12:35 Last Infusion: 07/19/24 13:00 Dose: Infused Documented By: Admin: 07/19/24 12:08 Dose: 999 mls/hr Documented By: NIKOLAS Sodium Chloride (Nss) 1,000 mls @ 999 mls/hr IV .Q1H1M ONE Stop: 07/19/24 13:38 Last Infusion: 07/19/24 13:52 Dose: Infused Documented By: Admin: 07/19/24 12:48 Dose: 999 mls/hr Documented By: JENNIFER Imaging Data Radiologist's Impression: Chest X-Ray 07/19/24 11:14 XR chest 1V portable CLINICAL HISTORY: weakness COMPARISON STUDY: Chest CT June 02, 2024. FINDINGS: A left lower lobe mass is again noted. A right lower lobe mass is obscured on this exam. Additional smaller pulmonary nodules are present. A moderate right pleural effusion has developed. There is no pneumothorax. Interstitial thickening is present. Hazy right lower lung opacity is noted. Cardiomediastinal silhouette is stable. There are surgical clips within the neck. IMPRESSION: 1. Interval development of a moderate right pleural effusion. 2. Interstitial thickening suggestive of mild pulmonary edema. 3. 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 ACT 112: Negative or not required by law. Electronically signed by: Julio Smith M.D. 07/19/2024 12:45 PM Abdomen/Pelvis CT 07/19/24 11:35 CT abd pelvis wo con CLINICAL HISTORY: Vomiting. Unable to keep anything down for the pa TECHNIQUE: Helical axial images of the abdomen and pelvis were obtained. Automated dose lowering techniques and/or adjustment according to patient size were utilized for this exam. This exam was performed without intravenous contrast. CT DOSE: 332.84 mGy.cm COMPARISON: Comparison is made to CT abdomen pelvis 06/02/2024 and PET/CT 06/28/2024 FINDINGS: Exam is limited by patient motion. Lower chest: Left lower lung mass is seen. Moderate right and trace left pleural effusions. Liver: Partial visualization of hepatic hypodensity is corresponding to previously noted hepatic metastasis. Gallbladder and biliary tree: No calcified gallstones. Normal caliber wall. No intra- or extrahepatic biliary ductal dilation. Pancreas: Unremarkable, no focal lesions. Spleen: Calcifications are noted in the spleen compatible with prior granulomatous disease. Adrenals: Left adrenal lesion is again seen. Kidneys and ureters: Unremarkable. Bladder: Limited evaluation due to underdistention. Reproductive organs: Unremarkable. Bowel: Multiple gas-distended loops of large bowel are seen. Lymph nodes Retroperitoneal: Unremarkable. Pelvic: Unremarkable. Mesenteric: Unremarkable. Peritoneum: Normal. Vessels: Unremarkable. Abdominal wall: Unremarkable. Bones: Numerous lytic lesions in the skeleton are again seen. IMPRESSION: 1. No evidence of small bowel obstruction. Prominent gas and stool in the colon is similar to prior exams. 2. Pulmonary, hepatic, adrenal, and bony metastatic foci are again seen, better visualized on PET/CT. ACT 112: Negative or not required by law. Electronically signed by: Domenic Crawford M.D. 07/19/2024 12:58 PM Discharge Plan Visit Data Chief Complaint: Abnormal Labs/Diagnostic Testing Stated Complaint: BLOODWORK ED Provider: Timothy Franco Discharge Problem: Acute hyponatremia, Metastatic cancer, Hypercalcemia, Weakness Forms Stand Alone Forms: [employer] Prescriptions Prescriptions: No Action Tylenol Extra Strength 500 mg powder in packet 1,000 mg PO Q6H PRN (Reason: Pain) cholecalciferol (vitamin D3) 25 mcg (1,000 unit) capsule 1,000 units PO DAILY Qty: 30 0RF (DME) OneTouch Ultra Blue Test Strip Strip See Dose Instructions .ROUTE .MEDSUPPLY Qty: 200 8RF Dose Instruction: As directed Rx Instructions: Test blood suger at least 3 times a day (DME) lancets [OneTouch Delica Lancets] 33 gauge misc See Rx Instructions .ROUTE .MEDSUPPLY Qty: 200 8RF Rx Instructions: use to test sugars 3 times a day insulin aspart U-100 [Novolog FlexPen U-100 Insulin] 100 unit/mL (3 mL) insulin pen 15 unit SQ DAILY Qty: 15 5RF Rx Instructions: 4 units breakfast, 4 units lunch, 7 units dinner. Per daughter doses depend on sugar levels. levothyroxine 88 mcg tablet 88 mcg PO DAILY Qty: 90 3RF simvastatin 40 mg tablet 40 mg PO DAILY Qty: 90 3RF lisinopril 5 mg tablet 5 mg PO DAILY Qty: 90 3RF (DME) pen needle, diabetic [BD Ultra-Fine Jany Pen Needle] 32 gauge x 5/32" needle See Dose Instructions .ROUTE .MEDSUPPLY Qty: 400 3RF Dose Instruction: As directed Rx Instructions: use one 4 x daily cyanocobalamin (vitamin B-12) 500 mcg tablet 500 mcg PO DAILY Qty: 90 (DME) lancets [OneTouch UltraSoft Lancets] Misc See Rx Instructions .ROUTE .MEDSUPPLY Qty: 50 Rx Instructions: As directed aspirin 81 mg tablet,delayed release (DR/EC) 81 mg PO DAILY dexamethasone 4 mg tablet 4 mg PO UD Rx Instructions: TAKE 1 TABLET BY MOUTH TWICE DAILY THE DAY BEFORE TREATMENT, THE DAY OF TREATMENT AND THE DAY AFTER TREATMENT folic acid 1 mg tablet 1 mg PO UD Rx Instructions: hasnt started medication yet. lorazepam 0.5 mg tablet 0.5 mg buccal UD Rx Instructions: Take 1 pill prior to each radiation treatment. ondansetron 4 mg tablet,disintegrating 8 mg PO TID Rx Instructions: per daughter, pt takes pretty consistent instead of as needed insulin glargine [Lantus Solostar U-100 Insulin] 100 unit/mL (3 mL) insulin pen 22 unit SQ QAM Referrals Referrals: Idania Carballo MD [Primary Care Provider] - Discharge Problem: Metastatic cancer Qualifiers: Area of secondary neoplastic involvement: unspecified site Qualified Code(s): C 79.9 - Secondary malignant neoplasm of unspecified site
--- NOTE | 2024-07-19 12:54 | History & Physical Report ---
Date of Service July 19, 2024 Assessment & Plan (1) Nausea and vomiting: Plan: Patient [facility] after having outpatient lab work drawn to night prior She was urgently supposed to receive brain radiation this morning, but was deemed too weak Also gradual worsening of N/V over the past month A/P CT without evidence of SBO Suspect her ongoing nausea and vomiting secondary to malignancy and hypercalcemia Significant dehydration on arrival; clinically dry and BUN/Cr ratio >30 IV antiemetics as needed IVF as needed and encourage p.o. intake as tolerated (2) Hypercalcemia of malignancy: Plan: Calcium elevated at 13.1 on arrival; suspect secondary to malignancy Vitamin D level WNL at 71.7 on 06/02/2024 NSS 1000 mL IV x 2 in the ED Continue IVF with NSS at 80 mL/hr x 1L overnight Bisphosphonates to be added if Ca remains elevated Patient prescribed Xgeva outpatient, but this was not started as it was reportedly not covered by insurance Zometa 4mg IV x 1 (3) Pleural effusion: Plan: Worsening SOB at rest and orthopnea CXR did reveal interval development of moderate right pleural effusion New from prior when compared to CXR on 06/02/24 Suspect this is main contributor COVID, Flu, RSV ordered, pending Pulmonary consult appreciated for potential therapeutic thoracentesis Hold aspirin temporarily (4) Leukocytosis: Plan: Leukocytosis at 17.82 with neutrophil predominance and left shift; afebrile Unclear etiology; she has had elevated WBCs since June, however this is slightly bumped from prior Blood cultures ordered, pending Will defer antibiotics at this time (5) Lung cancer metastatic to brain: Plan: Recent brain MRI on 06/07 revealed dural metastasis with suspected primary lung malignancy PET scan on 06/28 revealed avid pulmonary, skeletal, hepatic, and adrenal lesions consistent with metastatic disease Patient was reportedly supposed to undergo chemotherapy, but was too weak Rad Onc consult appreciated (6) Hyponatremia: Plan: Na 121 on arrival NSS 1000 mL IV x 2 Seizure precautions SIADH labs ordered, pending Trend BMP q4h for now (7) Diabetes mellitus type 1, controlled: Plan: Last A1c at 7.6% on 03/15/2024 Patient normally takes Lantus 16 units in the mornings Lantus 8u BID while inpatient Loose SSI with target BSG range 110-140mg/dL T2DM diet BSG ACHS Adjust regimen as needed Pharmacy glycemic consult appreciated Plan Disposition: Admit to PCU telemetry Full code T1DM diet (minced/moist) VTE PPx: Heparin 5000 units SQ x 1 the evening of 07/19; hold additional chemical DVT PPx prior to potential thoracentesis, and then restart after pulm eval; teds History of Present Illness Chief Complaint: Abnormal labs/diagnostic testing Primary Care Provider: Idania Carballo MD Daxa is a 74-year-old female with PMH of T1DM, dyslipidemia, papillary thyroid carcinoma, hypercalcemia of malignancy, and lung cancer metastasis to brain. She presented on 07/19 at the [facility] the cancer center for nausea, vomiting, and weakness. Patient had outpatient labs drawn last night which revealed electrolyte abnormalities, and she was told to go to the ED this morning. Patient's daughter (Marisel) is at bedside and provides additional history. Patient reports that she has had ongoing nausea and vomiting ever since she left the hospital in June, but reports an acute worsening of her nausea and vomiting that began on Monday 07/16. She was told to take 2 tablets of Zofran before every meal, and last night she was able to eat some yogurt and some cream of wheat. Besides this she has had trouble keeping down foods. She is okay dr laura carcamo and keeping her pills down. Patient took her regular morning medicine today; no vomiting this morning. She was supposed to have brain radiation this morning, and does report she took that dexamethasone 4 mg today at 1030; however, she was deemed too weak for radiation and told to go to the ED. Patient also took Tylenol this morning for her right shoulder pain. She reports that her right shoulder pain is "not too bad" right now when she is sitting still. Additionally, she has developed SOB at rest and orthopnea over the past 24 hours which have worsened. She slept in her recliner last night, and was unable to rest even propping her head up with 2 pillows. She does not use up on oxygen at baseline or CPAP at night. No sick contacts to her knowledge. She does not use any ambulatory assist devices at home. Her last BM was a couple days ago. Daughter reports that she has not drinking enough fluids at home. She denies smoking, tobacco use, recent alcohol use. No rashes or tick bites noted. Patient's vitals are stable at time admission. ED course: NSS 1000 mL IV x 2 ROS: Patient endorses generalized weakness, nausea, vomiting, conversational dyspnea, SOB at rest, orthopnea, constipation, some tingling in the right arm, and decreased urinary frequency. Patient denies fever, chills, night-sweats, dizziness, lightheadedness, headache, chest pain, abdominal pain, diarrhea, burning with urination, blood in the urine/stool, or numbness/tingling in the legs. Allergies Allergy/AdvReac Type Severity Reaction Status Date / Time tetanus immune globulin Allergy Severe TETANUS Verified 07/05/24 09:08 VACCINE-HIVES aspartame AdvReac Severe MIGRAINE Verified 07/05/24 09:08 W/ [employer]WE[employer]ENERS Home Medications Medication Instructions Recorded Confirmed Type cyanocobalamin (vitamin B-12) 500 500 mcg PO DAILY #90 tabs 01/19/19 07/19/24 History mcg tablet lancets (OneTouch UltraSoft #50 ea 12/06/19 06/22/24 History Lancets) aspirin 81 mg tablet,delayed 81 mg PO DAILY 01/23/20 07/19/24 History release cholecalciferol (vitamin D3) 25 1,000 units PO DAILY #30 caps 02/06/20 07/19/24 Rx mcg (1,000 unit) capsule blood sugar diagnostic (OneTouch #200 ea 06/11/20 06/22/24 Rx Ultra Blue Test Strip) lancets 33 gauge (OneTouch Delica #200 ea 06/11/20 06/22/24 Rx Lancets) Novolog FlexPen U-100 Insulin 100 15 unit (0.15 mL) subcut DAILY #15 02/01/23 07/19/24 Rx unit/mL (3 mL) subcutaneous mL (insulin aspart U-100) levothyroxine 88 mcg tablet 88 mcg PO DAILY #90 tabs 09/20/23 07/19/24 Rx lisinopril 5 mg tablet 5 mg PO DAILY #90 tabs 01/25/24 07/19/24 Rx simvastatin 40 mg tablet 40 mg PO DAILY #90 tabs 01/25/24 07/19/24 Rx acetaminophen 500 mg oral powder 1,000 mg PO Q6H PRN Pain 07/05/24 07/19/24 History packet (Tylenol Extra Strength) BD Ultra-Fine Jany Pen Needle 32 #400 ea 07/11/24 Rx gauge x 5/32" (pen needle, diabetic) dexamethasone 4 mg tablet 4 mg PO UD 07/19/24 07/19/24 History folic acid 1 mg tablet 1 mg PO UD 07/19/24 07/19/24 History insulin glargine 100 unit/mL (3 22 unit subcut QAM Diabetes 07/19/24 07/19/24 History mL) subcutaneous pen (Lantus Solostar U-100 Insulin) lorazepam 0.5 mg tablet 0.5 mg buccal UD 07/19/24 07/19/24 History ondansetron 4 mg disintegrating 8 mg PO TID nausea and vomiting 07/19/24 07/19/24 History tablet Past Med/Surg History Problem List (Updated 07/19/24 @ 14:09 by Fredrick Olivo PA-C) Leukocytosis Weakness (Acute) Hypercalcemia (Acute) Metastatic cancer (Acute) Acute hyponatremia (Acute) Pleural effusion Nausea and vomiting Lung cancer metastatic to brain (Chronic 06/07/24) Metastatic lung cancer (metastasis from lung to other site) EKG, abnormal Neoplasm of uncertain behavior of other specified sites Hyponatremia Vertebral fracture, pathological (~06/02/24) Pathologic burst fracture T3,Pathologic fracture of S1 extending into the right sacral ala, Pathologic fracture of the left posterior iliac wing and Multiple lytic metastatic lesions as described with pathologic fractures of the T12 superior endplate Bone lesion Hypercalcemia of malignancy Compression fracture of body of thoracic vertebra (~06/02/24) Pathologic burst fracture T3 and of the T12 superior endplate Liver lesion Metastatic malignant neoplasm of unknown primary site 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 (Acute) Lung mass (Acute) Closed T3 fracture (Acute ~06/02/24) Pathologic burst fracture T3 Sciatica of left side associated with disorder of lumbar spine Gait disturbance Decreased hearing of both ears Postmenopausal state Bilateral leg cramps Health care maintenance Diabetes mellitus type 1, controlled (Chronic) Dyslipidemia (Chronic) Hx of papillary thyroid carcinoma (Acute) Hypertension (Chronic) Hypothyroidism, postablative (Chronic) Osteopenia (Acute) Sensorineural hearing loss (Acute) Vitamin D deficiency (Acute) Medical History (Updated 07/19/24 @ 14:09 by Fredrick Olivo PA-C) Hypercalcemia Serum calcium elevated Proteinuria Surgical History H/O eye surgery H/O total thyroidectomy Family History (Updated 06/28/24 @ 14:26 by Shawanda Amos RN) Daughter Thyroid cancer Cancer Mother Thyroid cancer Diabetes Sister Cancer Diabetes Other Thyroid disorder Denies family history of Ovarian cancer Prostate cancer Myocardial infarction Breast cancer Colorectal cancer Social History (Updated 06/28/24 @ 14:27 by Shawanda Amos RN) Smoking Status: Never smoker Second Hand Exposure: No; Do You Dip or Chew Tobacco: No; Hx Alcohol Use: No Hx Substance Use: No Preferred Language: Faroese Communication Ability: Effective Visual Impairment: No Limitations Hearing Ability: Use of Hearing Aid [place] Hand Required: No Beliefs That Will Affect Care: None marital status: Current Living Situation: Spouse Current Living Situation Comment: States handicapped current occupational status: retired current occupation: homemaker How many Children do You have: 2 Other Information That Helps Us Care for You: No Feels Safe at Home: Yes Safety Concerns: Feels Safe At This Time Childhood Exposure to Second-Hand Smoke: No Diet: diabetic during the past year weight has: decreased > 10 lbs Dental Care, Regularly: Yes Physical Activity Frequency: 3-4 Times per Week Seatbelt Use: always Sunscreen Use: Yes Assistive Devices: Walker and Wheelchair Review of Systems Review of Systems: See HPI above Physical Exam Physical Exam: General: no acute distress; pleasant affect; non-toxic appearing; cachectic; cooperative HEENT: normocephalic, atraumatic; no scleral icterus; PERRLA w/ EOMs intact; vision and hearing grossly intact Neck: supple; no lymphadenopathy; trachea midline Skin: warm, dry without signs of tenting; no cyanosis; no rashes, bruising, lesions, or erythema noted CV: chest wall NTP; RRR; S1/S2 normal; no murmurs/rubs/gallops; pulses intact and symmetric at radial, DP, and PT Lungs: Mild respiratory distress; conversational dyspnea; labored breathing; symmetrical chest wall expansion; clear breath sounds across all lung lynch w/o adventitious sounds; no wheezing ABD: Soft, NTP; BS present; no rebound/guarding; no distention Back: No signs of bruising or rashes on the back; upper and lower spine are NTP MSK: no tics or fasciculations; no edema noted in the LEs b/l, nonerythematous Neuro: A&Ox3; normal mood and affect; fluent speech; no focal deficits; patient reports sensation is intact and symmetric in the LEs b/l assessed via light touch Results & Data Results & Data Vital Signs (Past 12 Hours) Vital Signs Temp Pulse Resp BP Pulse Ox 07/19/24 12:12 99 H 07/19/24 11:10 36.8 C 117 H 20 101/60 98 Laboratory Results Abnormal lab results 07/19/24 Range/Units 11:21 WBC 17.82 H (4.8-10.8) K/ul RBC 3.97 L (4.20-5.40) M/uL Plt Count 674 H (130-400) K/uL MPV 8.7 L (9.4-12.4) fL Neut # (Auto) 14.75 H (1.40-6.50) K/uL Williams # (Auto) 1.31 H (0.11-0.59) K/uL Immature Gran # (Auto) 0.32 H (0.01-0.20) K/uL Sodium 121 L (136-145) mmol/L Chloride 85 L (98-107) mmol/L Creatinine 0.58 L (0.6-1.2) mg/dl BUN/Creatinine Ratio 37.9 H (10-20) Glucose 244 H (70-99(Fasting)) mg/dl Calcium 13.1 H* (8.6-10.3) mg/dl Alkaline Phosphatase 139 H (34-104) U/L Diagnostic Findings Chest X-Ray 07/19/24 11:14 XR chest 1V portable CLINICAL HISTORY: weakness COMPARISON STUDY: Chest CT June 02, 2024. FINDINGS: A left lower lobe mass is again noted. A right lower lobe mass is obscured on this exam. Additional smaller pulmonary nodules are present. A moderate right pleural effusion has developed. There is no pneumothorax. Interstitial thickening is present. Hazy right lower lung opacity is noted. Cardiomediastinal silhouette is stable. There are surgical clips within the neck. IMPRESSION: 1. Interval development of a moderate right pleural effusion. 2. Interstitial thickening suggestive of mild pulmonary edema. 3. 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 ACT 112: Negative or not required by law. Electronically signed by: Julio Smith M.D. 07/19/2024 12:45 PM ECG Additional Comments: ECG revealed sinus tachycardia at 109 bpm; QTc 305 Code Status & VTE Plan Code Status Full code (discussed with patient and patient's daughter at bedside) VTE Prophylaxis Plan VTE Prophylaxis will be ordered: Yes Supervising Physician Co-Signing Physician Notes Patient seen and examined, chart reviewed, case discussed with Fredrick Olivo PA-C and I agree with the assessment and plan as above except as otherwise noted Labs and images reviewed 74-year-old female past medical history of metastatic poorly differentiated adenocarcinoma possible lung primary with multiple spinal mets and pathologic fracture, brain mets, suspected malignant effusion, and epidural extension of S1 tumor and progressive hypercalcemia who presents to the ER for evaluation of nausea, vomiting, progressive weakness. Calcium 13.1. Sodium 121. Leukocytosis of 17.82 on admission. Leukocytosis is associated with a granulocytic left shift. Afebrile. Patient is not hypoxic. CTA/P without acute infectious findings. No evidence of bowel obstruction Adenocarcinoma unknown primary, suspected lung carcinoma with liver and brain mets Patient is pending radiation therapy for this Patient was scheduled to begin chemotherapy and immunotherapy with Dr. Lindsey this coming week. Was referred to the ER and was told her chemotherapy treatments were canceled as she was too weak for this. Was not able to have a port placed due to being too frail and high risk of applications per daughter. Patient is currently full code and has a goal of getting better through chemo and radiation therapy. Reviewed her level of frailty, her metastatic cancer at length at the bedside with her and her daughter Marisel. Patient expresses an understanding of her metastatic cancer with brain mets, frailty, and toll that chemotherapy/immunotherapy are likely to have. She reports that her primary goal is to extend her life for her grandchildren and while she understands that all treatments may come at a cost of quality she would like to be full code and continue all measures at this time. Understands that resuscitation in her condition is a high risk of morbidity and that even the best case scenario would only bring her up best to near her current state of health with possible additional brokerage/trauma. Her and her daughter expressed appreciation for the discussion; will continue to talk about the risk/benefits/treatments as they develop and if they wish to pursue palliative care or switch to DNR/DNI will discuss this with provider. Patient with exertional dyspnea worsening in the last few days. Does have a increasing right effusion suspected malignant. Pulmonary consulted to evaluate for paracentesis. She is not on a blood thinner has not taken her aspirin in several weeks -Patient was pending radiation therapy for her brain mets. César briones consulted to follow Did review with on-call oncology. Confirmed that Xgeva while pending as outpatient had not had insurance approval and patient has not yet gotten this, we will treat with Zometa as noted below. Agree with remaining treatments including increasing Dex to 6 mg daily on admission No focal neurologic deficits on admission, though is globally weak and does have some nausea with known brain mets. Repeat CT deferred due to multiple scans and no new neurologic symptoms on admitting exam. If worsening nausea/vomiting or neurologic deficits develop --> CT-H. She is mentating normally and answers questions appropriately at time of admitting assessment Hypercalcemia Reportedly was ordered Xgeva as an outpatient, confirmed with oncology that th is had not yet had insurance approval. Will start on Zometa 4 mg daily for hypercalcemia, continue hydration Will clarify. If she is not on a bisphosphonate then will start on Zometa for hypercalcemia Continue rehydration, calcium and BMP trended Hyponatremia Patient is clinically volume contracted with dry/cracked mucous membranes and poor intake however is also at risk of SIADH due to her malignancy Urine studies pending Patient received 2 L NSS in the ER BMP trended, continue fluids until clinically euvolemic. If sodium drops below 120/continues to downtrend or workup shows SIADH then hold IV fluids and treat with 3% sodium chloride if indicated at that timeseizure precautions given both hyponatremia and brain mets. Ativan on-call if needed for seizure. PG Care Time/CCT Total # of Minutes Spent Total Time Spent with Patient: Total time spent is greater than 50% in coordination of care (as documented) at patient's floor/unit and/or counseling patient: [place] [address] INT INP/OBS CARE 3/75MIN Patient Type Established History Comprehensive Exam Comprehensive Medical Decision Making High Complexity Diagnoses Nausea and vomiting R11.2 Hypercalcemia of malignancy E83.52 Pleural effusion J90 Leukocytosis D72.829 Lung cancer metastatic to brain C34.90; C79.31 Hyponatremia E87.1 Diabetes mellitus type 1, controlled E10.9
--- NOTE | 2024-07-19 13:01 | CT Scan Report ---
CT abd pelvis wo con CLINICAL HISTORY: Vomiting. Unable to keep anything down for the pa TECHNIQUE: Helical axial images of the abdomen and pelvis were obtained. Automated dose lowering tech niques and/or adjustment according to patient size were utilized for this exam. This exam was perfor med without intravenous contrast. CT DOSE: 332.84 mGy.cm COMPARISON: Comparison is made to CT abdomen pelvis 06/02/2024 and PET/CT 06/28/2024 FINDINGS: Exam is limited by patient motion. Lower chest: Left lower lung mass is seen. Moderate right and trace left pleural effusions. Liver: Partial visualization of hepatic hypodensity is corresponding to previously noted hepatic meta stasis. Gallbladder and biliary tree: No calcified gallstones. Normal caliber wall. No intra- or extrahepatic biliary ductal dilation. Pancreas: Unremarkable, no focal lesions. Spleen: Calcifications are noted in the spleen compatible with prior granulomatous disease. Adrenals: Left adrenal lesion is again seen. Kidneys and ureters: Unremarkable. Bladder: Limited evaluation due to underdistention. Reproductive organs: Unremarkable. Bowel: Multiple gas-distended loops of large bowel are seen. Lymph nodes Retroperitoneal: Unremarkable. Pelvic: Unremarkable. Mesenteric: Unremarkable. Peritoneum: Normal. Vessels: Unremarkable. Abdominal wall: Unremarkable. Bones: Numerous lytic lesions in the skeleton are again seen. IMPRESSION: 1. No evidence of small bowel obstruction. Prominent gas and stool in the colon is similar to prior exams. 2. Pulmonary, hepatic, adrenal, and bony metastatic foci are again seen, better visualized on PET/CT . ACT 112: Negative or not required by law. Electronically signed by: Domenic Crawford M.D. 07/19/2024 12:58 PM
[2024-07-19 13:19] LABS: INR 0.9 (0.9-1.1); Partial Thromboplastin Ratio 0.8; Partial Thromboplastin Time 22 Seconds (21-31); Prothrombin Time 10.3 Seconds (9.0-12.0)
[2024-07-19 14:45] LABS: Influenza A virus by PCR Negative (Neg); Influenza B virus by PCR Negative (Neg); RSV by PCR Negative (Neg); SARS CoV2 RNA(COVID-19) Ceph NEGATIVE (Negative)
[2024-07-19] MEDS ORDERED: SODIUM CHLOR 0.9% IV ONE (14:52)
[2024-07-19] MEDS ORDERED: MINI B IV ONE (14:52)
[2024-07-19] MEDS ORDERED: ZOLEDRONIC ACID IV ONE (14:52)
[2024-07-19] MEDS ORDERED: ZOLEDRONIC ACID 4 MG in SODIUM CHLOR 0.9% MINI-B 100 ML IV ONE (14:53)
[2024-07-19] MEDS ORDERED: CARBOHYDRATES FOR HYPOGLYCEMIA PO PRN (15:34)
[2024-07-19] MEDS ORDERED: GLUCOSE 40% GEL 15 GM TUBE PO PRN (15:34)
[2024-07-19] MEDS ORDERED: GLUCAGON FOR INJ 1 MG VIAL SQ PRN (15:34)
[2024-07-19] MEDS ORDERED: DEXTROSE 50% 50 ML SYRINGE IV PRN (15:34)
[2024-07-19] MEDS ORDERED: GLUCOSE 10 TAB/TUBE PO PRN (15:34)
[2024-07-19 15:43] LABS: Anion Gap 6 (3-11); BUN Creatinine Ratio 43.2 (10-20); Blood Urea Nitrogen 19 mg/dl (6-23); Calcium 10.9 mg/dl (8.6-10.3); Carbon Dioxide 23 mmol/L (21-32); Chloride 95 mmol/L (98-107); Glucose 203 mg/dl (70-99(Fasting)); Potassium 5.1 mmol/L (3.5-5.1); Sodium 124 mmol/L (136-145)
[2024-07-19] MEDS: ZOLEDRONIC ACID 4 MG in NS MINI-B 100 ML IV STA (16:26)
[2024-07-19] MEDS: SODIUM CHLORIDE 0.9% 1,000 ML IV SCH (16:27)
[2024-07-19] MEDS ORDERED: PHARMACY GLYCEMIC MGMT CONSULT PRN (17:08)
[2024-07-19] MEDS: INSULIN ASPART PER UNIT CHARGE SC SCH (17:37)
--- NOTE | 2024-07-19 18:30 | Pharmacy Report ---
Pharmacy Glycemic Short Note 2 - Date of Service July 19, 2024 - Glycemic Short BSG Results (Last 24 hours): 07/19/24 07/19/24 07/19/24 11:21 15:03 16:19 Glucose 244 H 203 H POC Glucose 233 H OUTPATIENT ANTIDIABETIC REGIMEN: * Lantus 22 units QAM * NovoLog 4 unit QDB, 4 units QDL, 7 units QDD * HbA1c 7.6% (03/15/24) ASSESSMENT: * Daxa is 74 YOF admitted with nausea and vomiting with a history of type 1 diabetes mellitus and metastatic malignancies with hypercalcemia noted on admission. Pharmacy has been consulted to assist with glycemic management. * BSG upon admission over 200, was pretreating for radiation with oral dexamethasone 4mg which was taken this morning per ELVIA Peters, also took Lantus 22 units this AM. * NovoLog initiated with loose parameters and higher goal range similar to home basal dosing due to nausea and vomitting and poor PO intake. Will add overnight checks to ensure coverage and prevent hypoglycemia. PLAN FOR INPATIENT GLYCEMIC CONTROL: * Hold outpatient oral diabetes medications * Basal insulin * Lantus 22 units SQ this AM HOME HELP AIDE, reassess basal in AM * Bolus insulin * NovoLog per scale ACHS or Q6hrs while NPO * Goal Range: Low 140 mg/dL - High 180 mg/dL * Correction Factor: 50 mg/dL/unit * Nutritional / Prandial insulin per carb ratio of 1 unit per 20 grams CHO consumed
[2024-07-19 20:27] LABS: BUN Creatinine Ratio 40.4 (10-20); Creatinine Clr Calc Pharmacy 76.7 ml/min; Potassium 5.3 mmol/L (3.5-5.1)
[2024-07-19] MEDS ORDERED: HEPARIN SOD 5,000 UNIT/0.5 ML VIAL SQ SCH (21:00)
[2024-07-19] MEDS: HEPARIN SOD 5,000 UNIT/0.5 ML VIAL SQ ONE (22:06)
[2024-07-20] MEDS: INSULIN ASPART PER UNIT CHARGE SC SCH (01:09)
--- NOTE | 2024-07-20 05:54 | Electrocardiogram Report ---
Test Reason : Blood Pressure : */* mmHG Vent. Rate : 109 BPM Atrial Rate : 109 BPM P-R Int : 150 ms QRS Dur : 66 ms QT Int : 286 ms P-R-T Axes : 58 -7 76 degrees QTcB Int : 385 ms Sinus tachycardia Septal infarct (cited on or before 02-Jun-2024) Nonspecific T wave abnormality Abnormal ECG When compared with ECG of 02-Jun-2024 17:59, Premature atrial complexes are no longer Present Questionable change in initial forces of Septal leads Nonspecific T wave abnormality, worse in Lateral leads Confirmed by Luis Nayak ([id number]) on 07/20/2024 5:53:58 AM Referred By: REFERRED SELF Confirmed By: Luis Nayak
[2024-07-20] MEDS: LEVOTHYROXINE SODIUM 88 MCG TABLET PO SCH (06:17)
[2024-07-20 07:22] LABS: Basophils # (auto) 0.03 K/uL (0.00-0.20); Basophils % (auto) 0.2 %; Eosinophils # (auto) 0.01 K/uL (0.00-0.50); Eosinophils % (auto) 0.1 %; Hematocrit (blood only) 30.6 % (37.0-47.0); Hemoglobin 10.1 g/dl (12.0-16.0); Immature Granulocytes # (auto) 0.26 K/uL (0.01-0.20); Immature Granulocytes % (auto) 1.5 %; Lymphocytes # (auto) 0.72 K/uL (1.20-3.40); Mean Corpuscular Hemoglobin 31.4 pg (25.0-34.0); Mean Platelet Volume 8.9 fL (9.4-12.4); Monocytes # (auto) 1.39 K/uL (0.11-0.59); Monocytes % (auto) 7.8 %; Neutrophils # (auto) 15.39 K/uL (1.40-6.50); Neutrophils % (auto) 86.4 %; Platelet Count 548 K/uL (130-400); RDW Coefficient of Variation 13.2 % (11.5-14.5); RDW Standard Deviation 46.2 fL (36.4-46.3); Red Blood Count 3.22 M/uL (4.20-5.40)
[2024-07-20 07:48] LABS: BUN Creatinine Ratio 38.5 (10-20); Calcium 10.6 mg/dl (8.6-10.3); Creatinine Clr Calc Pharmacy 98.2 ml/min; Potassium 4.9 mmol/L (3.5-5.1)
[2024-07-20] MEDS: ONDANSETRON INJ 2 MG/ML 2 ML VIAL IV PRN (08:15)
[2024-07-20] MEDS: SIMVASTATIN 40 MG TAB PO SCH (08:16)
[2024-07-20] MEDS: lisinopril 5 MG TAB PO SCH (08:16)
[2024-07-20] MEDS ORDERED: LANTUS PER UNIT CHARGE SQ SCH (09:00)
[2024-07-20] MEDS: LANTUS PER UNIT CHARGE SC SCH (09:16)
--- NOTE | 2024-07-20 09:47 | Radiation OncologyConsultation ---
Date of Consultation July 20, 2024 Assessment & Plan (1) Lung cancer metastatic to brain: Plan ATTENDING ADDENDUM Assessment: Ms. Live is a 74-year-old female with a recent diagnosis of metastatic adenocarcinoma of unknown primary. The patient previously received a course of palliative radiation therapy to the thoracic spine and pelvis which completed on 06/21/2024. In the interim, the patient has been seen by Dr. Lindsey who is working to develop a potential treatment strategy plan for the patient. The patient was found to have asymptomatic brain metastasis on MRI of the brain and the decision was made to proceed with fractionated stereotactic radiosur norma. The patient was scheduled to start radiation therapy in the outpatient setting this week however the patient has been admitted to the hospital for unrelated medical issues. We have been asked to evaluate the patient to comment on radiation therapy. Plan: 1. Radiation therapy on hold until patient is medically stable. Patient may start treatment in the inpatient setting or outpatient setting depending on scheduling and machine availability. 2. We will continue to follow the patient and document as needed. 3. Please call us any further questions or concerns. History of Present Illness Reason for Consultation: Brain metastasis Requesting Physician: Daniel Galdamez MD Attending Physician: Daniel Galdamez MD History of Present Illness 06/02/2024. Emergency room evaluation with multiple radiologic studies. 06/02/2024. X-ray of ribs and chest. 1. 4 cm mass-like left lower lobe opacity. This is worrisome for a lung neoplas m. A CT of the chest is recommended for further evaluation. This finding will be called/faxed to the ordering provider at time of dictation. 2. 1.2 cm right midlung nodule which can be assessed on follow-up CT. 3. No pneumothorax. No acute right-sided rib fractures identified. 06/02/2024. CT of the thoracic spine. 1. 4 cm mass-like left lower lobe opacity. This is worrisome for a lung neoplasm. CT of the chest is recommended for further evaluation. 2. Upper thoracic spine fracture, possibly T3, as described above. 70% loss of vertebral body height with possible underlying erosion. A pathologic fracture cannot be excluded. This can be assessed on the chest CT. Addendum 1. T3 shows evidence of pathologic compression fracture with underlying osteolytic mass lesion causing retro-population compressing theca and causing bilateral foraminal stenosis , suggestive of metastatic deposit , needs further MRI with contrast assessment. 2. Focal lytic lesion in T10 and T11 vertebral bodies. Another T12 osteolytic vertebral body lesion. Likely metastatic in origin. 3. Mild spondylosis of the thoracic spine is seen. 4. Consolidation in the right lower lobe in the medial location measuring approximately 4.8 x 3.7 cm. This may represent neoplastic etiology. Clinical correlation and further evaluation is recommended. 5. Mild bilateral pleural effusion. 06/02/2024. CT of the abdomen and pelvis. 1. Osseous metastatic disease within the spine and pelvis. Pathologic fractures involving the left iliac bone and S1 vertebral body. 2. A few lesions in the liver suspicious for metastatic disease. 3. Areas of decreased enhancement within the left renal cortex potentially representing pyelonephritis. Correlate clinically. 4. Fat-containing mass between the superior pole of the left kidney in the left adrenal gland measuring 4.4 x 3.4 cm. 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 5. Large colonic stool burden consistent with constipation. No obstruction. 06/02/2024. CT of the chest. 1. Mass in the medial right lower lobe measuring 4.2 x 8.0 x 4.4 cm. Right lower lobe collapse and tumor thrombus in the right lower lobe from this mass. No bland thrombus or heart strain. 2. Mass in the left lower lobe measuring 3.7 x 3.1 x 4.6 cm. 3. A few additional scattered pulmonary nodules. One shows cavitation measuring 1.1 cm within the right middle lobe. 4. Pathologic burst fracture T3. Severe spinal canal stenosis. Severe bilateral foraminal stenosis at T2-3 and T3-4. 06/02/2024. CT of the lumbar spine. Multiple lytic metastatic lesions as described with pathologic fractures of the T12 superior endplate, S1 superior endplate, right sacral ala, and left posterior iliac wing. No spinal canal stenosis. 06/04/2024. Medical oncology consultation (Dr. Lindsey).Multiple lytic bony lesions; pathological fracture at T2. Diff diagnosis: metastatic cancer, ? Multiple myeloma Consider spine surgery eval, for possible kypho/vertebroplasty given severe spinal canal stenosis. Consider MRI spine of Thor[place] lumbar spine. If candidate for kypho/vertebro plasty then tissue may be obtained during procedure. 06/05/2024. MRI of the lumbar spine. 1. Multifocal marrow replacement consistent with metastatic disease. Pathologic fractures of T12, S1/ bilateral sacral ala and the medial left iliac bone. 2. Mild epidural extension of tumor at the S1 level which results in mild to moderate central canal stenosis. No severe stenosis within the lower thoracic, lumbar or sacral canals. Moderate narrowing of the bilateral S2-S3 neural foramen. 3. Moderate multilevel degenerative changes within the lumbar spine. 06/05/2024. Thoracic spine MRI. 1. Scattered osteolytic skeletal metastasis redemonstrated involving the thoracolumbar spine. The largest lesions within the bony thorax are again noted at T3 and T12. 2. Small pleural effusions with bibasilar pulmonary lesions. These are better seen on the chest CT from 06/02/2024. 3. Likely subacute T3 pathologic fracture. Associated epidural extension of disease at this level causes severe central canal stenosis with severe bilateral foraminal narrowing at T2-T3 and T3-T4 and mild edema of the thoracic spinal cord. 4. Mild superior endplate T12 pathologic fracture, likely subacute. 06/05/2024. Pulmonary consultation (Dr. Jerome). Carcinoma of unknown primary/lung mass/liver lesion/compression fracture of body of thoracic vertebrae. Plan for IR guided biopsy. 06/05/2024. Orthopedic consultation (Dr. Robledo). Is felt that she is not an adequate candidate for kyphoplasty stabilization. Due to the amount of bone loss noted at T3. Consider instrumented fusion but technically challenging. Will review MRIs. 06/05/2024. Orthopedic follow-up. Plan to await results of the biopsy and input of radiation oncology. Consider radiation to the T3 level versus decompression fusion pending results of biopsy. 06/06/2024. Radiation oncology consultation (Dr. Spike Franks). Patient began having pain of the left posterior leg 2 months ago. This radiated down her leg. This seemed to improve she then developed pain 1 month ago of the lower neck region. She would have pain at a level of 10 out of 10. She noticed the pain radiated around towards the upper chest bilaterally. She started taking ibuprofen. She took 800 mg every 6 hours. This would offer some mild relief. She has noticed weakness in the upper thigh area with paresthesias. She has had a very poor appetite and has lost approximately 20 pounds. She associated her loss of appetite due to the amount of pain she was having. Due to increasing back pain she presented to the emergency room. Since receiving steroid therapy the paresthesias of the upper upper thigh area has resolved. She is now giving a pain level of 4 out of 10 with current pain regimen. 06/07/2024. Brain MRI. 1. 1.1 cm rim-enhancing posterior right frontal lobe lesion with mild associated vasogenic edema and a 0.6 cm enhancing focus within the right cerebellar hemisphere. Given the clinical history, these are consistent with metastases. 2. 1.1 cm dural based enhancing lesion overlying the posterior left frontal lobe. This favors a meningioma however a dural metastasis could appear similar. 3. No evidence for acute infarct. 06/21/2024. Status post completion of palliative radiation therapy to the T- spine and pelvis. She received 3000 cGy. Treatment to each area given in 10 fractions simultaneously. 06/21/2024. Medical oncology follow-up (Dr. Lindsey). Patient will need placement of port. Caris tumor testing will be obtained. Liver biopsy for further tissue analysis. Planning carboplatin, pemetrexed and pembrolizumab. Consultation to radiation therapy due to brain lesions.. Oxycodone for pain. Will obtain dental clearance for Xgeva. Poor appetite Marinol prescribed. 06/28/2024. Surgical consultation (Dr. Rebolledo). Plans for port placement. 06/30/2024. PET/CT. FDG avid pulmonary, skeletal, hepatic and adrenal lesions consistent with metastatic disease, as described above. A definitive primary not identified although by imaging, however a primary lung malignancy would be favored. 07/05/2024. Radiation oncology follow-up. Patient was seen by surgery. She was not a candidate for port. She will be following up with Dr. Lindsey. She has been reluctant to undergo the liver biopsy that was recommended. I reviewed with her that this would give further information to help decide on treatment. She is reluctant to receive chemotherapy. I did review with her that she may be eligible for immunotherapy. Her pain is currently controlled. She is taking Tylenol. She has not been taking the oxycodone. She has returned today to begin the process of treatment for the brain. She is concerned about having the mask made. She is claustrophobic. We discussed taking a lorazepam prior to her simulation today and then she will also take it prior to her treatments. Patient was seen for port placement. Today she stated that she was not a candidate because of how things she is. 07/19/2024. Patient is scheduled to start stereotactic radiation therapy to the brain. She had developed nausea and recurrent vomiting and presented to the emergency room. She was admitted for further evaluation and treatment. Found to have hypercalcemia on admission. Increasing shortness of breath. Chest x- ray did show right pleural effusion. Pulmonary was consulted to evaluate for potential pleurocentesis. 07/19/2024. CT of the abdomen and pelvis. 1. No evidence of small bowel obstruction. Prominent gas and stool in the colon is similar to prior exams. 2. Pulmonary, hepatic, adrenal, and bony metastatic foci are again seen, better visualized on PET/CT. 07/20/2024. Radiation oncology consultation. Today she is feeling improved. She stated that the nausea resolved with receiving Zofran. She was concerned about eating her breakfast and that the nausea could return. She denies any issues with headaches. She does have shortness of breath. We discussed the need to lie flat for treatment. She felt she was being able to lie flat for her treatment. No supplemental oxygen currently being given. She denies any issues with headaches. She was previously seen and simulated. She was scheduled to begin SBRT therapy to the brain on 07/19/2024. Allergies Allergy/AdvReac Type Severity Reaction Status Date / Time tetanus immune globulin Allergy Severe TETANUS Verified 07/05/24 09:08 VACCINE-HIVES aspartame AdvReac Severe MIGRAINE Verified 07/05/24 09:08 W/ [employer] Home Medications Medication Instructions Recorded Confirmed Type cyanocobalamin (vitamin B-12) 500 500 mcg PO DAILY #90 tabs 01/19/19 07/19/24 History mcg tablet lancets (PerSay UltraSoft #50 ea 12/06/19 06/22/24 History Lancets) aspirin 81 mg tablet,delayed 81 mg PO DAILY 01/23/20 07/19/24 History release cholecalciferol (vitamin D3) 25 1,000 units PO DAILY #30 caps 02/06/20 07/19/24 Rx mcg (1,000 unit) capsule blood sugar diagnostic (Bestcakeuch #200 ea 06/11/20 06/22/24 Rx Ultra Blue Test Strip) lancets 33 gauge (OneTouch Delica #200 ea 06/11/20 06/22/24 Rx Lancets) Novolog FlexPen U-100 Insulin 100 15 unit (0.15 mL) subcut DAILY #15 02/01/23 07/19/24 Rx unit/mL (3 mL) subcutaneous mL (insulin aspart U-100) levothyroxine 88 mcg tablet 88 mcg PO DAILY #90 tabs 09/20/23 07/19/24 Rx lisinopril 5 mg tablet 5 mg PO DAILY #90 tabs 01/25/24 07/19/24 Rx simvastatin 40 mg tablet 40 mg PO DAILY #90 tabs 01/25/24 07/19/24 Rx acetaminophen 500 mg oral powder 1,000 mg PO Q6H PRN Pain 07/05/24 07/19/24 History packet (Tylenol Extra Strength) BD Ultra-Fine Jany Pen Needle 32 #400 ea 07/11/24 Rx gauge x 5/32" (pen needle, diabetic) dexamethasone 4 mg tablet 4 mg PO UD 07/19/24 07/19/24 History folic acid 1 mg tablet 1 mg PO UD 07/19/24 07/19/24 History insulin glargine 100 unit/mL (3 22 unit subcut QAM Diabetes 07/19/24 07/19/24 History mL) subcutaneous pen (Lantus Solostar U-100 Insulin) lorazepam 0.5 mg tablet 0.5 mg buccal UD 07/19/24 07/19/24 History ondansetron 4 mg disintegrating 8 mg PO TID nausea and vomiting 07/19/24 07/19/24 History tablet Patient History Medical History (Updated 07/19/24 @ 14:09 by Fredrick Olivo PA-C) Hypercalcemia Serum calcium elevated Proteinuria Surgical History H/O eye surgery H/O total thyroidectomy Family History (Updated 06/28/24 @ 14:26 by Shawanda Amos RN) Daughter Thyroid cancer Cancer Mother Thyroid cancer Diabetes Sister Cancer Diabetes Other Thyroid disorder Denies family history of Ovarian cancer Prostate cancer Myocardial infarction Breast cancer Colorectal cancer Social History (Updated 06/28/24 @ 14:27 by Shawanda Amos RN) Smoking Status: Never smoker Second Hand Exposure: No; Do You Dip or Chew Tobacco: No; Hx Alcohol Use: No Hx Substance Use: No Preferred Language: Beninese Communication Ability: Effective Visual Impairment: No Limitations Hearing Ability: Use of Hearing Aid Medical Scientific Liaison Required: No Beliefs That Will Affect Care: None marital status: Current Living Situation: Spouse Current Living Situation Comment: States handicapped current occupational status: retired current occupation: homemaker How many Children do You have: 2 Other Information That Helps Us Care for You: No Feels Safe at Home: Yes Safety Concerns: Feels Safe At This Time Childhood Exposure to Second-Hand Smoke: No Diet: diabetic during the past year weight has: decreased > 10 lbs Dental Care, Regularly: Yes Physical Activity Frequency: 3-4 Times per Week Seatbelt Use: always Sunscreen Use: Yes Assistive Devices: Walker and Wheelchair Radiation History Diagnosis: 06/2024. Metastatic cancer. Unknown primary. 06/06/2024. Biopsy left iliac bone. Metastatic poorly differentiated carcinoma. 06/07/2024. Brain metastasis. Treatment: 06/21/2024. Status post completion of palliative radiation therapy to the T- spine and pelvis. She received 3000 cGy to each area. Treatment completed in 10 fractions. Review of Systems Review of Systems: 13 point review of systems completed and are delineated in the history of present illness. Physical Exam Constitutional: WD/WN, vitals as above + thin Eyes: PERRL, conjunctivae normal, anicteric sclerae ENMT: Ears: no hearing impairment Neck: trachea midline, no thyromegaly Respiratory: normal respiratory effort, lungs clear to auscultation Auscultation: + diminished lung sounds Cardiovascular: RRR, no murmur, no edema Gastrointestinal (Abdomen): normal bowel sounds, soft, nontender, no hepatosplenomegaly Skin: no rashes, warm and dry Neurologic: Equal strength and coordination of upper and lower extremities. Psychiatric: A+Ox3, euthymic affect Time Spent Midlevel I spent [15 thank you] minutes in preparation for this follow up evaluation including reviewing all the clinical records, reviewing laboratory studies, pathology reports and imaging results. I spent [20] minutes with direct face to face interaction with the patient and/or family including performing a physical exam and answering all questions. I spent [10] minutes documenting this patient's visit. Attending I spent a total of 10 minutes regarding this patient's care including reviewing the patient's chart and reviewing the medical documentation by the midlevel provider and communicating with the primary hospitalist. PG Care Time/CCT Total # of Minutes Spent Total Time Spent with Patient: Total time spent is greater than 50% in coordination of care (as documented) at patient's floor/unit and/or counseling patient: Coding Level of Care Code 43671 IN/OBS CONSULT LVL 2,35M Diagnoses Lung cancer metastatic to brain C34.90; C79.31
--- NOTE | 2024-07-20 12:02 | Pulmonary Consultation ---
Date of Consultation July 20, 2024 Assessment & Plan (1) Pleural effusion: (2) Lung mass: (3) Neoplasm of uncertain behavior of other specified sites: Plan IMPRESSION: Unfortunate 74-year-old female with a significant history of metastatic largely undifferentiated adenocarcinoma pulmonary masses and new findings of RIGHT-sided effusion with associated dyspnea on exertion and orthopnea. Pulmonary medicine was asked to evaluate the patient for thoracentesis. RECOMMENDATIONS: 1. RIGHT-sided pleural effusion - Noted on chest x-ray as well as reviewing the CT of the abdomen/pelvis. Bedside ultrasound demonstrates modest RIGHT-sided effusion without effusion to the LEFT-sided lung field. Patient is dyspneic with conversation and reportedly dyspneic with any exertion per nursing discussion. She is not hypoxic. She has some discomfort to the RIGHT sided shoulder and occasionally to the RIGHT sided rib. She is not on anticoagulation. At this point, given her associated symptoms, she would likely benefit from trial of thoracentesis for fluid removal to see if this provides symptomatic improvement. This likely represents malignant effusion in the setting of her largely metastatic adenocarcinoma. Uncertain of the utility of fluid analysis at this juncture. I had a lengthy discussion with the patient at bedside regarding risks, benefits, and alternatives to thoracentesis procedure. Utilizing shared decision-making, she wishes to proceed with thoracentesis to see if this provides her with symptomatic improvement. We will perform thoracentesis at bedside this afternoon. 2. Lung masses - RIGHT and left lower lobe pulmonary masses appreciated on chest imaging as well as dedicated PET/CT. Likely representing metastatic process. Given the location of the RIGHT sided lesion associated effusion, concerning for likely continued and return of effusion. If she had symptomatic relief from the thoracentesis, consideration for palliative Pleurx catheter for at home drainage moving forward if patient is amenable. 3. Metastatic cancer - Unfortunately, this patient appears to be progressing poorly. [facility] as well as radiation oncology. Will defer to them for management options moving forward, however I am concerned about the patient's functional status and ability to tolerate chemotherapy. That being said, from a pulmonary perspective, we be happy to manage any palliative symptoms related to effusion moving forward. Thank you for allowing us to participate in the care of this pleasant patient. We will follow along. Supervising Physician Co-Signing Physician Notes Patient seen and examined. EMR reviewed. Agree with assessment plan as noted by BABATUNDE. Patient is known to me from prior admissions. She has widely metastatic poorly differentiated carcinoma of unclear etiology. Her performance status is quite poor. Doubt she would tolerate any systemic palliative chemotherapy. She has a small effusion. It is unclear if this is contributing to any of her symptoms or not. Proceeded with therapeutic thoracentesis with removal about 700 cc of cloudy alison fluid. Will see if she develops symptomatic improvement associated with the thoracentesis. I suspect the fluid is likely to reaccumulate given her untreated malignancy. I think the patient is a poor candidate for an indwelling pleural catheter unless she would experience significant improvement from the therapeutic thoracentesis. Would strongly recommend initiation of palliative care History of Present Illness Reason for Consultation: R-sided pleural effusion; thoracentesis Requesting Physician: Fredrick Olivo PA-C Attending Physician: Daniel Galdamez MD History of Present Illness Patient is a 74-year-old female with a significant past medical history of poorly differentiated, widely metastatic carcinoma currently managed by [facility]. During last visit to [facility], proceeding with chemotherapeutic agent was pending liver biopsy. Liver biopsy dated 07/13 demonstrates poorly differentiated adenocarcinoma of unknown primary. She was seen back in follow-up yesterday at [facility] and found to be incredibly weak, frail, and dyspneic. She was noted to have a right sided effusion. She is to be admitted for electrolyte derangements as well as possible need for SBRT of the brain. Pulmonary medicine consulted for effusion. Upon evaluation in room 2441, the patient is awake, alert, and oriented. She is frail-appearing and generally tired. She reports dyspnea for the last 2 weeks which is worse with laying flat. She feels better with sitting upright. She has at least 2 pillow orthopnea. She has not had no prior history of pulmonary lung diseases otherwise. She is not on anticoagulants. She is a lifelong non smoker. She reports pain in multiple locations including her RIGHT shoulder. She also has some discomfort at the RIGHT sided ribs. Allergies Allergy/AdvReac Type Severity Reaction Status Date / Time tetanus immune globulin Allergy Severe TETANUS Verified 07/05/24 09:08 VACCINE-HIVES aspartame AdvReac Severe MIGRAINE Verified 07/05/24 09:08 W/ [employer] SWEETENERS Home Medications Medication Instructions Recorded Confirmed Type cyanocobalamin (vitamin B-12) 500 500 mcg PO DAILY #90 tabs 01/19/19 07/19/24 History mcg tablet lancets (OneTouch UltraSoft #50 ea 12/06/19 06/22/24 History Lancets) aspirin 81 mg tablet,delayed 81 mg PO DAILY 01/23/20 07/19/24 History release cholecalciferol (vitamin D3) 25 1,000 units PO DAILY #30 caps 02/06/20 07/19/24 Rx mcg (1,000 unit) capsule blood sugar diagnostic (OneTouch #200 ea 06/11/20 06/22/24 Rx Ultra Blue Test Strip) lancets 33 gauge (OneTouch Delica #200 ea 06/11/20 06/22/24 Rx Lancets) Novolog FlexPen U-100 Insulin 100 15 unit (0.15 mL) subcut DAILY #15 02/01/23 07/19/24 Rx unit/mL (3 mL) subcutaneous mL (insulin aspart U-100) levothyroxine 88 mcg tablet 88 mcg PO DAILY #90 tabs 09/20/23 07/19/24 Rx lisinopril 5 mg tablet 5 mg PO DAILY #90 tabs 01/25/24 07/19/24 Rx simvastatin 40 mg tablet 40 mg PO DAILY #90 tabs 01/25/24 07/19/24 Rx acetaminophen 500 mg oral powder 1,000 mg PO Q6H PRN Pain 07/05/24 07/19/24 History packet (Tylenol Extra Strength) BD Ultra-Fine Jany Pen Needle 32 #400 ea 07/11/24 Rx gauge x 5/32" (pen needle, diabetic) dexamethasone 4 mg tablet 4 mg PO UD 07/19/24 07/19/24 History folic acid 1 mg tablet 1 mg PO UD 07/19/24 07/19/24 History insulin glargine 100 unit/mL (3 22 unit subcut QAM Diabetes 07/19/24 07/19/24 History mL) subcutaneous pen (Lantus Solostar U-100 Insulin) lorazepam 0.5 mg tablet 0.5 mg buccal UD 07/19/24 07/19/24 History ondansetron 4 mg disintegrating 8 mg PO TID nausea and vomiting 07/19/24 07/19/24 History tablet Patient History Medical History (Updated 07/20/24 @ 12:23 by Daniel Galdamez MD) Hypercalcemia Serum calcium elevated Proteinuria Surgical History H/O eye surgery H/O total thyroidectomy Family History (Updated 06/28/24 @ 14:26 by Shawanda Amos RN) Daughter Thyroid cancer Cancer Mother Thyroid cancer Diabetes Sister Cancer Diabetes Other Thyroid disorder Denies family history of Ovarian cancer Prostate cancer Myocardial infarction Breast cancer Colorectal cancer Social History (Updated 06/28/24 @ 14:27 by Shawanda Amos RN) Smoking Status: Never smoker Second Hand Exposure: No; Do You Dip or Chew Tobacco: No; Hx Alcohol Use: No Hx Substance Use: No Preferred Language: Turkmen Communication Ability: Effective Visual Impairment: No Limitations Hearing Ability: Use of Hearing Aid Schedule Checker Required: No Beliefs That Will Affect Care: None marital status: Current Living Situation: Spouse Current Living Situation Comment: States handicapped current occupational status: retired current occupation: homemaker How many Children do You have: 2 Other Information That Helps Us Care for You: No Feels Safe at Home: Yes Safety Concerns: Feels Safe At This Time Childhood Exposure to Second-Hand Smoke: No Diet: diabetic during the past year weight has: decreased > 10 lbs Dental Care, Regularly: Yes Physical Activity Frequency: 3-4 Times per Week Seatbelt Use: always Sunscreen Use: Yes Assistive Devices: Walker and Wheelchair Review of Systems Review of Systems: A complete 10 point review of systems was reviewed with the patient with pertinent positives and negatives as per history of present illness. All else were negative. Physical Exam Physical Exam: VITAL SIGNS Vital signs and nursing notes were reviewed. GENERAL 74-year-old female appearing her stated age who is in no acute distress. She if frail and weak appearing. SKIN Without rashes or lesions. NOSE Midline and without cyanosis. MOUTH/OROPHARYNX Without perioral cyanosis. NECK Neck with FROM. LUNGS Chest wall evaluation demonstrates normal chest wall A:P diameter. Auscultation reveals diminished breath sounds at the RIGHT sided lung base. No wheezes. CARDIAC RRR with S1/S2. No murmur, rubs, or gallops appreciated. ABDOMEN Abdominal inspection demonstrates flat abdomen. BS normoactive all four quadrants. No tenderness, palpable masses, or ascites noted. EXTREMITIES Nail clubbing not present. No peripheral cyanosis. No pretibial edema present. +3/5 radial palpated throughout. PSYCH A&Ox3 and cooperates fully with examiner. Pt is very pleasant and interacts well with examiner. Results & Data Results & Data Vital Signs (Past 12 Hours) Vital Signs Temp Pulse Resp BP Pulse Ox O2 Del Method 07/20/24 11:49 36.4 C L 106 H 16 108/70 98 Room Air 07/20/24 07:49 36.3 C L 94 H 18 150/69 H 97 Room Air 07/20/24 05:28 36.6 C 91 H 18 133/76 95 Room Air PG Care Time/CCT Total # of Minutes Spent Total Time Spent with Patient: Total time spent is greater than 50% in coordination of care (as documented) at patient's floor/unit and/or counseling patient: Coding Level of Care Code 48768 INT INP/OBS CARE 2/55MIN Diagnoses Pleural effusion J90 Lung mass R91.8 Neoplasm of uncertain behavior of other specified sites D48.7
--- NOTE | 2024-07-20 12:23 | Hospitalist Progress Note ---
Date of Service July 20, 2024 Assessment & Plan (1) Hypercalcemia of malignancy: Plan: Calcium elevated at 13.1 on arrival; suspect secondary to malignancy Vitamin D level WNL at 71.7 on 06/02/2024 NSS 1000 mL IV x 2 in the ED, as well as Zoledronic acid ca improved to 10.6 will continue to monitor (2) Nausea and vomiting: Plan: [facility] after having outpatient lab work drawn to night prior She was urgently supposed to receive brain radiation this morning, but was deemed too weak Also gradual worsening of N/V over the past month A/P CT without evidence of SBO Nausea better today (3) Pleural effusion: Plan: Worsening SOB at rest and orthopnea CXR did reveal interval development of moderate right pleural effusion New from prior when compared to CXR on 06/02/24 Suspect this is main contributor COVID, Flu, RSV ordered, pending Pulmonary consult appreciated for potential therapeutic thoracentesis Hold aspirin temporarily (4) Leukocytosis: Plan: Leukocytosis at 17.82 with neutrophil predominance and left shift; afebrile Unclear etiology; she has had elevated WBCs since June, however this is slightly bumped from prior Blood cultures ordered, pending will start empiric IV zosyn (5) Lung cancer metastatic to brain: Plan: Recent brain MRI on 06/07 revealed dural metastasis with suspected primary lung malignancy PET scan on 06/28 revealed avid pulmonary, skeletal, hepatic, and adrenal lesions consistent with metastatic disease Patient was reportedly supposed to undergo chemotherapy, but was too weak Rad Onc consult appreciated, no plans of radiation today, patient too weak (6) Hyponatremia: Plan: Na 121 on arrival NSS 1000 mL IV x 2 Seizure precautions SIADH labs ordered, pending Trend BMP q4h for now (7) Diabetes mellitus type 1, controlled: Plan: Last A1c at 7.6% on 03/15/2024 Patient normally takes Lantus 16 units in the mornings Lantus 8u BID while inpatient Loose SSI with target BSG range 110-140mg/dL T2DM diet BSG ACHS Adjust regimen as needed Pharmacy glycemic consult appreciated (8) Malnutrition: Plan: moderate malnutrition, BMI 18.9 due to cancer and poor po intake add nutritional supplements Plan Disposition: Admit to PCU telemetry Full code T1DM diet (minced/moist) VTE PPx: Heparin 5000 units SQ x 1 the evening of 07/19; hold additional jasno mical DVT PPx prior to potential thoracentesis, and then restart after pulm eval; [facility] Admission and Anticipated Discharge Date Admission Date: July 19, 2024 Subjective patient seen and examined, looks tired and frail Review of Systems Review of Systems: All systems reviewed are negative, apart from the ones contained in the history. Physical Exam Physical Exam: The patient is awake, alert and oriented 3, looks frail HEENT--PERRL, EOMI, mucous membranes and oropharynx mildly dry Neck--supple. No JVD. No bruits. Thyroid normal, trachea midline, no adenopathy. Heart--normal S1 and S2. No murmurs, rubs or gallops. Lungs--clear bilaterally, no respiratory distress, no accessory muscle use. Abdomen--normal bowel sounds and soft. Extremities--no cyanosis or clubbing. No edema. Dermatologic--normal skin turgor, normal color, no abnormal lymph nodes, no rash. Neurologic--cranial nerves II through XII grossly intact. Rheumatologic--normal range of motion. Psychiatric--normal affect. Results & Data Results & Data Vital Signs (Past 12 Hours) Vital Signs Temp Pulse Resp BP Pulse Ox O2 Del Method 07/20/24 11:49 97.5 F L 106 H 16 108/70 98 Room Air 07/20/24 07:49 97.3 F L 94 H 18 150/69 H 97 Room Air 07/20/24 05:28 97.9 F 91 H 18 133/76 95 Room Air PG Care Time/CCT Total # of Minutes Spent Total Time Spent with Patient: Total time spent is greater than 50% in coordination of care (as documented) at patient's floor/unit and/or counseling patient: Coding Level of Care Code 64129 SUB INP/OBS CARE 2/35MIN Diagnoses Hypercalcemia of malignancy E83.52 Nausea and vomiting R11.2 Pleural effusion J90 Leukocytosis D72.829 Lung cancer metastatic to brain C34.90; C79.31 Hyponatremia E87.1 Diabetes mellitus type 1, controlled E10.9 Malnutrition E46 Time Spent (min) 35
[2024-07-20] MEDS: ACETAMINOPHEN 325 MG TAB PO PRN (12:54)
[2024-07-20] MEDS: oxyCODONE/ACETAMINOPHEN 5mg/325mg TAB PO PRN (12:57)
--- NOTE | 2024-07-20 13:09 | Procedure Note ---
Procedure Note Date of Service July 20, 2024 Procedure: Therapeutic Thoracentesis Attending: Dr. Villanueva APC: César Beck PA-C Indication: RIGHT sided thoracentesis with associated dyspnea and orthopnea likely malignant in nature Anesthesia: 8.0 mL of Lidocaine 1% without epinephrine. Written consent was obtained and on the chart per attending providers. Prior to procedure, radiology films and pertinent labs were reviewed by myself and demonstrated modest RIGHT-sided effusion. A time-out was completed verifying correct patient, procedure, site, positioning, and implant(s) or special equipment if applicable. Utilizing bedside ultrasound, chest wall was evaluated for location for optimal catheter insertion. The skin was marked using gentle pressure. The RIGHT sided sided chest wall was prepped with chlorhexidine and draped in the typical sterile fashion. 8.0 mL of 1% Lidocaine without epinephrine was used to anesthetize the skin down to the pleural space. Return of pleural fluid confirmed entry into the pleural space. Lidocaine was injected into the pleural space for increased anesthetization. Scapel was used to make a small incision of the superficial tissue, parallel to the direction of the rib anatomy. The thoracentsis catheter was advanced over the rib into the pleural space. Entry into the pleural space was heralded by pleural fluid return into the syringe while under gentle aspiration. The catheter was advanced into the pleural space without resistance. Using the one-way valve system, a total of 700 mL of serosanguineous fluid was removed. Procedure was terminated due to no further fluid present. The catheter was quickly removed while patient exhaled completely. The catheter was observed to be intact. A sterile dressing was applied. Post procedure chest x-ray was ordered. Blood Loss: Minimal Complications: None Post procedure Chest X-ray was ordered and reviewed by myself which demonstrated improvement improvement of previously noted RIGHT-sided effusion. No pneumothorax appreciated per my interpretation. Radiologist's impression unavailable at the time of dictation. [facility] [place] [facility] [place] Procedure Codes (Charges) Pulmonary/Thoracic Procedure 1: Pulmonary and Thoracic: 23051 Thoracentesis w/o imaging Coding CPT Codes Pulmonary/Thoracic - Pulmonary and Thoracic: 49709 Thoracentesis w/o imaging ([id number]) Additional Codes Date of Service (PG.SURGERY)
[2024-07-20] MEDS: 4.5GM X1 IV STA (13:34)
--- NOTE | 2024-07-20 13:37 | Pharmacy Report ---
Pharmacy Glycemic Short Note 2 - Date of Service July 20, 2024 - Glycemic Short BSG Results (Last 24 hours): 07/19/24 07/19/24 07/19/24 15:03 16:19 19:56 Glucose 203 H 221 H POC Glucose 233 H 07/19/24 07/20/24 07/20/24 20:33 00:48 04:27 Glucose POC Glucose 227 H 186 H 160 H 07/20/24 07/20/24 07/20/24 05:29 07:49 11:33 Glucose 146 H POC Glucose 209 H 143 H OUTPATIENT ANTIDIABETIC REGIMEN: * Lantus 22 units QAM * NovoLog 4 unit QDB, 4 units QDL, 7 units QDD * HbA1c 7.6% (03/15/24) ASSESSMENT: 07/20 * Home lantus dose listed as 22 units qAM, however, patient verbally reports 16 units qAM, unclear if this was increased recently for oral dex use? Patient required ~50% of home dose of lantus with previous admission, unclear what true need will be. Will start with 12 units which is a 25% reduction from 16 units. * Novolog parameters based on TDD of 39 units outpatient- 45/15 for now. * One overnight check to monitor for hypo/hyperglycemica 07/19 * Daxa is 74 YOF admitted with nausea and vomiting with a history of type 1 diabetes mellitus and metastatic malignancies with hypercalcemia noted on admission. Pharmacy has been consulted to assist with glycemic management. * BSG upon admission over 200, was pretreating for radiation with oral dexamethasone 4mg which was taken this morning per ELVIA Peters, also took Lantus 22 units this AM. * NovoLog initiated with loose parameters and higher goal range similar to home basal dosing due to nausea and vomitting and poor PO intake. Will add overnight checks to ensure coverage and prevent hypoglycemia. PLAN FOR INPATIENT GLYCEMIC CONTROL: * Hold outpatient oral diabetes medications * Basal insulin * Lantus 12 units this AM, reassess in AM * Bolus insulin * NovoLog per scale ACHS or Q6hrs while NPO * Goal Range: Low 140 mg/dL - High 180 mg/dL * Correction Factor: 45 mg/dL/unit * Nutritional / Prandial insulin per carb ratio of 1 unit per 15 grams CHO consumed
--- NOTE | 2024-07-20 14:46 | XRay Report ---
XR chest 1V portable HISTORY: 74 years-old Female post thora status post thoracentesis COMPARISON: Chest radiograph 07/19/2024, PET/CT 06/28/2024 TECHNIQUE: AP view of the chest FINDINGS: Small right pleural effusion is decreased in size status post thoracentesis. No postprocedural pneumo thorax identified. Bilateral pulmonary nodules with masslike opacities of the lung bases redemonstrat ed, better evaluated on prior PET/CT. No overt pulmonary edema. Mild bibasilar atelectasis. Bones radha ear grossly intact. Surgical clips of the lower neck/upper chest. IMPRESSION: 1. Small right pleural effusion has decreased in size status post thoracentesis. 2. No postprocedural pneumothorax. 3. Please refer to the PET/CT from 06/28/2024 for additional findings. ACT 112: Negative or not required by law. The above report was generated using voice recognition software. It may contain grammatical, syntax o r spelling errors. Electronically signed by: Sagar Ball M.D. 07/20/2024 2:44 PM
[2024-07-20] MEDS ORDERED: PIPERACILLIN/TAZOBACTAM 4.5 GM/100 ML BAG IV SCH (16:00)
[2024-07-20] MEDS: PIPERACILLIN/TAZOBACTAM 4.5 GM/100 ML BAG IV SCH (18:13)
[2024-07-21] MEDS: INSULIN ASPART PER UNIT CHARGE SC ONE (01:08)
[2024-07-21 06:22] LABS: Basophils # (auto) 0.04 K/uL (0.00-0.20); Basophils % (auto) 0.3 %; Eosinophils # (auto) 0.05 K/uL (0.00-0.50); Eosinophils % (auto) 0.4 %; Hematocrit (blood only) 29.4 % (37.0-47.0); Hemoglobin 9.8 g/dl (12.0-16.0); Immature Granulocytes # (auto) 0.16 K/uL (0.01-0.20); Immature Granulocytes % (auto) 1.2 %; Lymphocytes # (auto) 1.01 K/uL (1.20-3.40); Lymphocytes % (auto) 7.6 %; Mean Corpuscular Hemoglobin 31.6 pg (25.0-34.0); Mean Corpuscular Hgb Conc 33.3 g/dL (32.0-36.0); Mean Corpuscular Volume 94.8 fL (80.0-100.0); Mean Platelet Volume 8.5 fL (9.4-12.4); Monocytes # (auto) 1.64 K/uL (0.11-0.59); Monocytes % (auto) 12.3 %; Neutrophils # (auto) 10.43 K/uL (1.40-6.50); Neutrophils % (auto) 78.2 %; Platelet Count 459 K/uL (130-400); RDW Coefficient of Variation 13.4 % (11.5-14.5); RDW Standard Deviation 46.1 fL (36.4-46.3); White Blood Count 13.33 K/ul (4.8-10.8)
[2024-07-21 06:38] LABS: BUN Creatinine Ratio 26.3 (10-20); Creatinine Clr Calc Pharmacy 64.1 ml/min; Potassium 4.4 mmol/L (3.5-5.1)
--- NOTE | 2024-07-21 08:52 | Pulmonology Progress Note ---
Date of Service July 21, 2024 Assessment & Plan (1) Pleural effusion: (2) Lung mass: (3) Neoplasm of uncertain behavior of other specified sites: Plan IMPRESSION: 74-year-old female with a significant history of metastatic largely undifferentiated adenocarcinoma admitted with weakness and failure to thrive found to have effusion on the right right status post thoracentesis with removal of 700 cc resulting in symptomatic improvement RECOMMENDATIONS: 1. RIGHT-sided pleural effusion -status postthoracentesis. Suspect malignant. Cytology was not sent as it will not alter management. Patient is at risk for reaccumulation. Should the fluid reaccumulate, serial thoracentesis, or Pleurx catheter might be appropriate. 2. Metastatic cancer -patient's performance status is poor and she has been told by medical oncology apparently that she is not a candidate for palliative chemotherapy. She is receiving radiation therapy to brain mets. Advised the patient that this cancer is going to take her life, likely sooner rather than later. I think her life expectancy can be measured in weeks. Recommended palliative care consultation and consideration for hospice for symptom control. Patient requests that this be coordinated with her and daughter. Will defer to primary admitting service. CODE STATUS will need to be addressed with family present. I see no role for CPR or mechanical ventilation in this patient with advanced widely metastatic lung cancer who is not a candidate for any therapy. Pulmonary will sign off at this point in time. Feel free to contact us with questions or concerns Admission and Anticipated Discharge Date Admission Date: July 19, 2024 Subjective Patient seen and examined. EMR reviewed. The patient is status post thoracentesis. She feels better and states she is less short of breath and having less discomfort on that side. She remains in frail condition physically Review of Systems 2 Review of Systems: All systems reviewed & are unremarkable except as noted in Subjective Physical Exam 2 Constitutional: WD/WN, vitals as above + ill appearing and + cachectic; not in distress Eyes: PERRL, conjunctivae normal, anicteric sclerae Neck: trachea midline, no thyromegaly Respiratory: + labored breathing and + tachypneic; no cough Auscultation: + diminished lung sounds Cardiovascular: RRR, no murmur, no edema Gastrointestinal (Abdomen): normal bowel sounds, soft, nontender, no hepatosplenomegaly Skin: no rashes, warm and dry Neurologic: Equal strength and coordination of upper and lower extremities. Psychiatric: A+Ox3, euthymic affect Results & Data Results & Data Vital Signs (Past 12 Hours) Vital Signs Temp Pulse Pulse Resp BP BP Pulse Ox 07/21/24 07:53 36.7 C 106 H 19 111/52 L 92 07/21/24 06:57 83 07/21/24 04:00 36.7 C 99 H 18 122/76 95 07/20/24 23:44 37.1 C 114 H 18 109/60 97 07/20/24 23:00 108 H O2 Del Method 07/21/24 07:53 Room Air 07/21/24 06:57 07/21/24 04:00 Room Air 07/20/24 23:44 Room Air 07/20/24 23:00 Laboratory Results 07/21/24 05:24 07/21/24 05:24 Diagnostic Findings Postthoracentesis chest x-ray from yesterday was independently reviewed and compared to prior film from 07/19/2024. The small to moderate-sized effusion on the right has resolved without evidence of pneumothorax. Multiple metastatic foci again identified. PG Care Time/CCT Total # of Minutes Spent Total Time Spent with Patient: Total time spent is greater than 50% in coordination of care (as documented) at patient's floor/unit and/or counseling patient: Coding Level of Care Code 02508 SUB INP/OBS CARE 2/35MIN Diagnoses Pleural effusion J90 Lung mass R91.8 Neoplasm of uncertain behavior of other specified sites D48.7
[2024-07-21] MEDS ORDERED: LANTUS PER UNIT CHARGE SC SCH (09:00)
[2024-07-21] MEDS: LANTUS PER UNIT CHARGE SC SCH (10:04)
--- NOTE | 2024-07-21 11:53 | Palliative Care Consultation ---
Date of Consultation July 21, 2024 Assessment & Plan (1) Anxiety associated with cancer diagnosis: Ativan 0.5mg IV q6h prn (2) Anxiety associated with dying process: (3) Dyspnea and respiratory abnormalities: MS IV 1,g Q4h prn (4) Weakness generalized: (5) Palliative care by specialist: Introduced Palliative Medicine and explained our role in patient's care. Patient and/or family were receptive to palliative services for goals of care discussions. Reviewed we are different from hospice, a home health nurse visiting service. (6) Advanced care planning/counseling discussion: I had a face to face 45min ACP meeting at bedside with Daxa Guadalupe and had her daughter Marisel join us by phone at pt request. Daxa tells me she knows her cancer is "bad, and it isn't curable, I know that. I don't really want chemo. I know it isn't going to cure me and I just keep feeling more and more awful." We discussed code status, the risks/benefits of CPR and overall survival being low for CPR in event of terminal illness related failure. Daxa elects DNR/DNI and daughter is in agreement, adding "we know it's just a matter of time and we want her to be comfortable no matter what." Daxa states she does not want chemo. She understands her time is short. She is interested in hospice but wants her and daughters to discuss first. The other daughter lives in [place] and is with twins due October 2024 and "a very busy work schedule so there is concern about how much she can help. There are grandchildren ranging 19-13yo. is disabled per pt. They want to discuss hospice together as a family and will reach out to care mgt when formally ready. She is willing to try radiation as long as we pre medicate for anxiety. I have written orders for pain and symptom mgt. I am compressor station engineer chief thru weekend for urgent needs and can assist by telemed. I provided Marisel with my direct contact information. (7) Lung cancer metastatic to brain: (8) Metastatic lung cancer (metastasis from lung to other site): Plan As above orders for anxiety and dyspnea mgt written with PRN orders Please page me for any urgent needs through the weekend Thank you for allowing us to participate in the ongoing care of this patient. Please page with any additional concerns. 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 Lindsey/oncology apparently that she is not a candidate for palliative chemotherapy For Oncology Patients: Patient's Palliative Prognostic Score (PaP) Score = 15 points/Interpretation:30-day survival probability <30% Patient's Palliative Prognostic Index (PPI) Score = 8.5 points Allergies Allergy/AdvReac Type Severity Reaction Status Date / Time tetanus immune globulin Allergy Severe TETANUS Verified 07/05/24 09:08 VACCINE-HIVES aspartame AdvReac Severe MIGRAINE Verified 07/05/24 09:08 W/ ARTIFICIAL SWEETENERS Home Medications Medication Instructions Recorded Confirmed Type cyanocobalamin (vitamin B-12) 500 500 mcg PO DAILY #90 tabs 01/19/19 07/19/24 History mcg tablet lancets (OneTouch UltraSoft #50 ea 12/06/19 06/22/24 History Lancets) aspirin 81 mg tablet,delayed 81 mg PO DAILY 01/23/20 07/19/24 History release cholecalciferol (vitamin D3) 25 1,000 units PO DAILY #30 caps 02/06/20 07/19/24 Rx mcg (1,000 unit) capsule blood sugar diagnostic (OneTouch #200 ea 06/11/20 06/22/24 Rx Ultra Blue Test Strip) lancets 33 gauge (OneTouch Delica #200 ea 06/11/20 06/22/24 Rx Lancets) Novolog FlexPen U-100 Insulin 100 15 unit (0.15 mL) subcut DAILY #15 02/01/23 07/19/24 Rx unit/mL (3 mL) subcutaneous mL (insulin aspart U-100) levothyroxine 88 mcg tablet 88 mcg PO DAILY #90 tabs 09/20/23 07/19/24 Rx lisinopril 5 mg tablet 5 mg PO DAILY #90 tabs 01/25/24 07/19/24 Rx simvastatin 40 mg tablet 40 mg PO DAILY #90 tabs 01/25/24 07/19/24 Rx acetaminophen 500 mg oral powder 1,000 mg PO Q6H PRN Pain 07/05/24 07/19/24 History packet (Tylenol Extra Strength) BD Ultra-Fine Jany Pen Needle 32 #400 ea 07/11/24 Rx gauge x 5/32" (pen needle, diabetic) dexamethasone 4 mg tablet 4 mg PO UD 07/19/24 07/19/24 History folic acid 1 mg tablet 1 mg PO UD 07/19/24 07/19/24 History insulin glargine 100 unit/mL (3 22 unit subcut QAM Diabetes 07/19/24 07/19/24 History mL) subcutaneous pen (Lantus Solostar U-100 Insulin) lorazepam 0.5 mg tablet 0.5 mg buccal UD 07/19/24 07/19/24 History ondansetron 4 mg disintegrating 8 mg PO TID nausea and vomiting 07/19/24 07/19/24 History tablet Patient History Medical History (Updated 07/21/24 @ 13:45 by Elina Villela DNP) Hypercalcemia Serum calcium elevated Proteinuria Surgical History H/O eye surgery H/O total thyroidectomy Family History (Updated 06/28/24 @ 14:26 by Shawanda Amos RN) Daughter Thyroid cancer Cancer Mother Thyroid cancer Diabetes Sister Cancer Diabetes Other Thyroid disorder Denies family history of Ovarian cancer Prostate cancer Myocardial infarction Breast cancer Colorectal cancer Social History (Updated 06/28/24 @ 14:27 by Shawanda Amos RN) Smoking Status: Never smoker Second Hand Exposure: No; Do You Dip or Chew Tobacco: No; Hx Alcohol Use: No Hx Substance Use: No Preferred Language: Syriac Communication Ability: Effective Visual Impairment: No Limitations Hearing Ability: Use of Hearing Aid Insulator Apprentice Required: No Beliefs That Will Affect Care: None marital status: Current Living Situation: Spouse Current Living Situation Comment: States handicapped current occupational status: retired current occupation: homemaker How many Children do You have: 2 Other Information That Helps Us Care for You: No Feels Safe at Home: Yes Safety Concerns: Feels Safe At This Time Childhood Exposure to Second-Hand Smoke: No Diet: diabetic during the past year weight has: decreased > 10 lbs Dental Care, Regularly: Yes Physical Activity Frequency: 3-4 Times per Week Seatbelt Use: always Sunscreen Use: Yes Assistive Devices: None Review of Systems Review of Systems: All systems reviewed & are unremarkable except as noted in Subjective Physical Exam Physical Exam: Bitemp wasting perrla eomi's frail and chronically ill appearing cachectic Neck supple, no JVD Conversational dyspnea, inc resp effort, use of accessory muscles Lungs diminished with few satt rhonchi, intermittent dry cough tachy s1s1, Abd scaphoid, mild distension, non tender Thin extremities,, strength diminished Skin pale, diminished turgor Results & Data Vital Signs (Past 12 Hours) Vital Signs Temp Pulse Pulse Resp BP BP Pulse Ox 07/21/24 07:53 36.7 C 106 H 19 111/52 L 92 07/21/24 06:57 83 07/21/24 04:00 36.7 C 99 H 18 122/76 95 07/20/24 23:44 37.1 C 114 H 18 109/60 97 O2 Del Method 07/21/24 07:53 Room Air 07/21/24 06:57 07/21/24 04:00 Room Air 07/20/24 23:44 Room Air Laboratory Results 07/21/24 07/21/24 07/21/24 Range/Units 07:50 05:24 01:04 WBC 13.33 H (4.8-10.8) K/ul RBC 3.10 L (4.20-5.40) M/uL Hgb 9.8 L (12.0-16.0) g/dl Hct 29.4 L (37.0-47.0) % MCV 94.8 (80.0-100.0) fL MCH 31.6 (25.0-34.0) pg MCHC 33.3 (32.0-36.0) g/dL RDW Std Deviation 46.1 (36.4-46.3) fL RDW Coeff of Francesca 13.4 (11.5-14.5) % Plt Count 459 H (130-400) K/uL MPV 8.5 L (9.4-12.4) fL Immature Gran % (Auto) 1.2 % Neut % (Auto) 78.2 % Lymph % (Auto) 7.6 % [place] % (Auto) 12.3 % Eos % (Auto) 0.4 % Baso % (Auto) 0.3 % Neut # (Auto) 10.43 H (1.40-6.50) K/uL Lymph # (Auto) 1.01 L (1.20-3.40) K/uL [place] # (Auto) 1.64 H (0.11-0.59) K/uL Eos # (Auto) 0.05 (0.00-0.50) K/uL Baso # (Auto) 0.04 (0.00-0.20) K/uL Immature Gran # (Auto) 0.16 (0.01-0.20) K/uL PT INR APTT PTT Ratio Sodium 123 L (136-145) mmol/L Potassium 4.4 (3.5-5.1) mmol/L Chloride 94 L (98-107) mmol/L Carbon Dioxide 23 (21-32) mmol/L Anion Gap 6 (3-11) BUN 15 (6-23) mg/dl Creatinine 0.57 L (0.6-1.2) mg/dl Est Cr Clr Drug Dosing 64.1 eGFR 95.90 BUN/Creatinine Ratio 26.3 H (10-20) Glucose 121 H (70-99(Fasting)) mg/dl POC Glucose 114 H 137 H (70-99) mg/dl Osmolality (280-300) mOsm/kg Calcium 10.0 (8.6-10.3) mg/dl Magnesium (1.7-2.4) mg/dl Total Bilirubin (0.2-1.0) mg/dl AST (13-39) U/L ALT (7-52) U/L Alkaline Phosphatase (34-104) U/L Total Protein (6.0-8.3) gm/dl Albumin (3.4-5.0) gm/dl Globulin (2.5-4.0) gm/dl Albumin/Globulin Ratio (0.9-2) Urine Osmolality (500-800) mOsm/kg Ur Random Sodium mmol/L SARS-CoV-2 (PCR) (Negative) Influenza Type A (PCR) (Neg) Influenza Type B (PCR) (Neg) RSV (RT-PCR) (Neg) 07/20/24 07/20/24 07/20/24 Range/Units 20:36 16:23 11:33 WBC (4.8-10.8) K/ul RBC (4.20-5.40) M/uL Hgb (12.0-16.0) g/dl Hct (37.0-47.0) % MCV (80.0-100.0) fL MCH (25.0-34.0) pg MCHC (32.0-36.0) g/dL RDW Std Deviation (36.4-46.3) fL RDW Coeff of Francesca (11.5-14.5) % Plt Count (130-400) K/uL MPV (9.4-12.4) fL Immature Gran % (Auto) % Neut % (Auto) % Lymph % (Auto) % [place] % (Auto) % Eos % (Auto) % Baso % (Auto) % Neut # (Auto) (1.40-6.50) K/uL Lymph # (Auto) (1.20-3.40) K/uL [place] # (Auto) (0.11-0.59) K/uL Eos # (Auto) (0.00-0.50) K/uL Baso # (Auto) (0.00-0.20) K/uL Immature Gran # (Auto) (0.01-0.20) K/uL PT INR APTT PTT Ratio Sodium (136-145) mmol/L Potassium (3.5-5.1) mmol/L Chloride (98-107) mmol/L Carbon Dioxide (21-32) mmol/L Anion Gap (3-11) BUN (6-23) mg/dl Creatinine (0.6-1.2) mg/dl Est Cr Clr Drug Dosing eGFR BUN/Creatinine Ratio (10-20) Glucose (70-99(Fasting)) mg/dl POC Glucose 204 H 142 H 143 H (70-99) mg/dl Osmolality (280-300) mOsm/kg Calcium (8.6-10.3) mg/dl Magnesium (1.7-2.4) mg/dl Total Bilirubin (0.2-1.0) mg/dl AST (13-39) U/L ALT (7-52) U/L Alkaline Phosphatase (34-104) U/L Total Protein (6.0-8.3) gm/dl Albumin (3.4-5.0) gm/dl Globulin (2.5-4.0) gm/dl Albumin/Globulin Ratio (0.9-2) Urine Osmolality (500-800) mOsm/kg Ur Random Sodium mmol/L SARS-CoV-2 (PCR) (Negative) Influenza Type A (PCR) (Neg) Influenza Type B (PCR) (Neg) RSV (RT-PCR) (Neg) 07/20/24 07/20/24 07/20/24 Range/Units 07:49 05:29 04:27 WBC 17.80 H (4.8-10.8) K/ul RBC 3.22 L (4.20-5.40) M/uL Hgb 10.1 L (12.0-16.0) g/dl Hct 30.6 L (37.0-47.0) % MCV 95.0 (80.0-100.0) fL MCH 31.4 (25.0-34.0) pg MCHC 33.0 (32.0-36.0) g/dL RDW Std Deviation 46.2 (36.4-46.3) fL RDW Coeff of Francesca 13.2 (11.5-14.5) % Plt Count 548 H (130-400) K/uL MPV 8.9 L (9.4-12.4) fL Immature Gran % (Auto) 1.5 % Neut % (Auto) 86.4 % Lymph % (Auto) 4.0 % [place] % (Auto) 7.8 % Eos % (Auto) 0.1 % Baso % (Auto) 0.2 % Neut # (Auto) 15.39 H (1.40-6.50) K/uL Lymph # (Auto) 0.72 L (1.20-3.40) K/uL [place] # (Auto) 1.39 H (0.11-0.59) K/uL Eos # (Auto) 0.01 (0.00-0.50) K/uL Baso # (Auto) 0.03 (0.00-0.20) K/uL Immature Gran # (Auto) 0.26 H (0.01-0.20) K/uL PT INR APTT PTT Ratio Sodium 123 L (136-145) mmol/L Potassium 4.9 (3.5-5.1) mmol/L Chloride 95 L (98-107) mmol/L Carbon Dioxide 23 (21-32) mmol/L Anion Gap 5 (3-11) BUN 15 (6-23) mg/dl Creatinine 0.39 L (0.6-1.2) mg/dl Est Cr Clr Drug Dosing 98.2 eGFR 105.08 BUN/Creatinine Ratio 38.5 H (10-20) Glucose 146 H (70-99(Fasting)) mg/dl POC Glucose 209 H 160 H (70-99) mg/dl Osmolality (280-300) mOsm/kg Calcium 10.6 H (8.6-10.3) mg/dl Magnesium (1.7-2.4) mg/dl Total Bilirubin (0.2-1.0) mg/dl AST (13-39) U/L ALT (7-52) U/L Alkaline Phosphatase (34-104) U/L Total Protein (6.0-8.3) gm/dl Albumin (3.4-5.0) gm/dl Globulin (2.5-4.0) gm/dl Albumin/Globulin Ratio (0.9-2) Urine Osmolality (500-800) mOsm/kg Ur Random Sodium mmol/L SARS-CoV-2 (PCR) (Negative) Influenza Type A (PCR) (Neg) Influenza Type B (PCR) (Neg) RSV (RT-PCR) (Neg) 07/20/24 07/19/24 07/19/24 Range/Units 00:48 Unknown 20:33 WBC (4.8-10.8) K/ul RBC (4.20-5.40) M/uL Hgb (12.0-16.0) g/dl Hct (37.0-47.0) % MCV (80.0-100.0) fL MCH (25.0-34.0) pg MCHC (32.0-36.0) g/dL RDW Std Deviation (36.4-46.3) fL RDW Coeff of Francesca (11.5-14.5) % Plt Count (130-400) K/uL MPV (9.4-12.4) fL Immature Gran % (Auto) % Neut % (Auto) % Lymph % (Auto) % [place] % (Auto) % Eos % (Auto) % Baso % (Auto) % Neut # (Auto) (1.40-6.50) K/uL Lymph # (Auto) (1.20-3.40) K/uL [place] # (Auto) (0.11-0.59) K/uL Eos # (Auto) (0.00-0.50) K/uL Baso # (Auto) (0.00-0.20) K/uL Immature Gran # (Auto) (0.01-0.20) K/uL PT INR APTT PTT Ratio Sodium (136-145) mmol/L Potassium (3.5-5.1) mmol/L Chloride (98-107) mmol/L Carbon Dioxide (21-32) mmol/L Anion Gap (3-11) BUN (6-23) mg/dl Creatinine (0.6-1.2) mg/dl Est Cr Clr Drug Dosing eGFR BUN/Creatinine Ratio (10-20) Glucose (70-99(Fasting)) mg/dl POC Glucose 186 H 227 H (70-99) mg/dl Osmolality (280-300) mOsm/kg Calcium (8.6-10.3) mg/dl Magnesium (1.7-2.4) mg/dl Total Bilirubin (0.2-1.0) mg/dl AST (13-39) U/L ALT (7-52) U/L Alkaline Phosphatase (34-104) U/L Total Protein (6.0-8.3) gm/dl Albumin (3.4-5.0) gm/dl Globulin (2.5-4.0) gm/dl Albumin/Globulin Ratio (0.9-2) Urine Osmolality (500-800) mOsm/kg Ur Random Sodium mmol/L SARS-CoV-2 (PCR) NEGATIVE (Negative) Influenza Type A (PCR) Negative (Neg) Influenza Type B (PCR) Negative (Neg) RSV (RT-PCR) Negative (Neg) 07/19/24 07/19/24 07/19/24 Range/Units 19:56 16:30 16:19 WBC (4.8-10.8) K/ul RBC (4.20-5.40) M/uL Hgb (12.0-16.0) g/dl Hct (37.0-47.0) % MCV (80.0-100.0) fL MCH (25.0-34.0) pg MCHC (32.0-36.0) g/dL RDW Std Deviation (36.4-46.3) fL RDW Coeff of Francesca (11.5-14.5) % Plt Count (130-400) K/uL MPV (9.4-12.4) fL Immature Gran % (Auto) % Neut % (Auto) % Lymph % (Auto) % [place] % (Auto) % Eos % (Auto) % Baso % (Auto) % Neut # (Auto) (1.40-6.50) K/uL Lymph # (Auto) (1.20-3.40) K/uL [place] # (Auto) (0.11-0.59) K/uL Eos # (Auto) (0.00-0.50) K/uL Baso # (Auto) (0.00-0.20) K/uL Immature Gran # (Auto) (0.01-0.20) K/uL PT INR APTT PTT Ratio Sodium 123 L (136-145) mmol/L Potassium 5.3 H (3.5-5.1) mmol/L Chloride 94 L (98-107) mmol/L Carbon Dioxide 22 (21-32) mmol/L Anion Gap 7 (3-11) BUN 19 (6-23) mg/dl Creatinine 0.47 L (0.6-1.2) mg/dl Est Cr Clr Drug Dosing 76.7 eGFR 100.46 BUN/Creatinine Ratio 40.4 H (10-20) Glucose 221 H (70-99(Fasting)) mg/dl POC Glucose 233 H (70-99) mg/dl Osmolality (280-300) mOsm/kg Calcium 11.0 H (8.6-10.3) mg/dl Magnesium (1.7-2.4) mg/dl Total Bilirubin (0.2-1.0) mg/dl AST (13-39) U/L ALT (7-52) U/L Alkaline Phosphatase (34-104) U/L Total Protein (6.0-8.3) gm/dl Albumin (3.4-5.0) gm/dl Globulin (2.5-4.0) gm/dl Albumin/Globulin Ratio (0.9-2) Urine Osmolality 392 L (500-800) mOsm/kg Ur Random Sodium 61 mmol/L SARS-CoV-2 (PCR) (Negative) Influenza Type A (PCR) (Neg) Influenza Type B (PCR) (Neg) RSV (RT-PCR) (Neg) 07/19/24 07/19/24 07/19/24 Range/Units 15:03 12:30 11:21 WBC 17.82 H (4.8-10.8) K/ul RBC 3.97 L (4.20-5.40) M/uL Hgb 12.6 (12.0-16.0) g/dl Hct 37.3 (37.0-47.0) % MCV 94.0 (80.0-100.0) fL MCH 31.7 (25.0-34.0) pg MCHC 33.8 (32.0-36.0) g/dL RDW Std Deviation 45.9 (36.4-46.3) fL RDW Coeff of Francesca 13.2 (11.5-14.5) % Plt Count 674 H (130-400) K/uL MPV 8.7 L (9.4-12.4) fL Immature Gran % (Auto) 1.8 % Neut % (Auto) 82.7 % Lymph % (Auto) 7.4 % [place] % (Auto) 7.4 % Eos % (Auto) 0.4 % Baso % (Auto) 0.3 % Neut # (Auto) 14.75 H (1.40-6.50) K/uL Lymph # (Auto) 1.31 (1.20-3.40) K/uL [place] # (Auto) 1.31 H (0.11-0.59) K/uL Eos # (Auto) 0.07 (0.00-0.50) K/uL Baso # (Auto) 0.06 (0.00-0.20) K/uL Immature Gran # (Auto) 0.32 H (0.01-0.20) K/uL PT 10.3 Cancelled INR 0.9 Cancelled APTT 22 Cancelled PTT Ratio 0.8 Cancelled Sodium 124 L 121 L (136-145) mmol/L Potassium 5.1 5.0 (3.5-5.1) mmol/L Chloride 95 L 85 L (98-107) mmol/L Carbon Dioxide 23 29 (21-32) mmol/L Anion Gap 6 7 (3-11) BUN 19 22 (6-23) mg/dl Creatinine 0.44 L 0.58 L (0.6-1.2) mg/dl Est Cr Clr Drug Dosing Not Reportable Not Reportable eGFR 102.07 95.49 BUN/Creatinine Ratio 43.2 H 37.9 H (10-20) Glucose 203 H 244 H (70-99(Fasting)) mg/dl POC Glucose (70-99) mg/dl Osmolality 273 L (280-300) mOsm/kg Calcium 10.9 H D 13.1 H* (8.6-10.3) mg/dl Magnesium 1.8 (1.7-2.4) mg/dl Total Bilirubin 0.5 (0.2-1.0) mg/dl AST 21 (13-39) U/L ALT 33 (7-52) U/L Alkaline Phosphatase 139 H (34-104) U/L Total Protein 7.5 (6.0-8.3) gm/dl Albumin 3.9 (3.4-5.0) gm/dl Globulin 3.6 (2.5-4.0) gm/dl Albumin/Globulin Ratio 1.1 (0.9-2) Urine Osmolality (500-800) mOsm/kg Ur Random Sodium mmol/L SARS-CoV-2 (PCR) (Negative) Influenza Type A (PCR) (Neg) Influenza Type B (PCR) (Neg) RSV (RT-PCR) (Neg) Diagnostic Findings Chest X-Ray 07/19/24 11:14 XR chest 1V portable CLINICAL HISTORY: weakness COMPARISON STUDY: Chest CT June 02, 2024. FINDINGS: A left lower lobe mass is again noted. A right lower lobe mass is obscured on this exam. Additional smaller pulmonary nodules are present. A moderate right pleural effusion has developed. There is no pneumothorax. Interstitial thickening is present. Hazy right lower lung opacity is noted. Cardiomediastinal silhouette is stable. There are surgical clips within the neck. IMPRESSION: 1. Interval development of a moderate right pleural effusion. 2. Interstitial thickening suggestive of mild pulmonary edema. 3. 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 ACT 112: Negative or not required by law. Electronically signed by: Julio Smith M.D. 07/19/2024 12:45 PM Abdomen/Pelvis CT 07/19/24 11:35 CT abd pelvis wo con CLINICAL HISTORY: Vomiting. Unable to keep anything down for the pa TECHNIQUE: Helical axial images of the abdomen and pelvis were obtained. Automated dose lowering techniques and/or adjustment according to patient size were utilized for this exam. This exam was performed without intravenous contrast. CT DOSE: 332.84 mGy.cm COMPARISON: Comparison is made to CT abdomen pelvis 06/02/2024 and PET/CT 06/28/2024 FINDINGS: Exam is limited by patient motion. Lower chest: Left lower lung mass is seen. Moderate right and trace left pleural effusions. Liver: Partial visualization of hepatic hypodensity is corresponding to previously noted hepatic metastasis. Gallbladder and biliary tree: No calcified gallstones. Normal caliber wall. No intra- or extrahepatic biliary ductal dilation. Pancreas: Unremarkable, no focal lesions. Spleen: Calcifications are noted in the spleen compatible with prior granulomatous disease. Adrenals: Left adrenal lesion is again seen. Kidneys and ureters: Unremarkable. Bladder: Limited evaluation due to underdistention. Reproductive organs: Unremarkable. Bowel: Multiple gas-distended loops of large bowel are seen. Lymph nodes Retroperitoneal: Unremarkable. Pelvic: Unremarkable. Mesenteric: Unremarkable. Peritoneum: Normal. Vessels: Unremarkable. Abdominal wall: Unremarkable. Bones: Numerous lytic lesions in the skeleton are again seen. IMPRESSION: 1. No evidence of small bowel obstruction. Prominent gas and stool in the colon is similar to prior exams. 2. Pulmonary, hepatic, adrenal, and bony metastatic foci are again seen, better visualized on PET/CT. ACT 112: Negative or not required by law. Electronically signed by: Domenic Crawford M.D. 07/19/2024 12:58 PM Chest X-Ray 07/20/24 12:46 XR chest 1V portable HISTORY: 74 years-old Female post thora status post thoracentesis COMPARISON: Chest radiograph 07/19/2024, PET/CT 06/28/2024 TECHNIQUE: AP view of the chest FINDINGS: Small right pleural effusion is decreased in size status post thoracentesis. No postprocedural pneumothorax identified. Bilateral pulmonary nodules with masslike opacities of the lung bases redemonstrated, better evaluated on prior PET/CT. No overt pulmonary edema. Mild bibasilar atelectasis. Bones appear grossly intact. Surgical clips of the lower neck/upper chest. IMPRESSION: 1. Small right pleural effusion has decreased in size status post thoracentesis. 2. No postprocedural pneumothorax. 3. Please refer to the PET/CT from 06/28/2024 for additional findings. ACT 112: Negative or not required by law. The above report was generated using voice recognition software. It may contain grammatical, syntax or spelling errors. Electronically signed by: Sagar Ball M.D. 07/20/2024 2:44 PM PG Care Time/CCT Total # of Minutes Spent Total Time Spent with Patient: Total time spent is greater than 50% in coordination of care (as documented) at patient's floor/unit and/or counseling patient: I spent 110 minutes overall addressing this case: 15 min in medical data review/discussion with referring provider(s) and/or preparation for the visit 20 min in direct interaction with the patient/exam 45 min in Advance Care Planning/Goals of Care discussions as detailed above in note (must be >16min) 15 min in subsequent review and synthesis of assessment and plan 15 min communicating with other providers regarding the josef prieto's case: Advanced Care Planning 21904 Advanced Care Planning 30 Min 91181 Advanced Care Planning Additional 30 [place] [address] IN/OBS CONSULT LVL 4,60M (25 - SIGNIFICANT, SEPARATELY IDENTIFIABLE ) Patient Type New History Comprehensive Exam Comprehensive Medical Decision Making High Complexity Diagnoses Anxiety associated with cancer diagnosis F41.1; C80.1 Anxiety associated with dying process F41.1 Dyspnea and respiratory abnormalities R06.00; R06.89 Weakness generalized R53.1 Palliative care by specialist Z51.5 Advanced care planning/counseling discussion Z71.89 Lung cancer metastatic to brain C34.90; C79.31 Metastatic lung cancer (metastasis from lung to other site) C34.90 Additional Codes Advanced Care Planning - 92088 Advanced Care Planning 30 Min: 28617 Advanced Care Planning 30 Min ([id number]) Advanced Care Planning - 96329 Advanced Care Planning Additional 30 Min: 21714 Advanced Care Planning Additional 30 Min ([id number])
[2024-07-21] MEDS ORDERED: MoRPHine SULFATE 2 MG/ML CARP IV PRN (12:56)
--- NOTE | 2024-07-21 13:23 | Hospitalist Progress Note ---
Date of Service July 21, 2024 Assessment & Plan (1) Hypercalcemia of malignancy: Plan: Now resolved (2) Pleural effusion: Plan: Now s/p Thoracentesis Much improved SOB (3) Lung cancer metastatic to brain: Plan: Recent brain MRI on 06/07 revealed dural metastasis with suspected primary lung malignancy PET scan on 06/28 revealed avid pulmonary, skeletal, hepatic, and adrenal lesions consistent with metastatic disease Patient was reportedly supposed to undergo chemotherapy, but was too weak Rad Onc consult appreciated, Focus palliative mgt Palliative on board She is hospice appropriate (4) Nausea and vomiting: Plan: Patient presented on 07/19 at the behest of the cancer center after having outpatient lab work drawn to night prior She was urgently supposed to receive brain radiation this morning, but was deemed too weak Also gradual worsening of N/V over the past month A/P CT without evidence of SBO Nausea better today (5) Leukocytosis: Plan: Leukocytosis at 17.82 with neutrophil predominance and left shift; afebrile Unclear etiology; she has had elevated WBCs since June, however this is slightly bumped from prior Blood cultures ordered, pending will continue empiric IV zosyn (6) Hyponatremia: Plan: Na 121 on arrival NSS 1000 mL IV x 2 Seizure precautions SIADH labs ordered, pending Trend BMP q4h for now (7) Diabetes mellitus type 1, controlled: Plan: Last A1c at 7.6% on 03/15/2024 Patient normally takes Lantus 16 units in the mornings Lantus 8u BID while inpatient Loose SSI with target BSG range 110-140mg/dL T2DM diet BSG ACHS Adjust regimen as needed Pharmacy glycemic consult appreciated (8) Malnutrition: Plan: moderate malnutrition, BMI 18.9 due to cancer and poor po intake add nutritional supplements Plan Disposition: D/C home, possibly with hospice at some point DNR/DNI T1DM diet (minced/moist) VTE PPx: Heparin 5000 units SQ x 1 the evening of 07/19; hold additional chemical DVT PPx prior to potential thoracentesis, and then restart after pulm eval; teds Admission and Anticipated Discharge Date Admission Date: July 19, 2024 Subjective patient seen and examined, feels better after the thoracentesis but still weak and frail Review of Systems Review of Systems: All systems reviewed are negative, apart from the ones contained in the history. Physical Exam Physical Exam: The patient is awake, alert and oriented 3, looks frail HEENT--PERRL, EOMI, mucous membranes and oropharynx mildly dry Neck--supple. No JVD. No bruits. Thyroid normal, trachea midline, no adenopathy. Heart--normal S1 and S2. No murmurs, rubs or gallops. Lungs--clear bilaterally, no respiratory distress, no accessory muscle use. Abdomen--normal bowel sounds and soft. Extremities--no cyanosis or clubbing. No edema. Dermatologic--normal skin turgor, normal color, no abnormal lymph nodes, no rash. Neurologic--cranial nerves II through XII grossly intact. Rheumatologic--normal range of motion. Psychiatric--normal affect. Results & Data Results & Data Vital Signs (Past 12 Hours) Vital Signs Temp Pulse Pulse Resp BP BP Pulse Ox 07/21/24 11:52 98.1 F 106 H 19 110/62 94 07/21/24 07:53 98.1 F 106 H 19 111/52 L 92 07/21/24 06:57 83 07/21/24 04:00 98.1 F 99 H 18 122/76 95 O2 Del Method 07/21/24 11:52 Room Air 07/21/24 07:53 Room Air 07/21/24 06:57 07/21/24 04:00 Room Air PG Care Time/CCT Total # of Minutes Spent Total Time Spent with Patient: Total time spent is greater than 50% in coordination of care (as documented) at patient's floor/unit and/or counseling patient: Coding Level of Care Code 72001 SUB INP/OBS CARE 2/35MIN Diagnoses Hypercalcemia of malignancy E83.52 Pleural effusion J90 Lung cancer metastatic to brain C34.90; C79.31 Nausea and vomiting R11.2 Leukocytosis D72.829 Hyponatremia E87.1 Diabetes mellitus type 1, controlled E10.9 Malnutrition E46 Time Spent (min) 35
--- NOTE | 2024-07-21 18:53 | XCELERA ---
[id number] \\[id number]
[2024-07-22] MEDS: INSULIN ASPART PER UNIT CHARGE SC SCH (02:12)
[2024-07-22 07:13] LABS: Basophils # (auto) 0.04 K/uL (0.00-0.20); Basophils % (auto) 0.3 %; Eosinophils # (auto) 0.05 K/uL (0.00-0.50); Eosinophils % (auto) 0.3 %; Hematocrit (blood only) 32.5 % (37.0-47.0); Hemoglobin 10.5 g/dl (12.0-16.0); Immature Granulocytes # (auto) 0.28 K/uL (0.01-0.20); Immature Granulocytes % (auto) 1.8 %; Lymphocytes # (auto) 0.91 K/uL (1.20-3.40); Mean Corpuscular Hemoglobin 30.7 pg (25.0-34.0); Mean Corpuscular Hgb Conc 32.3 g/dL (32.0-36.0); Mean Platelet Volume 8.3 fL (9.4-12.4); Monocytes # (auto) 1.78 K/uL (0.11-0.59); Monocytes % (auto) 11.7 %; Neutrophils # (auto) 12.16 K/uL (1.40-6.50); Neutrophils % (auto) 79.9 %; Platelet Count 444 K/uL (130-400); RDW Coefficient of Variation 13.5 % (11.5-14.5); RDW Standard Deviation 47.8 fL (36.4-46.3); Red Blood Count 3.42 M/uL (4.20-5.40); White Blood Count 15.22 K/ul (4.8-10.8)
[2024-07-22 07:38] LABS: BUN Creatinine Ratio 24.6 (10-20); Calcium 10.2 mg/dl (8.6-10.3); Creatinine Clr Calc Pharmacy 64.8 ml/min; Potassium 4.7 mmol/L (3.5-5.1)
--- NOTE | 2024-07-22 10:25 | Hospitalist Progress Note ---
Date of Service July 22, 2024 Assessment & Plan (1) Hypercalcemia of malignancy: Plan: Now resolved (2) Pleural effusion: Plan: Now s/p Thoracentesis Much improved SOB (3) Lung cancer metastatic to brain: Plan: Recent brain MRI on 06/07 revealed dural metastasis with suspected primary lung malignancy PET scan on 06/28 revealed avid pulmonary, skeletal, hepatic, and adrenal lesions consistent with metastatic disease Patient was reportedly supposed to undergo chemotherapy, but was too weak Rad Onc consult appreciated, Focus palliative mgt Palliative on board She is hospice appropriate (4) Nausea and vomiting: Plan: Patient presented on 07/19 at the behest of the cancer center after having outpatient lab work drawn to night prior She was urgently supposed to receive brain radiation this morning, but was deemed too weak Also gradual worsening of N/V over the past month A/P CT without evidence of SBO Nausea better today, but appetite still poor (5) Leukocytosis: Plan: Unclear etiology, most likely from cancer. she has had elevated WBCs since June, however this is slightly bumped from prior Blood cultures ordered, pending will continue empiric IV zosyn (6) Hyponatremia: Plan: Na 121 on arrival NSS 1000 mL IV x 2 Seizure precautions SIADH labs ordered, pending Trend BMP q4h for now (7) Diabetes mellitus type 1, controlled: Plan: Last A1c at 7.6% on 03/15/2024 Patient normally takes Lantus 16 units in the mornings Lantus 8u BID while inpatient Loose SSI with target BSG range 110-140mg/dL T2DM diet BSG ACHS Adjust regimen as needed Pharmacy glycemic consult appreciated (8) Malnutrition: Plan: moderate malnutrition, BMI 18.9 due to cancer and poor po intake add nutritional supplements Plan Disposition: D/C home, possibly with hospice at some point DNR/DNI T1DM diet (minced/moist) VTE PPx: Heparin 5000 units SQ x 1 the evening of 07/19; hold additional chemical DVT PPx prior to potential thoracentesis, and then restart after pulm eval; teds Admission and Anticipated Discharge Date Admission Date: July 19, 2024 Subjective patient seen and examined, feels better after the thoracentesis but still weak and frail Review of Systems Review of Systems: All systems reviewed are negative, apart from the ones contained in the history. Physical Exam Physical Exam: The patient is awake, alert and oriented 3, looks frail HEENT--PERRL, EOMI, mucous membranes and oropharynx mildly dry Neck--supple. No JVD. No bruits. Thyroid normal, trachea midline, no adenopathy. Heart--normal S1 and S2. No murmurs, rubs or gallops. Lungs--clear bilaterally, no respiratory distress, no accessory muscle use. Abdomen--normal bowel sounds and soft. Extremities--no cyanosis or clubbing. No edema. Dermatologic--normal skin turgor, normal color, no abnormal lymph nodes, no rash. Neurologic--cranial nerves II through XII grossly intact. Rheumatologic--normal range of motion. Psychiatric--normal affect. Results & Data Results & Data Vital Signs (Past 12 Hours) Vital Signs Temp Pulse Pulse Resp BP Pulse Ox O2 Del Method 07/22/24 08:00 92 H 07/22/24 07:35 97.7 F 94 H 18 100/66 93 Room Air 07/22/24 04:17 98.1 F 97 H 17 102/66 95 Room Air 07/21/24 23:17 98.1 F 97 H 17 107/66 96 Room Air 07/21/24 22:44 91 H PG Care Time/CCT Total # of Minutes Spent Total Time Spent with Patient: Total time spent is greater than 50% in coordination of care (as documented) at patient's floor/unit and/or counseling patient: Coding Level of Care Code 91842 SUB INP/OBS CARE 2/35MIN Diagnoses Hypercalcemia of malignancy E83.52 Pleural effusion J90 Lung cancer metastatic to brain C34.90; C79.31 Nausea and vomiting R11.2 Leukocytosis D72.829 Hyponatremia E87.1 Diabetes mellitus type 1, controlled E10.9 Malnutrition E46 Time Spent (min) 35
--- NOTE | 2024-07-22 10:42 | Palliative Family Discussion ---
Date of Service July 22, 2024 0905 am Patient Directed Conference contacted by family 0900 for urgent family meeting/ACP discussion Telephonic ACP Meetin-1040am Participants: Elina Villela DNP Patient participation: no, pt deferred to and daughter/Usha Patient Support System: , dtr usha, then additional family: grayson amezquita and also present during call with usha and Other Healthcare Provider Participation: None Meeting Location: telephonic Advanced Directive available: yes, pt very clear she does not want cancer rx, wants to be home with family and wants to spend as much time with them as she can, does not want to be in hospital or have other aggressive care, reaffirms DNR/DNI. PT wants home hospice but only if her family is in agreement This ACP meeting was held for KAREN MCRAE. This meeting was necessary for determining the appropriate course of treatment. Topics of Discussion Topics of Discussion: 1. A telephonic ACP meeting was urgently held this morning at request of patient and family. Family shared they visited with pt yesterday and discussed all options at length. Everyone is in agreement for home with hospice. is clear he does not want her in SNF or away from home. He understands the cancer treatment at this point will hurt more than help given her growing frailty, cachexia, malnutrition, worsening PS and progressive dyspnea. Family expressed some frustration about how her early symptoms perhaps were not examined more in depth, everyone believed she had sciatica and she did initially feel better with treatment for same but when the meds were completed all her symptoms resumed. 2. They want her home with hospice as soon as possible. They will need a hospital bed and some other DME. they shared that they have friends who can donate some DME and I reviewed the hospice benefit: an interdisciplinary program offered by nurses, nurses aides, social workers, chaplains and a manager medical device for patients with a terminal condition and a life expectancy of less than 6 months. This is covered by Medicare at 100%/no out of pocket expense to patient and all meds/supplies needed by patient for the reason they are on hospice are paid for/covered by hospice. The goal is assure quality of life of the patient in their home setting (home, shelter, inpatient hospice setting) by providing symptoms management, psychosocial and spiritual support. However, they cannot offer 24 hours care and if the family is unable to provide that care, they will have to consider personal care with out of pocket cost vs. shelter placement. We discussed the goals of hospice as a patient service and the goals of care; we discussed EOL trajectories and transitions odalys the emotional impact of realizing mortality as a concrete reality from prior abstract considerations. Pt was reassured that no matter where they are along this trajectory, they are not alone - their medical team will remain by their side through their journey. Discussed the pros/cons of accepting help when especially weakened and distressed by pain-which would also help provide relief/decrease caregiver burden/strain. 3. They would like [facility]. Care mgt will assist. Other Content of Meetin. Opportunity given for participants to speak and ask questions. 2. Participants were assured of attention to patient comfort. 3. Reassurance provided. 4. Support was provided for informed, good-macie decisions. 5. Emotions expressed by family were acknowledged and addressed. 6. I reviewed that Dying patients fear dyspnea and pain, therefore, symptom control is one cornerstone of pulmonary palliative care. Dyspnea is a prominent symptom of the patient with advanced respiratory disease of any cause: nearly all patients with COPD had dyspnea during the last 3 days of their lives. We also discussed the Dying process: Discussed changes pt may move through in the dying process including but not limited to sleeping more, disorientation when awake, restlessness, diminished senses/inability to respond to stimulus although ability to be aware of them remains intact longer, and changes in body temperatures, skin changes/mottling/cyanosis, respiratory pattern changes, and oral secretions. Family verbalized understanding. The goal is to assure a peaceful . 7. Re: Oxygen at EOL: For patients at the end of life, oxygen delivered by a nasal cannula provides no additional symptomatic benefit for relief of refractory dyspnea in patients with life-limiting illness compared with room air: there's a point at which that the oxygen level gets so low that it's no longer compatible with life. By providing supplemental oxygen, the dying process will be unnecessarily prolonged. Please use less burdensome but more effective strategies such as comfort care meds, oscillating fan, massage, repositioning, etc. (Marya AP, Shatne CF, Fernando PA, et al. Effect of palliative oxygen versus room air in relief of breathlessness in patients with refractory dyspnoea: a double-blind, randomised controlled trial. Lancet. 2010;376(8025):973-449. doi:10.1016/X5088-0812456-7128(24)01522-4) 8. RE: Secretions at EOL/management: I discussed with family that as the level of consciousness decreases in the dying process, patients lose their ability to swallow and clear oral secretions. As air moves over the secretions, which have pooled in the oropharynx and bronchi, the resulting turbulence produces noisy ventilation with each breath, described as gurgling or rattling noises. While there is no evidence that patients find this rattle disturbing, evidence from bereaved surveys suggests the noises can be disturbing to the patients visitors and caregivers who may fear that the patient is choking to . We recommend a combination of Non-Pharmacological and Pharmacological Treatments: * 1. Position the patient on their side or in a semi-prone position to facilitate postural drainage * 2. Communication with family and caregivers to reaffirm commitment to their loves ones care, reduce anxiety and fears. * 3. Gentle oropharyngeal suctioning is used although this can be ineffective when fluids are beyond the reach of the catheter. Avoid deep suctioning as it is very irritating. Note that frequent suctioning is disturbing to both the patient and the visitors. * 4. Reduction of fluid intake. * 5. Consider a 1-2 min Trendelenburg positioning, to move fluids up into the oropharynx for easier removal BUT note that ASPIRATION RISK WILL INCREASE. * 6. Muscarinic receptor blockers (anti-cholinergic drugs) are most often used: glycopyrrolate (Robinul), scopolamine (Transderm Scop), hyoscyamine and atropine. Of these, I prefer to using glycopyrrolate as first line treatment, because it is a quaternary amine (therefore does not cross the blood-brain barrier) which reduces the potential anti cholinergic agent associated WALL TAPER toxicity (sedation, delirium). * 7. Glycopyrrolate has five times the anti-secretory potency compared to atropine, while scopolamine dries/thickens secretions and causes dry mouth, which may be more distressing to the patient and detract from comfort. Time Involved in Meeting: I spent 70 minutes overall addressing this ACP case: 5 in medical data review/discussion with referring provider(s) and/or preparation for the visit 000 in direct interaction with the patient - this was a teleconf with family at pt request 45 Advance Care Planning/Goals of Care discussions as detailed above in note (must be >16min) 10 in subsequent review and synthesis of assessment and plan 10 in communicating with other providers regarding the patient's case: Dr Galdamez, nursing, care mgt
[2024-07-22] MEDS: bisacodyL 10 MG SUPP PR STA (10:46)
[2024-07-22] MEDS: LANTUS PER UNIT CHARGE SC ONE (12:24)
[2024-07-22] MEDS: LORazepam 2 MG/1 ML VIAL IV PRN (21:08)
[2024-07-23 03:14] VITALS: O2SAT 95
[2024-07-23 07:36] VITALS: PULSE 89; RESP 19; TEMP 97.3
[2024-07-23] MEDS: LANTUS PER UNIT CHARGE SC SCH (09:02)
[2024-07-23] MEDS: POLYETHYLENE (MIRALAX) 17 GM PACK PO SCH (09:02)
--- NOTE | 2024-07-23 11:47 | Hospitalist Progress Note ---
Date of Service July 23, 2024 Assessment & Plan (1) Hypercalcemia of malignancy: Plan: Now resolved (2) Pleural effusion: Plan: Now s/p Thoracentesis Much improved SOB (3) Lung cancer metastatic to brain: Plan: Recent brain MRI on 06/07 revealed dural metastasis with suspected primary lung malignancy PET scan on 06/28 revealed avid pulmonary, skeletal, hepatic, and adrenal lesions consistent with metastatic disease Patient was reportedly supposed to undergo chemotherapy, but was too weak Rad Onc consult appreciated, Focus palliative mgt Palliative on board She is hospice appropriate morphine for air hunger (4) Nausea and vomiting: Plan: Patient presented on 07/19 at the behest of the cancer center after having outpatient lab work drawn to night prior She was urgently supposed to receive brain radiation this morning, but was deemed too weak Also gradual worsening of N/V over the past month A/P CT without evidence of SBO Nausea better today, but appetite still poor (5) Leukocytosis: Plan: Unclear etiology, most likely from cancer. she has had elevated WBCs since June, however this is slightly bumped from prior Blood cultures negative Initially on empiric IV zosyn, this has been stopped (6) Hyponatremia: Plan: Na 121 on arrival NSS 1000 mL IV x 2 Seizure precautions SIADH labs ordered, pending Trend BMP q4h for now (7) Diabetes mellitus type 1, controlled: Plan: Last A1c at 7.6% on 03/15/2024 Patient normally takes Lantus 16 units in the mornings Lantus 8u BID while inpatient Loose SSI with target BSG range 110-140mg/dL T2DM diet BSG ACHS Adjust regimen as needed Pharmacy glycemic consult appreciated (8) Malnutrition: Plan: moderate malnutrition, BMI 18.9 due to cancer and poor po intake add nutritional supplements Plan Disposition: D/C home, with hospice when it is set up DNR/DNI T1DM diet (minced/moist) VTE PPx: Heparin 5000 units SQ x 1 the evening of 07/19; hold additional chemical DVT PPx prior to potential thoracentesis, and then restart after pulm eval; teds Admission and Anticipated Discharge Date Admission Date: July 19, 2024 Subjective patient seen and examined, very weak and frail, some labored breathing Review of Systems Review of Systems: All systems reviewed are negative, apart from the ones contained in the history. Physical Exam Physical Exam: The patient is awake, alert and oriented 3, looks frail HEENT--PERRL, EOMI, mucous membranes and oropharynx mildly dry Neck--supple. No JVD. No bruits. Thyroid normal, trachea midline, no adenopathy. Heart--normal S1 and S2. No murmurs, rubs or gallops. Lungs--clear bilaterally, no respiratory distress, no accessory muscle use. Abdomen--normal bowel sounds and soft. Extremities--no cyanosis or clubbing. No edema. Dermatologic--normal skin turgor, normal color, no abnormal lymph nodes, no rash. Neurologic--cranial nerves II through XII grossly intact. Rheumatologic--normal range of motion. Psychiatric--normal affect. Results & Data Results & Data Vital Signs (Past 12 Hours) Vital Signs Temp Pulse Resp BP Pulse Ox O2 Del Method 07/23/24 11:31 Room Air 07/23/24 07:36 97.3 F L 89 19 134/72 95 Room Air 07/23/24 03:14 97.7 F 100 H 18 110/72 95 Room Air PG Care Time/CCT Total # of Minutes Spent Total Time Spent with Patient: Total time spent is greater than 50% in coordination of care (as documented) at patient's floor/unit and/or counseling patient: Coding Level of Care Code 13636 SUB INP/OBS CARE 2/35MIN Diagnoses Hypercalcemia of malignancy E83.52 Pleural effusion J90 Lung cancer metastatic to brain C34.90; C79.31 Nausea and vomiting R11.2 Leukocytosis D72.829 Hyponatremia E87.1 Diabetes mellitus type 1, controlled E10.9 Malnutrition E46 Time Spent (min) 35
[2024-07-23 12:20] VITALS: BP 128/64
--- NOTE | 2024-07-23 12:21 | Discharge Summary ---
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 [facility], vomiting, and weakness. Patient had outpatient labs drawn last night which revealed electrolyte abnormalities, and she was told to go to the ED this morning. Patient's daughter (Marisel) is at bedside and provides additional history. Patient reports that she has had ongoing nausea and vomiting ever since she left the hospital in June, but reports an acute worsening of her nausea and vomiting that began on Monday 07/16. She was told to take 2 tablets of Zofran before every meal, and last night she was able to eat some yogurt and some cream of wheat. Besides this she has had trouble keeping down foods. She is okay drinking shaylee carlos alberto and keeping her pills down. Patient took her regular morning medicine today; no vomiting this morning. She was supposed to have brain radiation this morning, and does report she took that dexamethasone 4 mg today at 1030; however, she was deemed too weak for radiation and told to go to the ED. Patient also took Tylenol this morning for her right shoulder pain. She reports that her right shoulder pain is "not too bad" right now when she is sitting still. Additionally, she has developed SOB at rest and orthopnea over the past 24 hours which have worsened. She slept in her recliner last night, and was unable to rest even propping her head up with 2 pillows. She does not use up on oxygen at baseline or CPAP at night. No sick contacts to her knowledge. She does not use any ambulatory assist devices at home. Her last BM was a couple days ago. Daughter reports that she has not drinking enough fluids at home. She denies smoking, tobacco use, recent alcohol use. No rashes or tick bites noted. Patient's vitals are stable at time admission. ED course: NSS 1000 mL IV x 2 ROS: Patient endorses generalized weakness, nausea, vomiting, conversational dyspnea, SOB at rest, orthopnea, constipation, some tingling in the right arm, and decreased urinary frequency. Patient denies fever, chills, night-sweats, dizziness, lightheadedness, headache, chest pain, abdominal pain, diarrhea, burning with urination, blood in the urine/stool, or numbness/tingling in the legs. Admission Exam (Per Admitting) Constitutional The patient is awake, alert and oriented 3, weak and frail HEENT--PERRL, EOMI, mucous membranes and oropharynx mildly dry Neck--supple. No JVD. No bruits. Thyroid normal, trachea midline, no adenopathy. Heart--normal S1 and S2. No murmurs, rubs or gallops. Lungs--reduced air entry Abdomen--normal bowel sounds and soft. Extremities--no cyanosis or clubbing. No edema. Dermatologic--normal skin turgor, normal color, no abnormal lymph nodes, no rash. Neurologic--cranial nerves II through XII grossly intact. Rheumatologic--normal range of motion. Psychiatric--normal affect. Discharge Data Consultations 07/19/24 15:34 Consult Pulmonology Routine Consult Radiation Oncology Routine 07/21/24 08:51 Consult Palliative Care Routine Hospital Course (1) Hypercalcemia of malignancy: Now resolved (2) Pleural effusion: Now s/p Thoracentesis Much improved SOB (3) Lung cancer metastatic to brain: Recent brain MRI on 06/07 revealed dural metastasis with suspected primary lung malignancy PET scan on 06/28 revealed avid pulmonary, skeletal, hepatic, and adrenal lesions consistent with metastatic disease Patient was reportedly supposed to undergo chemotherapy, but was too weak Rad Onc consult appreciated, Focus palliative mgt Palliative on board She is hospice appropriate morphine for air hunger (4) Nausea and vomiting: Patient presented on 07/19 at the behest of the cancer center after having outpatient lab work drawn to night prior She was urgently supposed to receive brain radiation this morning, but was deemed too weak Also gradual worsening of N/V over the past month A/P CT without evidence of SBO Nausea better today, but appetite still poor (5) Leukocytosis: Unclear etiology, most likely from cancer. she has had elevated WBCs since June, however this is slightly bumped from prior Blood cultures negative Initially on empiric IV zosyn, this has been stopped (6) Hyponatremia: Na 121 on arrival NSS 1000 mL IV x 2 Seizure precautions SIADH labs ordered, pending Trend BMP q4h for now (7) Diabetes mellitus type 1, controlled: Last A1c at 7.6% on 03/15/2024 Patient normally takes Lantus 16 units in the mornings Lantus 8u BID while inpatient Loose SSI with target BSG range 110-140mg/dL T2DM diet BSG ACHS Adjust regimen as needed Pharmacy glycemic consult appreciated (8) Malnutrition: moderate malnutrition, BMI 18.9 due to cancer and poor po intake add nutritional supplements Plan Disposition: D/C home, with hospice when it is set up DNR/DNI T1DM diet (minced/moist) VTE PPx: Heparin 5000 units SQ x 1 the evening of 07/19; hold additional chemical DVT PPx prior to potential thoracentesis, and then restart after pulm eval; teds Coding Level of Care Code 07432 INP/OBS DISCH >30 MIN Diagnoses Hypercalcemia of malignancy E83.52 Pleural effusion J90 Lung cancer metastatic to brain C34.90; C79.31 Nausea and vomiting R11.2 Leukocytosis D72.829 Hyponatremia E87.1 Diabetes mellitus type 1, controlled E10.9 Malnutrition E46 Time Spent (min) 35
== END 2024-07-23 12:58 | disposition hospice, home (50) | DRG 641 ==
LOC: ED 11:05 → SUATTDRO 13:47 → 2S 13:47